=== PATIENT | female | born 1960 | race Caucasian/White ===

== ENCOUNTER → 2016-12-07 | Outpatient (CLI) | payer MEDICAID ==
--- NOTE | 2016-12-12 09:54 | P.ARTDOP ---
Arterial Doppler LOWER EXTREMITY ARTERIAL DOPPLER: DATE OF SERVICE: 12/07/2016 Reason for study: Suspected PVD. Doppler waveforms: Atypical throughout bilaterally. Pulse volume recording: Blunted throughout bilaterally. Pressure gradients: Significant gradient above the low thigh measurement bilaterally. Ankle-brachial indices: 0.64 on the right and 0.65 on the left.. Impression: Moderate bilateral iliofemoral disease suspected. Clinical correlation recommended..
== END | disposition home or self-care (01) ==
LOC: RADUSWWP 21:16
PROVIDERS: ATTEND Internal Medicine
DX: I73.9 Peripheral vascular disease, unspecified (principal)
CPT/HCPCS: 93923

== ENCOUNTER → 2017-08-21 | Outpatient (CLI) | payer MEDICAID ==
--- NOTE | 2017-08-21 12:18 | WWHP ---
[facility] - HISTORY AND PHYSICAL DATE OF SERVICE: 08/21/2017 CHIEF COMPLAINT: The patient is here for her routine gynecologic exam. HPI: This is a 57-year-old, G2, P2-0-0-1 with an LMP of 2002. She is status post PEDRO PABLO/BSO for benign reasons. The patient is here to establish with this office. It has been about 4 years since her last pelvic exam. She is without gynecologic complaints. PAST MEDICAL HISTORY: Chronic hypertension, elevated cholesterol, anxiety, osteopenia, and erythema nodosum. MEDICATIONS: 1. Lisinopril 10 mg daily. 2. Atorvastatin 20 mg daily. 3. Montelukast sodium 10 mg 1 daily p.r.n. 4. Lorazepam 0.5 mg p.r.n. 5. Aspirin 81 mg 1 every other day. 6. Vitamin B complex 1 daily. ALLERGIES: Allergies to IV IODINE, which causes a rash and certain TAPES irritate her skin. PAST SURGICAL HISTORY: Aortic bilateral femoral bypass surgery in 2017, colonoscopy 2011 and this was her fourth one, tonsillectomy at age 6. PAST OB HISTORY: Two vaginal deliveries. One child at 9 months of age from congenital heart disease. 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 She is status post PEDRO PABLO/BSO for benign reasons. SOCIAL HISTORY: She quit smoking in 2017 and previously smoked 1/2 to 1 pack of cigarettes per day. She has about 10 alcohol containing drinks per week and denies drug use. She is and is not seeing anybody at this time and has not been sexually active since 2013. 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 FAMILY HISTORY: Son had congenital heart disease. Mother had breast, colon, and cervical cancer. Father had bone cancer. Sisters had pre-cancerous cervical cells. Mother had type 1 diabetes. Sister has type 2 diabetes. Grandmother has type 1 diabetes. REVIEW OF SYSTEMS: Weight has been stable. She denies respiratory, cardiac or GI problems. PHYSICAL EXAM: Blood pressure 150/73, height 5 feet 9 inches, weight 152 pounds, BMI 22, temperature, pulse 83. This is a well-developed, well-nourished, white female, who is alert and oriented x3, in no acute distress. HEENT is within normal limits. NECK: Supple without mass or thyromegaly. CHEST AND LUNGS: Clear to auscultation. HEART: Regular rate and rhythm. Breasts are without mass or discharge. Axillary exam is negative for adenopathy. BACK: Negative for CVA tenderness. ABDOMEN: Soft, nontender, without palpable masses. PELVIC EXAM: Normal external genitalia with mild atrophy. Vagina reveals mild atrophy without lesions. There is no evidence of prolapse. Bimanual exam is negative for mass or tenderness. Rectovaginal exam is negative for mass or tenderness and is negative for occult blood. EXTREMITIES: Nontender. IMPRESSION: A 57-year-old menopausal female, status post PEDRO PABLO/BSO for benign reasons with normal gynecologic exam. PLAN: 1. Pap smears have been discontinued. 2. Self-breast examination was discussed. 3. Mammogram is due and she has an appointment for the mammogram later this month. An order slip was given to the patient for this. 4. Osteoporosis prevention was discussed. She did have a previous bone density test done and we will obtain records from this. 5. She will return in one year. MMODL / IJN: [id number] /
== END ==
LOC: WWCWWP 08:49
PROVIDERS: ATTEND Obstetrics & Gynecology
DX: Z01.419 Encounter for gynecological examination (general) (routine) without abnormal findings (principal)

== ENCOUNTER → 2017-09-02 | Outpatient (CLI) | payer MEDICAID ==
--- NOTE | 2017-09-03 10:51 | MM ---
Reason for exam: screening (asymptomatic). Last mammogram was performed 4 years and 1 month ago. History: Patient is postmenopausal. Family history of premenopausal breast cancer in mother at age 48 and breast cancer in paternal aunt. Benign right US cyst aspiration of the right breast, July 19, 2008. Took estrogen for 2 years 3 months. Physical Findings: A clinical breast exam by your physician is recommended on an annual basis and results should be correlated with mammographic findings. MG 3D Screening Mammo W/Cad Bilateral CC and MLO view(s) were taken. Prior study comparison: July 21, 2013, bilateral digital screening mammo w/CAD. August 02, 2011, CAD bilateral diagnostic mammogram. The breast tissue is heterogeneously dense. This may lower the sensitivity of mammography. Stable nodule since 2010. No significant changes when compared with prior studies. ASSESSMENT: Benign, BI-RAD 2 RECOMMENDATION: Routine screening mammogram of both breasts in 1 year.
== END | disposition home or self-care (01) ==
LOC: RADMAMWWP 13:50
PROVIDERS: ATTEND Obstetrics & Gynecology
DX: Z12.31 Encounter for screening mammogram for malignant neoplasm of breast (principal)
CPT/HCPCS: 77063; G0202

== ENCOUNTER → 2018-12-24 | Outpatient (CLI) | payer MEDICAID ==
[2018-12-24 09:21] VITALS: BP 171/75; PULSE 84; RESP 20; TEMP 97.6; BMI 24.3
--- NOTE | 2018-12-24 10:57 | P.PN ---
Progress Note - Text Progress Note Date: 12/24/18 Chief Complaint: intermittent bleeding possibly from the vagina over the past 4 months. HPI: This is a 58-year-old 001 with an LMP of 2002. She is status post PEDRO PABLO and BSO for benign reasons in 2001. She has had several episodes where she has had some bleeding from the vaginal or rectal areas. She initially thought this was secondary to a hemorrhoid since she has had problems with hemorrhoids in the past. There have been about 3 times with the bleeding was moderate and could drip into the toilet and was red in color. She states she has not directly looked at the genital and rectal area at these times. By wearing a pad she believes the bleeding was from the vagina yesterday. Yesterday, she had one of the episodes where she noticed blood dripping into the toilet. She states the bleeding does not seem to be associated with bowel movements directly. She has not been sexually active for more than 4 years. She denies putting anything into the vagina. The only activity that she seems to associate with the episodes of bleeding is when she goes out and drinks alcohol. She is not having any bleeding today. ROS: she believes she is getting about 20 pounds since quitting smoking in 2017. Respiratory: she is getting over a cold. She denies any cardiac problems. G.I.: when she eats more sugar, she tends to notice loose stools. She has occasional problems with hemorrhoids. PE: Blood pressure: 171/75, Height: 5'9", Weight: 165 pounds, Temperature: 97.6, Pulse: 84. Pulse oximeter 99%, respiratory rate 20. This is a well developed, well nourished, white female who is alert and orientedx3, in no acute distress. Abdomen: soft, nontender without palpable masses. Pelvic exam: external genitalia reveals mild atrophy without lesions. There is no evidence of blood. The vagina reveals mild atrophy without lesions. There is no evidence of blood or abnormal discharge. No odor is noted. There is no evidence of prolapse. The vaginal cuff is well supported. Bimanual examination is negative for mass or tenderness. Rectovaginal exam: there are no palpable rectal masses or tenderness. This is negative for occult blood. Impression: 1. 58-year-old menopausal female who is status post PEDRO PABLO BSO for benign reasons with intermittent bleeding in the genital area. Differential diagnosis will include bleeding hemorrhoid, vulvar or vaginal bleeding, and less likely, urinary tract bleeding. 2. Unremarkable gynecologic and rectal examination. No evidence of blood is noted at this time. Plan: 1. The patient will keep a symptom calendar. She will try to make note of when this occurs and to see if it is associated with any activity. 2. If she has recurrence of bleeding, she will try to insert a small tampon into the vagina to determine if it is coming from the vagina. I have also asked her to look directly to the vaginal and rectal areas to see if she can see where the blood is coming from. She will also call me see if she can be examined at that time. 3. She will make an appointment for approximately one month for her annual well woman exam. She will also return PRN. Time spent with the patient: 20 minutes
== END ==
LOC: WWCWWP 08:57
PROVIDERS: ATTEND Obstetrics & Gynecology
DX: Z53.9 Procedure and treatment not carried out, unspecified reason (principal)

== ENCOUNTER → 2019-07-20 | Outpatient (CLI) | payer MEDICAID | END | disposition home or self-care (01) | LOC: LABMAIN 22:39 | PROVIDERS: ATTEND Internal Medicine | DX: Z53.9 Procedure and treatment not carried out, unspecified reason (principal) ==

== ENCOUNTER → 2019-07-24 | Outpatient (CLI) | payer MEDICAID ==
--- NOTE | 2019-07-24 12:35 | CT ---
EXAMINATION TYPE: CT chest wo con DATE OF EXAM: 07/24/2019 COMPARISON: Chest x-ray May 04, 2015 HISTORY: 8 mm right upper lobe nodule, recent abnormal outside x-ray. CT DLP: 275.2 mGycm. Automated Exposure Control for Dose Reduction was Utilized. TECHNIQUE: CT scan of the thorax is performed without IV contrast. FINDINGS: LUNGS: Mild underlying emphysematous change most prominent in the upper lungs. [id number] biapi gerardo pleural/parenchymal scarring. Confirmation of 1.0 x 0.9 cm suspicious right upper lobe nodule axi al image 23. No pleural effusion or pneumothorax seen bilaterally. MEDIASTINUM: Lack of IV contrast is noted to limit evaluation for mediastinal and especially hilar ad enopathy. There is borderline subcarinal lymph node measuring 1.6 x 0.9 cm axial image 33. No cardi omegaly or pericardial effusion is seen. Coronary artery calcification is present which is noted jono er for underlying coronary artery disease. OTHER: There is rim calcified 1.0 cm cm splenic artery aneurysm axial image 63 and likely slightly la rger 1.2 cm eccentric rim calcified aneurysm of splenic artery axial image 62. IMPRESSION: Confirmation of suspicious right upper lobe 1.0 cm nodule. Advise PET CT to further evalu ate.
== END | disposition home or self-care (01) ==
LOC: RADCTMAIN 12:00
PROVIDERS: ATTEND Internal Medicine
DX: R91.1 Solitary pulmonary nodule (principal)
CPT/HCPCS: 71250

== ENCOUNTER → 2019-08-01 | Outpatient (CLI) | payer MEDICAID ==
--- NOTE | 2019-08-03 07:00 | PE ---
EXAMINATION TYPE: PET CT fusion skull to thigh DATE OF EXAM: 08/01/2019 COMPARISON: CT chest 07/24/2019 Prior PET/CT: None HISTORY: R 91.1, solitary pulmonary nodule TECHNIQUE: Following the intravenous administration of 12.85 mCi of F-18 FDG, whole body images are performed from the skull base to the midthigh. Images are reviewed on the computer in the coronal, a xial, and sagittal planes. Reconstructed rotating images are created on independent workstation and reviewed on the computer. A localization and attenuation correction CT is performed in conjunction with the PET scan. DLP: 391.03 mGycm SCAN: Initial Blood glucose: 96 mg/dL Average Mediastinum SUV: 1.80 Average Liver SUV: 2.12 FINDINGS: NECK: No abnormal uptake THORAX: There is a focus of radiotracer accumulation within the peripheral right upper lung field cor responding to the solitary pulmonary nodule. This has an SUV value of 3.22. Image 91. There is incre ased radiotracer accumulation in the posterior medial right hilum. This has an SUV value of 4.71, melany ge 103. ABDOMEN: No abnormal uptake PELVIS: No abnormal uptake OSSEOUS STRUCTURES: No abnormal uptake LOCALIZATION CT: Small nodule in the posterior mediastinum corresponds to the uptake on the PET scan. COMPARISON: The thyroid is enlarged and somewhat heterogenous. Findings are stable from the recent CT comparison. IMPRESSION: 1. Uptake within the periphery of the right lung with some uptake within the posterior right hilar/sp inal region viable neoplastic process. Primary and metastatic lesions are within the differential.
== END | disposition home or self-care (01) ==
LOC: RADPETMAIN 11:23
PROVIDERS: ATTEND Internal Medicine
DX: R91.8 Other nonspecific abnormal finding of lung field (principal)
CPT/HCPCS: 78815; A9552

== ENCOUNTER → 2019-09-21 | Outpatient (CLI) | payer MEDICAID ==
--- NOTE | 2019-09-22 07:11 | MR ---
EXAMINATION TYPE: MR brain wo/w con DATE OF EXAM: 09/22/2019 COMPARISON: None HISTORY: F/u to recent lung ca dx CONTRAST: Performed utilizing 7.5 mL intravenous Gadavist gadolinium contrast. TECHNIQUE: Multiplanar, multiecho imaging on a 3.0 Vanita magnet is performed through the brain. Stud y is performed within 24 hours of arrival to the hospital. The craniovertebral junction is normal. The pituitary is normal. Diffusion-weighted imaging is performed. No abnormal hyperintensity is present to suggest an acute i ntracranial infarct or acute ischemic change. There is some T2 hyperintensity within the inferior pos terior cerebellum on the left. Small prior lacunar infarcts could be considered. There is scattered periventricular and subcortical white matter changes. Largest of these is within t he left subcortical parietal lobe white matter and measures 1.4 x 1.1 cm. Series 501 image 19. On the right subcortical white matter changes within the centrum semiovale has a transverse dimension of 0. 7 cm. Series 501 image 21. These are nonspecific but could be related to microvascular ischemic brown e among other etiologies. Some white matter changes within the brainstem. No suspicious enhancing lesions are evident. Ventricles and sulci are appropriate for the patient age. Paranasal sinuses and mastoid air cells within the [id number] are clear. IMPRESSIONS: 1. No suspicious changes suggest metastatic disease. 2. There are multiple scattered bilateral periventricular, subcortical and deep white matter changes within the brain and brainstem. 3. Old tiny subcortical infarcts may be within the left cerebellum
== END | disposition home or self-care (01) ==
LOC: RADMRIMAIN 21:33
PROVIDERS: ATTEND Internal Medicine
DX: I63.9 Cerebral infarction, unspecified (principal); R90.82 White matter disease, unspecified; C34.11 Malignant neoplasm of upper lobe, right bronchus or lung
CPT/HCPCS: 70553; A9585

== ENCOUNTER → 2019-09-22 | Outpatient (CLI) | payer MEDICAID ==
[2019-09-22 12:09] LABS: Basophils # (A) 0.1 k/uL (0-0.2); Basophils % (A) 1 %; Eosinophils # (A) 0.1 k/uL (0-0.7); Eosinophils % (A) 2 %; HCT 41.9 % (34.0-46.0); Lymphocytes # (A) 1.3 k/uL (1.0-4.8); Lymphocytes % (A) 31 %; MCHC 33.5 g/dL (31.0-37.0); MCV 92.5 fL (80.0-100.0); Mean Platelet Volume 6.6; Monocytes # (A) 0.2 k/uL (0-1.0); Monocytes % (A) 3 %; Neutrophils # (A) 2.6 k/uL (1.3-7.7); Neutrophils % (A) 62 %; Platelet Count 302 k/uL (150-450); RBC 4.53 m/uL (3.80-5.40); RDW 13.3 % (11.5-15.5); WBC 4.3 k/uL (3.8-10.6)
[2019-09-22 12:14] LABS: ALT 21 U/L (4-34); AST 22 U/L (14-36); African American GFR (CKD) 84 (>60 ml/min/1.73 sqM); Albumin 4.6 g/dL (3.5-5.0); Albumin/Globulin Ratio 1.6; Alkaline Phosphatase 69 U/L (38-126); Anion Gap 9 mmol/L; Blood Urea Nitrogen 16 mg/dL (7-17); Calcium 9.9 mg/dL (8.4-10.2); Carbon Dioxide 26 mmol/L (22-30); Chloride 106 mmol/L (98-107); Globulin 2.8 g/dL; Glucose 149 mg/dL (74-99); Non-African American GFR(CKD) 73 (>60 ml/min/1.73 sqM); Potassium 4.8 mmol/L (3.5-5.1); Sodium 141 mmol/L (137-145); Total Bilirubin 0.6 mg/dL (0.2-1.3); Total Protein 7.4 g/dL (6.3-8.2)
== END ==
LOC: LABMAIN 11:27
PROVIDERS: ATTEND Nurse Practitioner
DX: C34.11 Malignant neoplasm of upper lobe, right bronchus or lung (principal)
CPT/HCPCS: 36415; 80053; 85025

== ENCOUNTER → 2019-10-05 | Outpatient (CLI) | payer MEDICAID ==
--- NOTE | 2019-10-06 02:26 | XR ---
EXAMINATION TYPE: XR Hip RT and AP Pelvis DATE OF EXAM: 10/06/2019 COMPARISON: NONE HISTORY: Pain TECHNIQUE: 3 views FINDINGS: Pelvic ring appears to show a nondisplaced transverse fracture through the medial aspect of the right acetabulum. This is best seen on the coned-down view of the hip. The proximal femurs are i ntact. Sacroiliac joints are normal. Hip joint spaces are fairly normal. IMPRESSION: There is probably a nondisplaced fracture medial right acetabulum.
== END | disposition home or self-care (01) ==
LOC: RADXRMAIN 23:23
PROVIDERS: ATTEND Physician Assistant
DX: S79.911A Unspecified injury of right hip, initial encounter (principal)
CPT/HCPCS: 73502

== ENCOUNTER → 2019-10-06 | Outpatient (CLI) | payer MEDICAID ==
[2019-10-06 10:10] LABS: Basophils % (A) 1 %; Eosinophils # (A) 0.1 k/uL (0-0.7); Eosinophils % (A) 2 %; HCT 37.8 % (34.0-46.0); HGB 13.2 gm/dL (11.4-16.0); Lymphocytes % (A) 36 %; MCH 31.3 pg (25.0-35.0); MCHC 34.8 g/dL (31.0-37.0); MCV 90.1 fL (80.0-100.0); Mean Platelet Volume 6.5; Monocytes # (A) 0.1 k/uL (0-1.0); Monocytes % (A) 4 %; Neutrophils # (A) 1.4 k/uL (1.3-7.7); Neutrophils % (A) 54 %; Platelet Count 272 k/uL (150-450); RDW 13.6 % (11.5-15.5); WBC 2.7 k/uL (3.8-10.6)
[2019-10-06 10:19] LABS: ALT 38 U/L (4-34); AST 36 U/L (14-36); African American GFR (CKD) >90 (>60 ml/min/1.73 sqM); Albumin 4.6 g/dL (3.5-5.0); Albumin/Globulin Ratio 1.5; Alkaline Phosphatase 77 U/L (38-126); Anion Gap 11 mmol/L; Blood Urea Nitrogen 28 mg/dL (7-17); Calcium 9.7 mg/dL (8.4-10.2); Carbon Dioxide 21 mmol/L (22-30); Chloride 108 mmol/L (98-107); Glucose 115 mg/dL (74-99); Non-African American GFR(CKD) 81 (>60 ml/min/1.73 sqM); Potassium 4.5 mmol/L (3.5-5.1); Sodium 140 mmol/L (137-145); Total Bilirubin 0.6 mg/dL (0.2-1.3); Total Protein 7.6 g/dL (6.3-8.2)
== END | disposition home or self-care (01) ==
LOC: LABMAIN 09:46
PROVIDERS: ATTEND Nurse Practitioner
DX: C34.11 Malignant neoplasm of upper lobe, right bronchus or lung (principal)
CPT/HCPCS: 36415; 80053; 85025

== ENCOUNTER → 2019-10-06 | Outpatient (CLI) | payer MEDICAID ==
--- NOTE | 2019-10-06 10:57 | CT ---
EXAMINATION TYPE: CT hip RT wo con DATE OF EXAM: 10/06/2019 COMPARISON: Pelvic and right hip x-ray earlier today HISTORY: Fall on Sep 18, abn xrays CT DLP: 609.5 mGycm Automated exposure control for dose reduction was used. FINDINGS: Correlating with x-ray there is linear lucency consistent with acute nondisplaced fracture involving the anterior wall and column of acetabulum seen coronal images 33 through 37 in a oblique irregular c ourse less well seen on sagittal and axial images but visualization on axial image 14 is noted. No si gnificant separation. Mild to moderate axial joint space loss right hip is present. No additional pro ximal femur fracture. Pubic symphysis is intact. Pelvic rami show no fracture or extension. Posterior wall and column are intact. Visualized pelvis shows no concerning bowel dilatation or fluid collection. Uterus is suspected surgi bruna absent or atrophic. No free air. Visualized right groin shows no suspicious adenopathy or hernia. Multiple is maintained. IMPRESSION: Confirmation of acute nondisplaced fracture involving the right acetabulum through the an terior wall and column as detailed above.
== END | disposition home or self-care (01) ==
LOC: RADXRMAIN 10:33
PROVIDERS: ATTEND Emergency Medicine
DX: S32.414A Nondisplaced fracture of anterior wall of right acetabulum, initial encounter for closed fracture (principal); S32.434A Nondisplaced fracture of anterior column [iliopubic] of right acetabulum, initial encounter for closed fracture

== ENCOUNTER → 2019-10-20 | Outpatient (CLI) | payer MEDICAID | END | disposition home or self-care (01) | LOC: LABMAIN 10:24 | PROVIDERS: ATTEND Internal Medicine | DX: Z53.9 Procedure and treatment not carried out, unspecified reason (principal) ==

== ENCOUNTER → 2019-11-07 | Outpatient (CLI) | payer MEDICAID ==
--- NOTE | 2019-11-07 20:55 | XR ---
EXAMINATION TYPE: XR Hip Complete RT DATE OF EXAM: 11/07/2019 COMPARISON: 10/06/2019 HISTORY: 59-year-old female history of right acetabular fracture, follow-up exam TECHNIQUE: 2 views FINDINGS: Subtle lucency is seen along the medial acetabular wall at king iliopubic junction. The lucency is le ss well depicted as compared to prior exam. IMPRESSION: Interval incomplete healing change involving the medial right acetabulum. Very subtle lucency remains .
== END | disposition home or self-care (01) ==
LOC: RADXRMAIN 15:28
PROVIDERS: ATTEND Orthopaedic Surgery
DX: S32.491 Other specified fracture of right acetabulum (principal)
CPT/HCPCS: 73502

== ENCOUNTER → 2019-11-07 | Outpatient (CLI) | payer MEDICAID ==
[2019-11-07 16:52] LABS: Anisocytosis Slight; HCT 31.7 % (34.0-46.0); HGB 11.1 gm/dL (11.4-16.0); Hyperchromasia Slight; MCH 32.7 pg (25.0-35.0); MCHC 34.9 g/dL (31.0-37.0); MCV 93.7 fL (80.0-100.0); Macrocytosis Slight; Platelet Count 251 k/uL (150-450); Poikilocytosis Slight; RBC 3.39 m/uL (3.80-5.40); RDW 18.2 % (11.5-15.5); WBC 1.7 k/uL (3.8-10.6)
[2019-11-07 20:36] LABS: Eosinophils # (M) 0.05 k/uL (0-0.7); Lymphocytes # (M) 0.66 k/uL (1.0-4.8); Monocytes # (M) 0.19 k/uL (0-1.0); Neutrophils % (M) 47 %; Nucleated Red Blood Cells 0 /100 WBC (0-0); Total Cells Counted 100
[2019-11-07 23:00] LABS: African American GFR (CKD) 92.9 (60.0-200.0); Albumin 4.8 g/dL (3.80-4.90); Albumin/Globulin Ratio 2.18 (1.60-3.17); Anion Gap 10.9 mmol/L (4.00-12.00); BUN/Creat Ratio 26.25 Ratio (12.00-20.00); Calcium 10.1 mg/dL (8.7-10.3); Carbon Dioxide 23.1 mmol/L (21.6-31.8); Globulin 2.2 g/dL (1.6-3.3); Non-African American GFR(CKD) 80.1 (60.0-200.0); Potassium 4.1 mmol/L (3.5-5.5); Total Bilirubin 0.6 mg/dL (0.2-1.2)
== END | disposition home or self-care (01) ==
LOC: LABMAIN 15:31
PROVIDERS: ATTEND Internal Medicine
DX: C34.11 Malignant neoplasm of upper lobe, right bronchus or lung (principal)
CPT/HCPCS: 36415; 80053; 85025

== ENCOUNTER → 2019-11-17 | Outpatient (CLI) | payer MEDICAID ==
[2019-11-17 15:14] LABS: Anisocytosis Slight; HCT 33.1 % (34.0-46.0); HGB 11.7 gm/dL (11.4-16.0); Hyperchromasia Slight; MCH 33.7 pg (25.0-35.0); MCHC 35.4 g/dL (31.0-37.0); MCV 95.1 fL (80.0-100.0); Macrocytosis Slight; Mean Platelet Volume 6.7; Platelet Count 312 k/uL (150-450); Poikilocytosis Slight; RBC 3.48 m/uL (3.80-5.40); RDW 17.6 % (11.5-15.5); WBC 2.3 k/uL (3.8-10.6)
[2019-11-17 15:57] LABS: Band Neutrophils % 2 %; Lymphocytes # (M) 0.69 k/uL (1.0-4.8); Monocytes # (M) 0.16 k/uL (0-1.0); Neutrophils % (M) 61 %; Nucleated Red Blood Cells 0 /100 WBC (0-0); Total Cells Counted 100
[2019-11-17 18:41] LABS: African American GFR (CKD) 80.5 (60.0-200.0); Albumin 4.6 g/dL (3.80-4.90); Albumin/Globulin Ratio 2.19 (1.60-3.17); Anion Gap 9.5 mmol/L (4.00-12.00); BUN/Creat Ratio 22.22 Ratio (12.00-20.00); Calcium 9.4 mg/dL (8.7-10.3); Carbon Dioxide 22.5 mmol/L (21.6-31.8); Globulin 2.1 g/dL (1.6-3.3); Non-African American GFR(CKD) 69.5 (60.0-200.0); Potassium 3.8 mmol/L (3.5-5.5); Total Bilirubin 0.5 mg/dL (0.2-1.2); Total Protein 6.7 g/dL (6.2-8.2)
== END | disposition home or self-care (01) ==
LOC: LABMAIN 14:31
PROVIDERS: ATTEND Internal Medicine
DX: C34.11 Malignant neoplasm of upper lobe, right bronchus or lung (principal)
CPT/HCPCS: 36415; 80053; 85025

== ENCOUNTER → 2019-12-22 | Outpatient (CLI) | payer MEDICAID | END | disposition home or self-care (01) | LOC: LABMAIN 18:31 | PROVIDERS: ATTEND Internal Medicine | DX: Z53.9 Procedure and treatment not carried out, unspecified reason (principal) ==

== ENCOUNTER → 2019-12-25 | Outpatient (CLI) | payer MEDICAID ==
--- NOTE | 2019-12-29 06:16 | PE ---
EXAMINATION TYPE: PET CT fusion skull to thigh DATE OF EXAM: 12/25/2019 COMPARISON: Prior PET/CT August 01, 2019 HISTORY: Lung cancer progress study. TECHNIQUE: Following the intravenous administration of 11.725 mCi of F-18 FDG, whole body images are performed from the skull base to the midthigh. Images are reviewed on the computer in the coronal, axial, and sagittal planes. Reconstructed rotating images are created on independent workstation and reviewed on the computer. A noncontrast CT is performed in conjunction with the PET scan. SCAN: Subsequent Scan FINDINGS: SKULL BASE AND NECK: No new areas of abnormal hypermetabolic uptake. CHEST, MEDIASTINUM, AND HILAR REGION: Background mild to moderate underlying emphysematous change red emonstrated. Interval improvement in lateral right upper lobe hypermetabolic nodule now measuring 8 x 8 mm axial i mage 84 currently ametabolic versus 10 x 11 mm prior study image 91 where had hypermetabolic uptake. Interval resolution of abnormal hypermetabolic uptake in the subcentimeter right infrahilar lymph nod e prior study axial image 101. No residual hypermetabolic uptake or enlarged nodule seen on current s tudy. No new suspicious nodules or new concerning areas of hypermetabolic uptake. ABDOMEN AND PELVIS: No new adrenal masses. No new areas of abnormal hypermetabolic uptake. Normal exc retion. OSSEOUS STRUCTURES: Mild hypermetabolic uptake lateral aspect right inferior pelvic ramus correspondi ng to subacute or healing fracture axial image 239 narrowing shield tuberosity and the right superior pelvic ramus laterally near the anterior wall acetabulum axial image 223 corresponding to additional healing or subacute fracture. Both new from prior PET/CT. These findings discussed on right hip CT D [id number]. No areas of suspicious hypermetabolic uptake to suggest metastatic disease. OTHER CT: Moderate to severe calcified plaque carotid bulb level right greater than left is redemonst rated. Coronary artery calcification redemonstrated which is noted marker for underlying coronary artery dis ease. Small hiatal hernia redemonstrated. Small calcified splenic artery aneurysms again seen. Moderate-sized fat-containing umbilical hernia r edemonstrated. Uterus surgically absent or markedly atrophic. Spine is straightened on sagittal images. IMPRESSION: 1. Complete positive PET response without residual hypermetabolic uptake in the right upper lung nodu le or right infrahilar adenopathy. No new areas of suspicious hypermetabolic uptake. 2. Better visualization of healing subacute fractures right pelvis lateral aspect superior pelvic ronnie us involving the anterior wall and column of acetabulum and lateral aspect inferior pelvic ramus whic h was less convincing on CT at time of injury. sss
== END | disposition home or self-care (01) ==
LOC: RADPETMAIN 13:48
PROVIDERS: ATTEND Internal Medicine
DX: S32.43 Fracture of anterior column [iliopubic] of acetabulum (principal); S32.591G Other specified fracture of right pubis, subsequent encounter for fracture with delayed healing; C34.11 Malignant neoplasm of upper lobe, right bronchus or lung
CPT/HCPCS: 78815; A9552

== ENCOUNTER → 2020-04-05 | Outpatient (CLI) | payer MEDICAID ==
[2020-04-05 23:32] LABS: Basophils # (A) 0.1 k/uL (0-0.2); Basophils % (A) 1 %; Eosinophils # (A) 0.2 k/uL (0-0.7); Eosinophils % (A) 4 %; HCT 39.5 % (34.0-46.0); HGB 13.1 gm/dL (11.4-16.0); Lymphocytes # (A) 1.3 k/uL (1.0-4.8); Lymphocytes % (A) 26 %; MCH 30.8 pg (25.0-35.0); MCHC 33.2 g/dL (31.0-37.0); MCV 92.7 fL (80.0-100.0); Mean Platelet Volume 6.4; Monocytes # (A) 0.3 k/uL (0-1.0); Monocytes % (A) 7 %; Neutrophils # (A) 2.9 k/uL (1.3-7.7); Neutrophils % (A) 60 %; Platelet Count 237 k/uL (150-450); RBC 4.26 m/uL (3.80-5.40); RDW 13.5 % (11.5-15.5); WBC 4.9 k/uL (3.8-10.6)
[2020-04-05 23:46] LABS: Appearance,Urine Clear (Clear); Bacteria,Urine Rare /hpf; Bilirubin,Urine Negative (Negative); Blood,Urine Negative (Negative); Color,Urine Light Yellow; Glucose,Urine (UA) Negative (Negative); Hyaline Casts,Urine 1 /lpf (0-2); Ketones,Urine Negative (Negative); Leukocyte Esterase,Urine Small (Negative); Mucus,Urine Rare /hpf; Nitrite,Urine Negative (Negative); Protein,Urine Negative (Negative); RBC,Urine <1 /hpf (0-5); Squamous Epithelial Cell,Urine <1 /hpf (0-4); Urobilinogen,Urine <2.0 mg/dL (<2.0); WBC,Urine 1 /hpf (0-5)
[2020-04-06 13:55] LABS: African American GFR (CKD) 70.4 (60.0-200.0); Albumin 4.6 g/dL (3.80-4.90); Anion Gap 11.2 mmol/L (4.00-12.00); Calcium 9.6 mg/dL (8.7-10.3); Carbon Dioxide 20.8 mmol/L (21.6-31.8); Chol/HDL Ratio 3.91; Globulin 2.3 g/dL (1.6-3.3); Non-African American GFR(CKD) 60.8 (60.0-200.0); Total Bilirubin 0.4 mg/dL (0.2-1.2); Total Protein 6.9 g/dL (6.2-8.2)
== END | disposition home or self-care (01) ==
LOC: LABMAIN 16:26
PROVIDERS: ATTEND Internal Medicine
DX: F41.9 Anxiety disorder, unspecified (principal); I10 Essential (primary) hypertension; E55.9 Vitamin D deficiency, unspecified; Z13.9 Encounter for screening, unspecified
CPT/HCPCS: 36415; 80053; 80061; 81001; 82306; 84443; 85025; 86803

== ENCOUNTER 2020-05-20 12:30 | Emergency (ER) | payer MEDICAID ==
[2020-05-20 12:43] VITALS: BP 155/82; PULSE 99; RESP 18; TEMP 98.2
--- NOTE | 2020-05-20 13:24 | ED ---
Lower Extremity Injury HPI - General Chief Complaint: Extremity Injury, Lower Stated Complaint: r foot injury Time Seen by Provider: 05/20/20 12:46 Source: patient Mode of arrival: ambulatory Limitations: no limitations - History of Present Illness Initial Comments: Patient is a 60-year-old female presenting to the emergency Department with complaints of pain in her right foot. Patient states 2 days ago she dropped the lid of a crock pot onto her right foot. Patient states since then she has been limping, swollen and bruised. She denies any previous history of foot fractures. She has no further complaints at this time. Of note, patient is being treated for a mild pelvic fracture on the same right side. Upon arrival to the ER her vitals are stable. - Related Data Home Medications Medication Instructions Recorded Confirmed Atorvastatin [Lipitor] 20 mg PO HS 12/24/18 12/24/18 Lisinopril [Zestril] 10 mg PO DAILY 12/24/18 12/24/18 Montelukast [Singulair] 10 mg PO DAILY PRN 12/24/18 12/24/18 valACYclovir [Valtrex] 500 mg PO DAILY PRN 12/24/18 12/24/18 Allergies Allergy/AdvReac Type Severity Reaction Status Date / Time morphine AdvReac Severe HULLUCINATI Verified 05/20/20 12:43 ON shellfish derived [Shellfish] AdvReac Swelling Verified 05/20/20 12:43 MEDICAL TAPE AdvReac Rash/Hives Uncoded 05/20/20 12:43 Review of Systems ROS Statement: Those systems with pertinent positive or pertinent negative responses have been documented in the HPI. ROS Other: All systems not noted in ROS Statement are negative. Past Medical History Past Medical History: Hypertension Additional Past Medical History / Comment(s): Broken Pelvis History of Any Multi-Drug Resistant Organisms: None Reported Past Surgical History: Hysterectomy, Tonsillectomy Additional Past Surgical History / Comment(s): Aortic Bifemeral Bypass March 13, 2017 Past Psychological History: No Psychological Hx Reported Smoking Status: Never smoker Past Alcohol Use History: None Reported Past Drug Use History: None Reported General Exam - General Exam Comments Initial Comments: GENERAL: Patient is well-developed and well-nourished. Patient is nontoxic and in no acute distress. HEAD: Atraumatic, normocephalic. EYES: Pupils equal round and reactive to light, extraocular movements intact, sclera anicteric, conjunctiva are normal. Eyelids were unremarkable. ENT: Nares patent, oropharynx clear without exudates. Moist mucous membranes. NECK: Normal range of motion, supple without lymphadenopathy or JVD. LUNGS: Unlabored respirations. Breath sounds clear to auscultation bilaterally and equal. No wheezes rales or rhonchi. HEART: Regular rate and rhythm without murmurs, rubs or gallops. ABDOMEN: Soft, nontender, normoactive bowel sounds. No guarding, no rebound. No masses appreciated. : Deferred MUSCULOSKELETAL: Patient has pain with palpation of the dorsal aspect of her right foot, she does also have moderate swelling, bruising to the area. She does have full right ankle and foot range of motion. She is neurovascular intact. No clubbing or cyanosis. NEUROLOGICAL: Normal speech, normal gait. PSYCH: Normal mood, normal affect. SKIN: Warm, Dry, normal turgor, no rashes or lesions noted. Limitations: no limitations Course Vital Signs 05/20/20 12:39 Temperature 98.2 F Pulse Rate 99 Respiratory 18 Rate Blood Pressure 155/82 O2 Sat by Pulse 98 Oximetry Medical Decision Making - Medical Decision Making Patient is a 60-year-old female here for right foot pain after dropping a lid of a crock pot onto the top of her right foot 2 days ago. She does have significant swelling, bruising, pain. X-rays the right foot reveal no acute fractures dislocations, and accessory navicular is present. Patient will continue with ice, elevation for pain. She states she does have a walking boot from a previous injury that she may use for discomfort. She can follow up with her PCP if symptoms persist. She is agreeable with this plan of care. She is stable for discharge. Case discussed with Dr. Lindsay. Disposition Clinical Impression: Contusion of right foot Disposition: HOME SELF-CARE Condition: Stable Instructions (If sedation given, give patient instructions): Foot Contusion (ED) Additional Instructions: Please return to the Emergency Department if symptoms worsen or any other concerns. Continue with ice, elevation. May take ibuprofen for discomfort. Follow up with PCP or orthopedics if symptoms persist. Is patient prescribed a controlled substance at d/c from ED?: No Referrals: Frank Salazar MD [Primary Care Provider] - 1-2 days
--- NOTE | 2020-05-20 13:33 | XR ---
EXAMINATION TYPE: XR foot complete RT DATE OF EXAM: 05/20/2020 COMPARISON: NONE HISTORY: 60-year-old female with pain and swelling TECHNIQUE: 3 views FINDINGS: Mild degenerative change at the first MTP joint. Incidental type I versus type II accessory navicular . There is a Abraham's toe. An os peroneum is also noted. Dorsal soft tissue swelling along the forefo ot and midfoot. Small plantar calcaneal spur. No acute fracture, subluxation, dislocation seen. IMPRESSION: Dorsal sided soft tissue swelling. No acute osseous abnormality seen.
== END 2020-05-20 13:45 | disposition home or self-care (01) ==
LOC: EC 12:30
DX: S90.31XA Contusion of right foot, initial encounter (principal); I10 Essential (primary) hypertension; Z79.899 Other long term (current) drug therapy; Z88.5 Allergy status to narcotic agent; Z91.013 Allergy to seafood; Z88.8 Allergy status to other drugs, medicaments and biological substances; W27.4XXA Contact with kitchen utensil, initial encounter; Y92.009 Unspecified place in unspecified non-institutional (private) residence as the place of occurrence of the external cause
CPT/HCPCS: 99283

== ENCOUNTER → 2020-05-20 | Outpatient (CLI) | payer MEDICAID ==
--- NOTE | 2020-05-20 18:44 | BD ---
EXAMINATION TYPE: Axial Bone Density DATE OF EXAM: 05/20/2020 COMPARISON: 08.02.11 CLINICAL HISTORY: 60 YR OLD FEMALE.....ICD-10 CODE.. XXD FRACTURE. Height: 67 Weight: 175 FRAX RISK QUESTIONS: Glucocorticoids (More than 3mos): YES (Ex: prednisone, prednisolone, methylprednisolone, dexamethasone, and hydrocortisone). History of Fracture in Adulthood: YES Secondary Osteoporosis: YES 3. Menopause before 45: YES Current Tobacco Use: QUIT 3 YRS AGO RISK FACTORS HISTORY OF: PELVIC FRACTURE LT YR Hip Fracture RT HIP....LAST YR Spine Fracture: NONE TO HER KNOWLEDGE Active: NO....USING WALKER...HEALING FRACTURES Postmenopausal woman: YES, AT AGE 41 YRS OLD...TOTAL HYST Take estrogen and/or progesterone medications: ON FOR ONLY 1 YR Lost more than 2 inches in height since high school: YES Frequent falls: UNSTEADY Hyperparathyroidism: NO Adrenal Insufficiency: NO MEDICATIONS: Prednisone or other steroids: LUNG INHALER PRN, FOR YRS Additional Medications: BP MEDS, ZOLOFT, ATIVAN PRN, HX OF CHEMO AND RADIATION, REFLUX MEDS, VIT D , Additional History: HX PF HEALING FXS OF PELVIS, RT HIP, HYPERTENSION, LUNG CANCER EXAM MEASUREMENTS: Bone mineral densitometry was performed using the [employer] System. Bone mineral density as measured about the Lumbar spine is: ----- L1-L4(G/cm2): 1.030 T Score Values are as follows: ----- L1: -1.1 ----- L2: -2.4 ----- L3: -1.0 ----- L4: -0.5 ----- L1-L4: -1.3 Bone mineral density has: Increased 3.7% since study of: 08.02.2011 Bone mineral density about the L hip (g/cm2): 0.710 T Score values are as follows: -----L Neck: -2.4 -----L Total: -2.4 Bone mineral density has: Decreased -0.3% since study of: 08.02.2011 FRAX%s: THERE IS A 30.4% CHANCE FOR A MAJOR OSTEOPOROTIC FX AND 7.0% FOR HIP....PROBABILITY FOR F X IN 10 YRS TIME IMPRESSION: Osteopenia (T Score between -2.5 and -1). Note that measurements border on osteoporosis at the left h ip. There is slightly increased risk of fracture and the patient may be considered for treatment. Re-Screen 2-5 years. NOTE: T-SCORE=SD OF THE YOUNG ADULT MEAN.
== END | disposition home or self-care (01) ==
LOC: RADBDWWP 11:02
PROVIDERS: ATTEND Internal Medicine
DX: M85.80 Other specified disorders of bone density and structure, unspecified site (principal)
CPT/HCPCS: 77080

== ENCOUNTER → 2020-06-18 | Outpatient (CLI) | payer MEDICAID ==
--- NOTE | 2020-06-20 06:16 | PE ---
EXAMINATION TYPE: PET CT fusion skull to thigh DATE OF EXAM: 06/18/2020 COMPARISON: Prior PET/CT December 25, 2019 and older study August 01, 2019 HISTORY: Right upper lung cancer 2019 progress study. TECHNIQUE: Following the intravenous administration of 10.83 mCi of F-18 FDG, whole body images are performed from the skull base to the midthigh. Images are reviewed on the computer in the coronal, a xial, and sagittal planes. Reconstructed rotating images are created on independent workstation and reviewed on the computer. A noncontrast CT is performed in conjunction with the PET scan. SCAN: Subsequent Scan FINDINGS: SKULL BASE AND NECK: No new areas of suspicious hypermetabolic uptake. CHEST, MEDIASTINUM, AND HILAR REGION: Background mild to moderate underlying emphysematous changes re demonstrated. Continued improvement in the lateral inferior right upper lobe nodule now measuring 5 x 5 mm axial im age 89 and remains ametabolic (max suv <2.5). No new areas of abnormal hypermetabolic uptake including right infrahilar region at the area of prior adenopathy. ABDOMEN AND PELVIS: No adrenal masses. Normal excretion. No new areas of suspicious hypermetabolic up take. OSSEOUS STRUCTURES: No new areas of abnormal hypermetabolic uptake. OTHER CT: Moderate to severe calcified plaque right greater than left carotid bulb is redemonstrated. Coronary artery calcification redemonstrated . Small hiatal hernia redemonstrated. Small calcified splenic artery aneurysms again seen. Moderate-sized fat-containing umbilical hernia r edemonstrated. Uterus surgically absent or markedly atrophic. Liver slightly hypodense relative to sp diane consistent with mild diffuse fatty infiltration. Aorto iliac stent graft redemonstrated. IMPRESSION: No new areas of suspicious hypermetabolic uptake to suggest active neoplastic recurrence.
== END | disposition home or self-care (01) ==
LOC: RADPETMAIN 09:05
PROVIDERS: ATTEND Internal Medicine
DX: C34.11 Malignant neoplasm of upper lobe, right bronchus or lung (principal); R91.1 Solitary pulmonary nodule
CPT/HCPCS: 78815; A9552

== ENCOUNTER → 2020-08-29 | Outpatient (CLI) | payer MEDICAID ==
--- NOTE | 2020-08-29 22:42 | XR ---
EXAMINATION TYPE: XR pelvis AP view DATE OF EXAM: 08/29/2020 COMPARISON: 05/06/2020 HISTORY: Follow-up fracture TECHNIQUE: Single view FINDINGS: There is some callus formation consistent with healing fracture of the right inferior pubic ramus. The sacroiliac joints appear intact. Proximal femurs are intact. IMPRESSION: Healing fracture of the right ischium at the inferior pubic ramus without change in posit ion compared to old exam.
--- NOTE | 2020-08-29 22:44 | XR ---
EXAMINATION TYPE: XR foot complete RT DATE OF EXAM: 08/29/2020 COMPARISON: NONE HISTORY: Foot pain TECHNIQUE: 3 views FINDINGS: The metatarsals are intact. The toes appear intact. I see no fracture nor dislocation. Ther e is mild plantar and Achilles calcaneal spurring. IMPRESSION: No acute abnormality of the right foot.
== END | disposition home or self-care (01) ==
LOC: RADXRMAIN 22:14
PROVIDERS: ATTEND Surgery Surgical Oncology
DX: M84.350 Stress fracture, pelvis (principal); M79.671 Pain in right foot; C34.11 Malignant neoplasm of upper lobe, right bronchus or lung
CPT/HCPCS: 72170

== ENCOUNTER → 2020-10-05 | Outpatient (CLI) | payer MEDICAID ==
[2020-10-05 13:41] LABS: Basophils % (A) 1 %; Eosinophils # (A) 0.1 k/uL (0-0.7); Eosinophils % (A) 3 %; HCT 39.2 % (34.0-46.0); HGB 13.6 gm/dL (11.4-16.0); Lymphocytes # (A) 1.2 k/uL (1.0-4.8); Lymphocytes % (A) 29 %; MCH 31.4 pg (25.0-35.0); MCHC 34.7 g/dL (31.0-37.0); MCV 90.5 fL (80.0-100.0); Mean Platelet Volume 6.3; Monocytes # (A) 0.2 k/uL (0-1.0); Monocytes % (A) 5 %; Neutrophils # (A) 2.5 k/uL (1.3-7.7); Neutrophils % (A) 59 %; Platelet Count 261 k/uL (150-450); RBC 4.33 m/uL (3.80-5.40); RDW 13.6 % (11.5-15.5); WBC 4.2 k/uL (3.8-10.6)
[2020-10-05 13:51] LABS: Appearance,Urine Clear (Clear); Bilirubin,Urine Negative (Negative); Blood,Urine Negative (Negative); Color,Urine Yellow; Glucose,Urine (UA) Negative (Negative); Ketones,Urine Negative (Negative); Leukocyte Esterase,Urine Trace (Negative); Mucus,Urine Rare /hpf; Nitrite,Urine Negative (Negative); Protein,Urine Negative (Negative); RBC,Urine <1 /hpf (0-5); Specific Gravity,Urine 1.015 (1.001-1.035); Squamous Epithelial Cell,Urine <1 /hpf (0-4); Urobilinogen,Urine <2.0 mg/dL (<2.0); WBC,Urine 1 /hpf (0-5)
[2020-10-06 04:32] LABS: Albumin 4.6 g/dL (3.80-4.90); Anion Gap 11.4 mmol/L (4.00-12.00); BUN/Creat Ratio 27.78 Ratio (12.00-20.00); Calcium 9.5 mg/dL (8.7-10.3); Carbon Dioxide 21.6 mmol/L (21.6-31.8); Globulin 2.3 g/dL (1.6-3.3); LDL Cholesterol,Calculated 144.4 mg/dL (0.0-131.0); Potassium 4.8 mmol/L (3.5-5.5); Total Bilirubin 0.4 mg/dL (0.2-1.2); Total Protein 6.9 g/dL (6.2-8.2); VLDL Calculation 20.6 mg/dL (5.00-40.00)
[2020-10-06 04:51] LABS: Folate, Serum 12.6 ng/mL
== END | disposition home or self-care (01) ==
LOC: LABMAIN 12:39
PROVIDERS: ATTEND Internal Medicine
DX: E55.9 Vitamin D deficiency, unspecified (principal); R53.83 Other fatigue; I10 Essential (primary) hypertension; Z86.19 Personal history of other infectious and parasitic diseases
CPT/HCPCS: 36415; 80053; 80061; 81001; 82306; 82607; 82746; 84443; 85025; 86769

== ENCOUNTER → 2020-12-22 | Outpatient (CLI) | payer MEDICAID ==
[2020-12-22 16:41] LABS: Basophils % (A) 1 %; Eosinophils # (A) 0.1 k/uL (0-0.7); Eosinophils % (A) 3 %; HGB 13.8 gm/dL (11.4-16.0); Lymphocytes # (A) 1.2 k/uL (1.0-4.8); Lymphocytes % (A) 26 %; MCH 33.9 pg (25.0-35.0); MCHC 37.2 g/dL (31.0-37.0); Mean Platelet Volume 6.2; Monocytes # (A) 0.2 k/uL (0-1.0); Monocytes % (A) 4 %; Neutrophils % (A) 66 %; Platelet Count 237 k/uL (150-450); RBC 4.06 m/uL (3.80-5.40); RDW 13.7 % (11.5-15.5); WBC 4.6 k/uL (3.8-10.6)
[2020-12-23 03:04] LABS: African American GFR (CKD) 70.4 (60.0-200.0); Albumin 4.8 g/dL (3.80-4.90); Albumin/Globulin Ratio 2.53 (1.60-3.17); Anion Gap 12.2 mmol/L (4.00-12.00); Calcium 9.6 mg/dL (8.7-10.3); Carbon Dioxide 21.8 mmol/L (21.6-31.8); Globulin 1.9 g/dL (1.6-3.3); Non-African American GFR(CKD) 60.8 (60.0-200.0); Potassium 3.8 mmol/L (3.5-5.5); Total Bilirubin 0.5 mg/dL (0.3-1.2); Total Protein 6.7 g/dL (6.2-8.2)
== END | disposition home or self-care (01) ==
LOC: LABMAIN 14:14
PROVIDERS: ATTEND Internal Medicine
DX: C34.11 Malignant neoplasm of upper lobe, right bronchus or lung (principal)
CPT/HCPCS: 36415; 80053; 85025

== ENCOUNTER → 2020-12-24 | Outpatient (CLI) | payer MEDICAID ==
--- NOTE | 2020-12-27 07:47 | PE ---
EXAMINATION TYPE: PET CT fusion skull to thigh DATE OF EXAM: 12/24/2020 COMPARISON: Prior PET/CT June 18, 2020 and older studies. HISTORY: Right lung cancer diagnosed biopsy September 2019 with history of radiation treatment TECHNIQUE: Following the intravenous administration of 12.05 mCi of F-18 FDG, whole body images are performed from the skull base to the midthigh. Images are reviewed on the computer in the coronal, a xial, and sagittal planes. Reconstructed rotating images are created on independent workstation and reviewed on the computer. A localization and attenuation correction CT is performed in conjunction with the PET scan. Blood glucose level equals 120 SCAN: Subsequent Scan FINDINGS: SKULL BASE AND NECK: No new areas of abnormal hypermetabolic uptake. CHEST, MEDIASTINUM, AND HILAR REGION: Background mild to moderate underlying emphysematous change is redemonstrated. Worsening lateral inferior right upper lobe nodule or nodular density current study now measuring 10 x 7 mm with adjacent smaller nodularity image 81. There is additional 10 mm inferior nodular consolid ation extension axial Image 84. All areas remain ametabolic with max SUV less than 2.5. There is however new suspicious 9 mm mildly hypermetabolic right middle lobe nodule axial image 107, max SUV 2.76. Abnormal subcarinal hypermetabolic lymph node measuring 1.4 x 0.7 cm axial image 89, max SUV is 6.02. Additional abnormal hypermetabolic subcentimeter right hilar focus axial image 97, max SUV is 3.2. No new areas of abnormal hypermetabolic uptake including right infrahilar region at the area of prior adenopathy. No additional areas of abnormal hypermetabolic uptake. ABDOMEN AND PELVIS: No new adrenal masses. Normal excretion. No new areas of abnormal hypermetabolic uptake. OSSEOUS STRUCTURES: No new areas of abnormal hypermetabolic uptake. OTHER CT: Moderate to severe calcified plaque right greater than left carotid bulb is redemonstrated. Coronary artery calcification redemonstrated . Stable small size hiatal hernia. Small calcified splenic artery aneurysms again seen. Moderate-sized fat-containing umbilical hernia r edemonstrated. Uterus surgically absent or markedly atrophic. Liver slightly hypodense relative to sp diane consistent with mild diffuse fatty infiltration. Aorto iliac stent graft redemonstrated. IMPRESSION: Interval thoracic neoplastic progression as detailed above.
== END | disposition home or self-care (01) ==
LOC: RADPETMAIN 08:40
PROVIDERS: ATTEND Internal Medicine
DX: C34.11 Malignant neoplasm of upper lobe, right bronchus or lung (principal); C79.89 Secondary malignant neoplasm of other specified sites
CPT/HCPCS: 78815; A9552

== ENCOUNTER → 2021-01-11 | Outpatient (CLI) | payer MEDICAID | END | disposition home or self-care (01) | LOC: LABMAIN 15:38 | PROVIDERS: ATTEND Student in an Organized Health Care Education/Training Program | DX: Z53.9 Procedure and treatment not carried out, unspecified reason (principal) ==

== ENCOUNTER 2021-01-13 09:50 | Emergency (ER) | payer MEDICAID ==
[2021-01-13 09:56] VITALS: RESP 18
[2021-01-13] MEDS ORDERED: BAMLANIVIMAB (EUA) 700 MG, ETESEVIMAB (EUA) 1,400 MG in SODIUM CHLORIDE 0.9% 50 ML IVPB ONE (10:50)
[2021-01-13] MEDS ORDERED: SODIUM CHLORIDE 0.9% 50 ML IVPB ONE (11:00)
--- NOTE | 2021-01-13 11:19 | XR ---
EXAMINATION TYPE: XR chest 1V portable DATE OF EXAM: 01/13/2021 Comparison: 05/04/2015 and PETCT 12/24/2020 Clinical History: 61-year-old female Short of breath Findings: Heart normal size. Hyperinflation with mild interstitial prominence. Some focal patchy opacity at the periphery of the right upper lobe and subtle nodular density at the right lower lung. Otherwise, no consolidation or pleural effusion is seen. Impression: COPD with moderate emphysema and known neoplasm periphery of the right upper lobe and right lower william g. Otherwise, no definite acute process.
--- NOTE | 2021-01-13 11:30 | ED ---
General Adult HPI - General Chief complaint: Upper Respiratory Infection Stated complaint: covid+/needs infusion Time Seen by Provider: 01/13/21 09:50 Source: patient, RN notes reviewed, old records reviewed Mode of arrival: ambulatory Limitations: no limitations - History of Present Illness Initial comments: This is a 61-year-old female with past medical history significant for COPD. Patient comes in today because she doesn't positive for COVID she wants monoclonal antibodies. Patient states she feels fatigued and occasionally short of breath. Patient states she started having symptoms on January 11 and Positive results on the . - Related Data Home Medications Medication Instructions Recorded Confirmed Atorvastatin [Lipitor] 20 mg PO HS 12/24/18 05/20/20 Lisinopril [Zestril] 10 mg PO DAILY 12/24/18 05/20/20 Montelukast [Singulair] 10 mg PO DAILY PRN 12/24/18 05/20/20 valACYclovir [Valtrex] 500 mg PO DAILY PRN 12/24/18 05/20/20 Previous Rx's Medication Instructions Recorded Ketorolac [Toradol] 10 mg PO Q8HR PRN #10 tab 05/22/20 Allergies Allergy/AdvReac Type Severity Reaction Status Date / Time morphine AdvReac Severe HULLUCINATI Verified 01/13/21 09:52 ON shellfish derived [Shellfish] AdvReac Swelling Verified 01/13/21 09:52 MEDICAL TAPE AdvReac Rash/Hives Uncoded 05/20/20 12:43 Review of Systems ROS Statement: Those systems with pertinent positive or pertinent negative responses have been documented in the HPI. ROS Other: All systems not noted in ROS Statement are negative. Past Medical History Past Medical History: Cancer, COPD, Hypertension Additional Past Medical History / Comment(s): Broken Pelvis. lung CA History of Any Multi-Drug Resistant Organisms: None Reported Past Surgical History: Hysterectomy, Tonsillectomy Additional Past Surgical History / Comment(s): Aortic Bifemeral Bypass March 13, 2017 Past Psychological History: No Psychological Hx Reported Smoking Status: Former smoker Past Alcohol Use History: Occasional Past Drug Use History: None Reported General Exam - General Exam Comments Initial Comments: GENERAL: Patient is well-developed and well-nourished. Patient is nontoxic and well- hydrated and is in mild distress. ENT: Neck is soft and supple. No significant lymphadenopathy is noted. Oropharynx is clear. Moist mucous membranes. Neck has full range of motion without eliciting any pain. EYES: The sclera were anicteric and conjunctiva were pink and moist. Extraocular movements were intact and pupils were equal round and reactive to light. Eyelids were unremarkable. PULMONARY: Unlabored respirations. Good breath sounds bilaterally. No audible rales rhonchi or wheezing was noted. CARDIOVASCULAR: There is a regular rate and rhythm without any murmurs gallops or rubs. ABDOMEN: Soft and nontender with normal bowel sounds. SKIN: Skin is clear with no lesions or rashes and otherwise unremarkable. NEUROLOGIC: Patient is alert and oriented x3. Cranial nerves II through XII are grossly intact. Motor and sensory are also intact. Normal speech, volume and content. Symmetrical smile. MUSCULOSKELETAL: Normal extremities with adequate strength and full range of motion. LYMPHATICS: No significant lymphadenopathy is noted PSYCHIATRIC: Normal psychiatric evaluation. Limitations: no limitations Course Vital Signs 01/13/21 01/13/21 09:53 11:09 Temperature 98.1 F Pulse Rate 106 H 86 Respiratory 18 18 Rate Blood Pressure 120/76 95/63 O2 Sat by Pulse 99 95 Oximetry Disposition Clinical Impression: COVID-19 Disposition: HOME SELF-CARE Instructions (If sedation given, give patient instructions): Coronavirus Disease 2019 (COVID-19) Is patient prescribed a controlled substance at d/c from ED?: No Referrals: Malena Bloom MD [Primary Care Provider] - 1-2 days Time of Disposition: 11:30
[2021-01-13 12:54] VITALS: BP 111/69; PULSE 85; TEMP 97.8
== END 2021-01-13 12:51 | disposition home or self-care (01) ==
LOC: EC 09:50
DX: U07.1 COVID-19 (principal); J44.9 Chronic obstructive pulmonary disease, unspecified; I10 Essential (primary) hypertension; Z79.52 Long term (current) use of systemic steroids; Z79.899 Other long term (current) drug therapy; Z88.5 Allergy status to narcotic agent; Z91.013 Allergy to seafood; Z91.048 Other nonmedicinal substance allergy status; Z85.118 Personal history of other malignant neoplasm of bronchus and lung; Z87.891 Personal history of nicotine dependence; Z90.89 Acquired absence of other organs; Z90.710 Acquired absence of both cervix and uterus
CPT/HCPCS: 71045; 99285; 96365; Q0245

== ENCOUNTER → 2021-01-27 | Outpatient (CLI) | payer MEDICAID ==
--- NOTE | 2021-01-30 11:20 | MM ---
Reason for exam: screening (asymptomatic). Last mammogram was performed 3 years and 5 months ago. History: Patient is postmenopausal and has history of other cancer at age 59. Family history of premenopausal breast cancer in mother at age 48 and breast cancer in paternal aunt. Benign right US cyst aspiration of the right breast, July 19, 2008. Took estrogen for 2 years 3 months. Physical Findings: A clinical breast exam by your physician is recommended on an annual basis and results should be correlated with mammographic findings. MG 3D Screening Mammo W/Cad Bilateral CC and MLO view(s) were taken. Prior study comparison: September 02, 2017, bilateral MG 3d screening mammo w/cad. July 21, 2013, bilateral digital screening mammo w/CAD. The breast tissue is heterogeneously dense. This may lower the sensitivity of mammography. There is chronic nodularity bilaterally. There is no dominant lesion. No significant changes when compared with prior studies. ASSESSMENT: Benign, BI-RAD 2 RECOMMENDATION: Routine screening mammogram of both breasts in 1 year.
== END | disposition home or self-care (01) ==
LOC: RADMAMWWP 11:35
PROVIDERS: ATTEND Family Medicine
DX: Z12.31 Encounter for screening mammogram for malignant neoplasm of breast (principal); Z78.0 Asymptomatic menopausal state; Z80.3 Family history of malignant neoplasm of breast
CPT/HCPCS: 77063; 77067

== ENCOUNTER → 2021-02-15 | Outpatient (CLI) | payer MEDICAID ==
[2021-02-15 11:22] LABS: Basophils # (A) 0.1 k/uL (0-0.2); Basophils % (A) 1 %; Eosinophils # (A) 0.2 k/uL (0-0.7); Eosinophils % (A) 3 %; HCT 41.7 % (34.0-46.0); HGB 14.5 gm/dL (11.4-16.0); Lymphocytes # (A) 1.5 k/uL (1.0-4.8); Lymphocytes % (A) 29 %; MCH 31.4 pg (25.0-35.0); MCHC 34.7 g/dL (31.0-37.0); MCV 90.5 fL (80.0-100.0); Mean Platelet Volume 6.4; Monocytes # (A) 0.3 k/uL (0-1.0); Monocytes % (A) 5 %; Neutrophils # (A) 3.1 k/uL (1.3-7.7); Neutrophils % (A) 60 %; Platelet Count 243 k/uL (150-450); RBC 4.61 m/uL (3.80-5.40); RDW 13.4 % (11.5-15.5); WBC 5.1 k/uL (3.8-10.6)
[2021-02-15 11:30] LABS: ALT 39 U/L (4-34); AST 31 U/L (14-36); African American GFR (CKD) 89 (>60 ml/min/1.73 sqM); Albumin 4.8 g/dL (3.5-5.0); Albumin/Globulin Ratio 1.6; Alkaline Phosphatase 83 U/L (38-126); Anion Gap 11 mmol/L; Blood Urea Nitrogen 19 mg/dL (7-17); Calcium 9.8 mg/dL (8.4-10.2); Carbon Dioxide 27 mmol/L (22-30); Chloride 105 mmol/L (98-107); Glucose 147 mg/dL (74-99); Non-African American GFR(CKD) 77 (>60 ml/min/1.73 sqM); Potassium 4.1 mmol/L (3.5-5.1); Sodium 143 mmol/L (137-145); Total Bilirubin 0.6 mg/dL (0.2-1.3); Total Protein 7.8 g/dL (6.3-8.2)
== END | disposition home or self-care (01) ==
LOC: LABMAIN 10:50
PROVIDERS: ATTEND Internal Medicine
DX: C34.11 Malignant neoplasm of upper lobe, right bronchus or lung (principal)
CPT/HCPCS: 36415; 80053; 85025

== ENCOUNTER → 2021-03-01 | Outpatient (CLI) | payer MEDICAID ==
[2021-03-01 10:35] LABS: Basophils # (A) 0.1 k/uL (0-0.2); Basophils % (A) 2 %; Eosinophils # (A) 0.1 k/uL (0-0.7); Eosinophils % (A) 2 %; HCT 37.6 % (34.0-46.0); HGB 13.4 gm/dL (11.4-16.0); Lymphocytes # (A) 1.5 k/uL (1.0-4.8); Lymphocytes % (A) 43 %; MCH 31.5 pg (25.0-35.0); MCHC 35.6 g/dL (31.0-37.0); MCV 88.5 fL (80.0-100.0); Mean Platelet Volume 6.4; Monocytes # (A) 0.1 k/uL (0-1.0); Monocytes % (A) 4 %; Neutrophils # (A) 1.7 k/uL (1.3-7.7); Neutrophils % (A) 48 %; Platelet Count 247 k/uL (150-450); RBC 4.24 m/uL (3.80-5.40); RDW 14.1 % (11.5-15.5); WBC 3.6 k/uL (3.8-10.6)
[2021-03-01 11:02] LABS: ALT 32 U/L (4-34); AST 27 U/L (14-36); African American GFR (CKD) 73 (>60 ml/min/1.73 sqM); Albumin 4.7 g/dL (3.5-5.0); Albumin/Globulin Ratio 1.7; Alkaline Phosphatase 69 U/L (38-126); Anion Gap 10 mmol/L; Blood Urea Nitrogen 23 mg/dL (7-17); Calcium 9.6 mg/dL (8.4-10.2); Carbon Dioxide 22 mmol/L (22-30); Chloride 106 mmol/L (98-107); Globulin 2.8 g/dL; Glucose 109 mg/dL (74-99); Non-African American GFR(CKD) 63 (>60 ml/min/1.73 sqM); Potassium 5.1 mmol/L (3.5-5.1); Sodium 138 mmol/L (137-145); Total Bilirubin 0.8 mg/dL (0.2-1.3); Total Protein 7.5 g/dL (6.3-8.2)
== END | disposition home or self-care (01) ==
LOC: LABMAIN 09:56
PROVIDERS: ATTEND Internal Medicine
DX: C34.11 Malignant neoplasm of upper lobe, right bronchus or lung (principal)
CPT/HCPCS: 36415; 80053; 85025

== ENCOUNTER → 2021-03-07 | Outpatient (CLI) | payer MEDICAID ==
[2021-03-07 21:02] LABS: ALT 31 U/L (4-34); AST 26 U/L (14-36); African American GFR (CKD) 80 (>60 ml/min/1.73 sqM); Albumin 4.7 g/dL (3.5-5.0); Albumin/Globulin Ratio 1.6; Alkaline Phosphatase 67 U/L (38-126); Anion Gap 8 mmol/L; Blood Urea Nitrogen 30 mg/dL (7-17); Calcium 10.1 mg/dL (8.4-10.2); Carbon Dioxide 26 mmol/L (22-30); Chloride 106 mmol/L (98-107); Globulin 2.9 g/dL; Glucose 111 mg/dL (74-99); Non-African American GFR(CKD) 70 (>60 ml/min/1.73 sqM); Potassium 5.2 mmol/L (3.5-5.1); Sodium 140 mmol/L (137-145); Total Bilirubin 0.5 mg/dL (0.2-1.3); Total Protein 7.6 g/dL (6.3-8.2)
[2021-03-07 21:07] LABS: Basophils # (A) 0.1 k/uL (0-0.2); Basophils % (A) 2 %; Eosinophils # (A) 0.1 k/uL (0-0.7); Eosinophils % (A) 2 %; HGB 12.5 gm/dL (11.4-16.0); Lymphocytes # (A) 1.9 k/uL (1.0-4.8); Lymphocytes % (A) 53 %; MCH 32.1 pg (25.0-35.0); MCHC 35.7 g/dL (31.0-37.0); MCV 90.1 fL (80.0-100.0); Mean Platelet Volume 6.5; Monocytes # (A) 0.1 k/uL (0-1.0); Monocytes % (A) 4 %; Neutrophils # (A) 1.3 k/uL (1.3-7.7); Neutrophils % (A) 36 %; Platelet Count 210 k/uL (150-450); RBC 3.89 m/uL (3.80-5.40); WBC 3.6 k/uL (3.8-10.6)
== END | disposition home or self-care (01) ==
LOC: LABMAIN 20:31
PROVIDERS: ATTEND Internal Medicine
DX: C34.11 Malignant neoplasm of upper lobe, right bronchus or lung (principal)
CPT/HCPCS: 36415; 80053; 85025

== ENCOUNTER → 2021-03-14 | Outpatient (CLI) | payer MEDICAID | END | disposition home or self-care (01) | LOC: LABMAIN 18:01 | PROVIDERS: ATTEND Internal Medicine | DX: C34.11 Malignant neoplasm of upper lobe, right bronchus or lung (principal); Z53.9 Procedure and treatment not carried out, unspecified reason ==

== ENCOUNTER → 2021-03-22 | Outpatient (CLI) | payer MEDICAID ==
[2021-03-22 11:21] LABS: Anisocytosis Slight; HCT 34.2 % (34.0-46.0); HGB 12.5 gm/dL (11.4-16.0); MCH 33.3 pg (25.0-35.0); MCHC 36.4 g/dL (31.0-37.0); MCV 91.4 fL (80.0-100.0); Mean Platelet Volume 7.2; Platelet Count 125 k/uL (150-450); RBC 3.75 m/uL (3.80-5.40); RDW 16.7 % (11.5-15.5); WBC 2.2 k/uL (3.8-10.6)
[2021-03-22 11:30] LABS: ALT 30 U/L (4-34); AST 24 U/L (14-36); African American GFR (CKD) >90 (>60 ml/min/1.73 sqM); Albumin 4.5 g/dL (3.5-5.0); Albumin/Globulin Ratio 1.7; Alkaline Phosphatase 60 U/L (38-126); Anion Gap 8 mmol/L; Blood Urea Nitrogen 23 mg/dL (7-17); Calcium 9.4 mg/dL (8.4-10.2); Carbon Dioxide 24 mmol/L (22-30); Chloride 109 mmol/L (98-107); Globulin 2.7 g/dL; Glucose 212 mg/dL (74-99); Non-African American GFR(CKD) 83 (>60 ml/min/1.73 sqM); Potassium 4.3 mmol/L (3.5-5.1); Sodium 141 mmol/L (137-145); Total Bilirubin 0.7 mg/dL (0.2-1.3); Total Protein 7.2 g/dL (6.3-8.2)
[2021-03-22 12:21] LABS: Basophils # (M) 0.02 k/uL (0-0.2); Eosinophils # (M) 0.07 k/uL (0-0.7); Monocytes # (M) 0.02 k/uL (0-1.0); Neutrophils # (M) 0.99 k/uL (1.3-7.7); Neutrophils % (M) 45 %; Nucleated Red Blood Cells 0 /100 WBC (0-0); Total Cells Counted 100
== END | disposition home or self-care (01) ==
LOC: LABMAIN 10:54
PROVIDERS: ATTEND Internal Medicine
DX: C34.11 Malignant neoplasm of upper lobe, right bronchus or lung (principal)
CPT/HCPCS: 36415; 80053; 85025

== ENCOUNTER → 2021-03-31 | Outpatient (CLI) | payer MEDICAID ==
--- NOTE | 2021-04-04 12:04 | PE ---
EXAMINATION TYPE: PET CT fusion skull to thigh DATE OF EXAM: 03/31/2021 CLINICAL HISTORY: 61-year-old female restaging left-sided stage III non-small cell lung cancer. Statu s post chemoradiation. TECHNIQUE: Following the intravenous administration of 11.54 mCi of F-18 FDG, whole body images are performed from the skull base to the midthigh. Images are reviewed on the computer in the coronal, axial, and sagittal planes. Reconstructed rotating images are created on independent workstation and reviewed on the computer. A localization and attenuation correction CT is performed in conjunction with the PET scan. Glucose level: 130 mg/dL Injection site: Right AC COMPARISON: PET/CT 12/24/2020 and 06/18/2020. FINDINGS: PET: New focal area of increased uptake within the right anterior arch of C3 shows no discrete CT correlat e. Max SUV 5.7. Otherwise, physiologic FDG uptake in the neck. Redemonstrated small subcarinal lymph node currently measuring 7 mm thick, not significantly changed from prior, max SUV 7.1 versus 6.0, previously. Redemonstrated subcentimeter focus of right hilar uptake, max SUV 3.2 versus 3.2, previously. Right middle lobe nodule shows less fullness compared to prior exam measuring 8 mm versus 9 mm, previ ously, maximum SUV 2.6 versus 2.8, previously. Redemonstrated patchy peripheral opacity in the right upper lobe now with an area of internal cavitat ion, probable infectious etiology. No significant uptake here. Otherwise, physiologic FDG uptake within the chest. Average liver SUV 2.2. Small subtle focus of uptake now noted within the segment 5 inferior right liver lobe, max SUV 3.7. Small new focus of borderline moderate hypermetabolism at the left posterior elements of L2 and L3, m ax SUV 3.6, without CT correlate. Otherwise, physiologic FDG uptake within the abdomen and pelvis. ATTENUATION CORRECTION CT: Visualized paranasal sinuses and mastoid air cells are clear. Rightward nasal deviation. Atherosclero tic calcifications right greater than left carotid bifurcations. No cervical lymph adenopathy. Heart limits of normal in size without pericardial effusion. Mild LAD coronary artery calcifications are present. Mild arthritic arch calcifications. Variant direct takeoff of the left vertebral artery directly from the aortic arch. Stable small 8 mm lower left paraesophageal lymph node. No thoracic ly mphadenopathy by CT size criteria. See above for areas of hypermetabolism. [id number] centrilo bular emphysema. No new consolidation or pleural effusion. Suspect underlying mild fatty infiltration of liver. Small hiatal hernia. Stable 1.3 cm partially gerardo cified splenic artery aneurysm. A second smaller splenic artery aneurysm measures 1.1 cm and shows eg gshell calcifications. No dilated small bowel, free fluid, or free air. There are no biiliac bypass g rafts. No mesenteric or retroperitoneal lymphadenopathy. Tiny fatty umbilical hernia. Mild stool arvind en. No paraspinal inflammatory change. Uterus surgically absent. Neither ovary clearly identified. No abnormal fluid collection in the pelvi s or pelvic lymphadenopathy. Bones: No osseous destructive process seen. IMPRESSION: 1. Relatively stable metabolic disease associated with a small subcarinal node, subcentimeter focus a t the right hilum, and a right middle lobe nodule. 2. However, a subtle new focus within segment 5 of the right liver lobe is new. A small early hepatic metastasis is not excluded. 3. Additionally, a new focus within the right anterior arch of the C3 vertebral body and small foci a long the left posterior elements of L2 and L3 are also new and suspicious for early osseous involveme nt. 4. The previous right upper lobe infiltrate now shows an internal area of cavitation, likely infectio us etiology. Clinically correlate.
== END | disposition home or self-care (01) ==
LOC: RADPETMAIN 10:33
PROVIDERS: ATTEND Internal Medicine
DX: C34.11 Malignant neoplasm of upper lobe, right bronchus or lung (principal); R91.8 Other nonspecific abnormal finding of lung field
CPT/HCPCS: 78815; A9552

== ENCOUNTER → 2021-04-03 | Outpatient (CLI) | payer MEDICAID ==
[2021-04-03 07:29] LABS: Anisocytosis Slight; Basophils # (A) 0.1 k/uL (0-0.2); Basophils % (A) 1 %; Eosinophils % (A) 1 %; HCT 37.3 % (34.0-46.0); HGB 13.1 gm/dL (11.4-16.0); Hyperchromasia Slight; Lymphocytes # (A) 1.1 k/uL (1.0-4.8); Lymphocytes % (A) 35 %; MCHC 35.2 g/dL (31.0-37.0); MCV 93.8 fL (80.0-100.0); Macrocytosis Slight; Mean Platelet Volume 6.2; Monocytes # (A) 0.2 k/uL (0-1.0); Monocytes % (A) 7 %; Neutrophils # (A) 1.7 k/uL (1.3-7.7); Neutrophils % (A) 51 %; Poikilocytosis Slight; RBC 3.98 m/uL (3.80-5.40); RDW 19.9 % (11.5-15.5); WBC 3.2 k/uL (3.8-10.6)
[2021-04-03 07:30] LABS: Platelet Count 283 k/uL (150-450)
[2021-04-03 07:36] LABS: ALT 34 U/L (4-34); AST 30 U/L (14-36); African American GFR (CKD) >90 (>60 ml/min/1.73 sqM); Albumin/Globulin Ratio 1.7; Alkaline Phosphatase 91 U/L (38-126); Anion Gap 12 mmol/L; Blood Urea Nitrogen 16 mg/dL (7-17); Carbon Dioxide 24 mmol/L (22-30); Chloride 101 mmol/L (98-107); Glucose 188 mg/dL (74-99); Non-African American GFR(CKD) >90 (>60 ml/min/1.73 sqM); Potassium 4.3 mmol/L (3.5-5.1); Sodium 137 mmol/L (137-145); Total Bilirubin 0.9 mg/dL (0.2-1.3)
== END | disposition home or self-care (01) ==
LOC: LABMAIN 06:59
PROVIDERS: ATTEND Internal Medicine
DX: C34.11 Malignant neoplasm of upper lobe, right bronchus or lung (principal)
CPT/HCPCS: 36415; 80053; 85025

== ENCOUNTER → 2021-04-14 | Outpatient (CLI) | payer MEDICAID | END | disposition home or self-care (01) ==

== ENCOUNTER → 2021-04-18 | Outpatient (CLI) | payer MEDICAID ==
--- NOTE | 2021-04-19 17:34 | MR ---
EXAMINATION TYPE: MR liver wo/w con DATE OF EXAM: 04/18/2021 COMPARISON: PET/CT 03/31/2021 HISTORY: Malignant neoplasm lung, spot on liver TECHNIQUE: Multiplanar, multisequence images of the abdomen were obtained without and with IV contras t, utilizing liver mass protocol. 9 mL intravenous Gadavist contrast administered. FINDINGS: Lung bases: No pleural or pericardial effusion. Liver: There is diffuse signal loss on out of phase imaging demonstrating fatty liver disease. There is a 0.9 x 1.1 x 0.8 cm mass of segment 5 of the liver measuring 1.1 x 0.9 x 0.8 cm, which correspond s with area of metabolic activity on 03/31/[address] comparison. The mass is T1 hypointense, T2 hype rintense, restricting, homogenously arterially enhancing, peripherally enhancing on portal venous pha se, and isoenhancing on delayed imaging. No evidence of washout. No evidence of macroscopic or micros copic intralesional fat. Biliary: Normal. Pancreas: Normal. Spleen: Normal. Adrenals: Normal. Kidneys: No hydronephrosis bilaterally. Subcentimeter benign T2 hyperintense simple left renal cyst. Bowel: Small hiatal hernia. Visualized bowel loops demonstrate no evidence of obstruction. Lymph nodes: No lymphadenopathy. Peritoneum: No ascites. Vasculature: Infrarenal abdominal aortic bypass graft. Hepatic veins, portal vein, inferior mesenteri c vein, and splenic vein are patent. Osseous structures: Asymmetric enhancement of the left pedicle of L2 (901:183). Subcentimeter focus o f enhancement at the anterior L2 vertebral body (901:158). Asymmetric enhancement of the posterior el ements of L3 on the left (901:113). IMPRESSION: 1. Segment 5 liver lesion measures 1.1 cm with arterial enhancement and restricted diffusion. Given n ew appearance on 03/31/[address] comparison, primary differential consideration given to hypervascul ar metastatic disease. Other considerations include less likely HCC and flash fill hemangioma. Lesion would be amenable to image guided biopsy of clinically indicated. 2. Areas of enhancement of L2 and L3 correspond with hypermetabolic activity demonstrated on PET CT comparison, and may represent metastatic disease. 3. Fatty liver.
== END | disposition home or self-care (01) ==
LOC: RADMRIMAIN 10:25
PROVIDERS: ATTEND Radiology Radiation Oncology
DX: K76.89 Other specified diseases of liver (principal); K76.0 Fatty (change of) liver, not elsewhere classified; K44.9 Diaphragmatic hernia without obstruction or gangrene; N28.1 Cyst of kidney, acquired
CPT/HCPCS: 74183; A9585

== ENCOUNTER → 2021-05-29 | Outpatient (CLI) | payer MEDICAID | END | disposition home or self-care (01) | LOC: LABWHC1 14:55 | PROVIDERS: ATTEND Internal Medicine | DX: C34.11 Malignant neoplasm of upper lobe, right bronchus or lung (principal) | CPT/HCPCS: 36415 ==

== ENCOUNTER 2021-06-18 11:28 | Emergency (ER) | payer MEDICAID ==
[2021-06-18] MEDS ORDERED: KETOROLAC 15 MG/ML 1 ML VIAL IVP STA (11:45)
[2021-06-18] MEDS ORDERED: HYDROmorphone 0.5 MG/0.5 ML SYRINGE IVP STA (13:03)
[2021-06-18] MEDS ORDERED: ONDANSETRON 4 MG/2 ML VIAL IVP STA (13:03)
--- NOTE | 2021-06-18 13:33 | CT ---
EXAMINATION TYPE: CT brain cspine wo con DATE OF EXAM: 06/18/2021 COMPARISON: Correlation made with PET scan from 03/31/2021 and MRI brain from 04/14/2021 HISTORY: Pain, Neck CA CT DLP: 1378 mGycm Automated exposure control for dose reduction was used. TECHNIQUE: CT scan of the head and cervical spine are performed without contrast. FINDINGS: There is no acute intracranial hemorrhage, mass effect, or midline shift identified. The ventricles and sulci are within normal limits in size. The globes are intact and the visualized sin uses are clear. There is areas of low-attenuation in the periventricular deep white matter and the roth radiata as seen on MRI representing chronic small vessel ischemic disease. Cervical spine is visualized in its entirety from C1 through upper thoracic levels and demonstrates s atisfactory alignment without evidence of acute fracture or dislocation. Prevertebral soft tissue ap pears within normal limits. The C1-C2 articulation is unremarkable. There is lytic process seen in the transverse process of C2 and right lateral aspect of C2 vertebral body. There is some degree of extension into C3 vertebral body. The findings likely represent maligna nt process. It likely involves the exiting nerve roots at C2-3 level. Involvement of the spinal cord on this examination is not evaluated. IMPRESSION: 1. There is no acute fracture or dislocation evident in the cervical spine. 2. No acute intracranial hemorrhage, mass effect, or midline shift is seen. 3. PET positive area in the cervical spine is more evident on this examination. The lytic process in C2-3 area likely represents metastatic lesion.
[2021-06-18] MEDS ORDERED: ACET/COD 300 MG/30 MG STARTER PACK 6 TAB BTL PO STA (13:51)
--- NOTE | 2021-06-18 13:52 | ED ---
Neck Injury/Pain HPI - General Chief Complaint: Neck Pain/Injury Stated Complaint: head & neck pain Time Seen by Provider: 06/18/21 11:34 Source: RN notes reviewed Mode of arrival: ambulatory Limitations: no limitations - History of Present Illness Initial Comments: This a 61-year-old female presents emergency Department chief complaint of head and neck pain. Patient states she is getting some stuff on her vehicle when the tailgate started to close on her head. She's had some right-sided neck discomfort. 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 Patient states she is not taking but there is no focal weakness no complaints of dizziness blurred vision. Patient states she's been taken Tylenol and Motrin at home. - Related Data Home Medications Medication Instructions Recorded Confirmed Atorvastatin [Lipitor] 20 mg PO HS 12/24/18 05/20/20 Lisinopril [Zestril] 10 mg PO DAILY 12/24/18 05/20/20 Montelukast [Singulair] 10 mg PO DAILY PRN 12/24/18 05/20/20 valACYclovir [Valtrex] 500 mg PO DAILY PRN 12/24/18 05/20/20 Previous Rx's Medication Instructions Recorded Ketorolac [Toradol] 10 mg PO Q8HR PRN #10 tab 05/22/20 Cyclobenzaprine [Flexeril] 5 mg PO TID PRN #15 tablet 06/18/21 Allergies Allergy/AdvReac Type Severity Reaction Status Date / Time morphine AdvReac Severe HULLUCINATI Verified 06/18/21 11:32 ON shellfish derived [Shellfish] AdvReac Swelling Verified 06/18/21 11:32 MEDICAL TAPE AdvReac Rash/Hives Uncoded 06/18/21 11:32 Review of Systems ROS Statement: Those systems with pertinent positive or pertinent negative responses have been documented in the HPI. ROS Other: All systems not noted in ROS Statement are negative. Past Medical History Past Medical History: Cancer, COPD, Hypertension Additional Past Medical History / Comment(s): Broken Pelvis. lung CA History of Any Multi-Drug Resistant Organisms: None Reported Past Surgical History: Hysterectomy, Tonsillectomy Additional Past Surgical History / Comment(s): Aortic Bifemeral Bypass March 13, 2017 Past Psychological History: No Psychological Hx Reported Smoking Status: Former smoker Past Alcohol Use History: Occasional Past Drug Use History: None Reported General Exam Limitations: no limitations General appearance: alert, in no apparent distress Head exam: Present: atraumatic, normocephalic, normal inspection Eye exam: Present: normal appearance, PERRL, EOMI. Absent: scleral icterus, conjunctival injection, periorbital swelling ENT exam: Present: normal exam, normal oropharynx, mucous membranes moist Neck exam: Present: normal inspection, tenderness, full ROM. Absent: meningismus, lymphadenopathy Respiratory exam: Present: normal lung sounds bilaterally. Absent: respiratory distress, wheezes, rales, rhonchi, stridor Cardiovascular Exam: Present: regular rate, normal rhythm, normal heart sounds. Absent: systolic murmur, diastolic murmur, rubs, gallop, clicks Course Vital Signs 06/18/21 11:29 Temperature 98.7 F Pulse Rate 95 Respiratory 19 Rate Blood Pressure 189/117 O2 Sat by Pulse 97 Oximetry Medical Decision Making - Medical Decision Making CT is unremarkable other than noted metastasis area which was fine PET scan. Patient is stable for discharge pain is improved. Disposition Clinical Impression: Strain of neck muscle, Neck pain Disposition: HOME SELF-CARE Condition: Stable Instructions (If sedation given, give patient instructions): Cervical Strain (ED) Additional Instructions: Please return to the Emergency Department if symptoms worsen or any other concerns. Prescriptions: Cyclobenzaprine [Flexeril] 5 mg PO TID PRN #15 tablet PRN Reason: Muscle Spasm Is patient prescribed a controlled substance at d/c from ED?: No Referrals: Shira Farmer MD [Primary Care Provider] - 1-2 days Time of Disposition: 13:52
[2021-06-18 14:21] VITALS: BP 166/97; PULSE 75; RESP 16; TEMP 98.2
== END 2021-06-18 14:36 | disposition home or self-care (01) ==
LOC: EC 11:28
DX: S16.1XXA Strain of muscle, fascia and tendon at neck level, initial encounter (principal); R51.9 Headache, unspecified; J44.9 Chronic obstructive pulmonary disease, unspecified; I10 Essential (primary) hypertension; Z87.891 Personal history of nicotine dependence; Z88.5 Allergy status to narcotic agent; Z91.09 Other allergy status, other than to drugs and biological substances; Z91.013 Allergy to seafood; Z79.899 Other long term (current) drug therapy; W22.09XA Striking against other stationary object, initial encounter; Y93.89 Activity, other specified
CPT/HCPCS: 72125; 70450; 99284; 96374; 96375; J2405; J1885; J1170

== ENCOUNTER → 2021-06-23 | Outpatient (CLI) | payer MEDICAID ==
--- NOTE | 2021-06-27 13:01 | PE ---
EXAMINATION TYPE: PET CT fusion skull to thigh DATE OF EXAM: 06/23/2021 COMPARISON: Prior PET/CT March 31, 2021 and older studies HISTORY: Right lung cancer diagnosed September 2019 with history of radiation treatment to cervical sp ine ended June 22, 2021 and chemotherapy under April 2021. TECHNIQUE: Following the intravenous administration of 11.86 mCi of F-18 FDG, whole body images are performed from the skull base to the midthigh. Images are reviewed on the computer in the coronal, a xial, and sagittal planes. Reconstructed rotating images are created on independent workstation and reviewed on the computer. A localization and attenuation correction CT is performed in conjunction with the PET scan. Blood glucose level equals 116 SCAN: Subsequent Scan FINDINGS: SKULL BASE AND NECK: No new areas of abnormal hypermetabolic uptake. CHEST, MEDIASTINUM, AND HILAR REGION: Background mild to moderate underlying emphysematous change is redemonstrated. Stable right mid to lower lung 12 x 7 mm nodule axial image 106 now mildly hypermetabolic, max SUV 4. 44. Persistent subcarinal hypermetabolic lymph node measuring approximately 1.1 x 1.1 cm axial image 92, max SUV is 90.85 current study increased from 7.1. Worsening hypermetabolic near 1.5 cm enlarging right hilar focus axial image 100, max SUV is 11.11 on current study. Suspicious subcentimeter hypermetabolic focus right subcarinal level axial image 95 new from most rec ent priors. No additional areas of abnormal hypermetabolic uptake. ABDOMEN AND PELVIS: Liver is diffusely low dense consistent with diffuse fatty infiltration. No new s uspicious hypermetabolic areas throughout the liver approximately 10 distinct lesions without definit milton CT correlate , largest lateral segment left hepatic lobe axial image 122 has max SUV of 25.29. No new hypermetabolic adrenal masses. Normal excretion. No new areas of abnormal hypermetabolic uptak e. Gas prominent rectum. OSSEOUS STRUCTURES: Worsening hypermetabolic osseous metastatic disease. Lesion right iliac bone note d axial image 187. Lesion left sacrum noted axial image [address] correlate. Lesion p osterior elements mid lumbar spine on the left less well seen on this study. There is however new lat eral right lower cervical hypermetabolic focus axial image [address] correlate. There is lytic destructive lesion right anterior C2 level axial image 30, max SUV at this level is 19.41. S ome neural foraminal invasion and extension into right anterolateral spinal canal of the soft tissue component axial image [address]: Moderate to severe calcified plaque right greater than left carotid bulb is redemonstrated. Mild three-vessel Coronary artery calcification redemonstrated . Stable small size hiatal hernia. Small calcified splenic artery aneurysm is again seen. Moderate-sized fat-containing umbilical hernia redemonstrated. Uterus surgically absent or markedly atrophic. Aortobiiliac graft redemonstrated. IMPRESSION: Interval neoplastic progression as detailed above. Worsening osseous metastatic disease i ncluding destructive right C2 lesion encroaching into the anterolateral spinal canal. Thoracic neopla stic progression as detailed above. New hepatic metastatic disease is strongly discussed suspected de spite poor visualization of CT lesions on noncontrast attenuation correction CT.
== END | disposition home or self-care (01) ==
LOC: RADPETMAIN 16:26
PROVIDERS: ATTEND Internal Medicine
DX: C79.51 Secondary malignant neoplasm of bone (principal); C78.7 Secondary malignant neoplasm of liver and intrahepatic bile duct; C34.91 Malignant neoplasm of unspecified part of right bronchus or lung
CPT/HCPCS: 78815; A9552

== ENCOUNTER → 2021-07-03 | Outpatient (CLI) | payer MEDICAID ==
[2021-07-03 10:42] LABS: Basophils % (A) 1 %; Eosinophils # (A) 0.1 k/uL (0-0.7); Eosinophils % (A) 2 %; HCT 39.3 % (34.0-46.0); HGB 13.2 gm/dL (11.4-16.0); Lymphocytes # (A) 0.5 k/uL (1.0-4.8); Lymphocytes % (A) 10 %; MCH 32.6 pg (25.0-35.0); MCHC 33.7 g/dL (31.0-37.0); MCV 96.8 fL (80.0-100.0); Mean Platelet Volume 6.7; Monocytes # (A) 0.2 k/uL (0-1.0); Monocytes % (A) 4 %; Neutrophils # (A) 4.2 k/uL (1.3-7.7); Neutrophils % (A) 83 %; Platelet Count 164 k/uL (150-450); RBC 4.06 m/uL (3.80-5.40); RDW 13.1 % (11.5-15.5); WBC 5.1 k/uL (3.8-10.6)
[2021-07-03 10:54] LABS: ALT 38 U/L (4-34); AST 24 U/L (14-36); African American GFR (CKD) 89 (>60 ml/min/1.73 sqM); Albumin 4.2 g/dL (3.5-5.0); Albumin/Globulin Ratio 1.4; Alkaline Phosphatase 67 U/L (38-126); Anion Gap 7 mmol/L; Blood Urea Nitrogen 28 mg/dL (7-17); Calcium 9.6 mg/dL (8.4-10.2); Carbon Dioxide 25 mmol/L (22-30); Chloride 104 mmol/L (98-107); Globulin 2.9 g/dL; Glucose 131 mg/dL (74-99); Non-African American GFR(CKD) 77 (>60 ml/min/1.73 sqM); Potassium 5.3 mmol/L (3.5-5.1); Sodium 136 mmol/L (137-145); Total Bilirubin 0.6 mg/dL (0.2-1.3); Total Protein 7.1 g/dL (6.3-8.2)
== END | disposition home or self-care (01) ==
LOC: LABWHC1 09:30
PROVIDERS: ATTEND Internal Medicine
DX: C34.11 Malignant neoplasm of upper lobe, right bronchus or lung (principal)
CPT/HCPCS: 36415; 80053; 85025

== ENCOUNTER 2021-07-31 05:21 | Emergency (ER) | payer MEDICAID ==
[2021-07-31 05:41] VITALS: TEMP 97.6
[2021-07-31] MEDS ORDERED: SODIUM CHLORIDE 0.9% 500 ML 500 ML IV STA (06:25)
[2021-07-31] MEDS ORDERED: PANTOPRAZOLE 40 MG/10 ML VIAL IVP STA (06:26)
[2021-07-31] MEDS ORDERED: HYDROmorphone 0.5 MG/0.5 ML SYRINGE IVP STA ×2 (06:26→09:54)
[2021-07-31] MEDS ORDERED: ONDANSETRON 4 MG/2 ML VIAL IVP STA (06:26)
--- NOTE | 2021-07-31 06:30 | ED ---
General Adult HPI - General Chief complaint: Extremity Problem,Nontraumatic Stated complaint: R Arm Pain Time Seen by Provider: 07/31/21 06:06 Source: patient, family Mode of arrival: wheelchair Limitations: no limitations - History of Present Illness Initial comments: 61-year-old female with a past medical history of lung cancer, COPD, hypertension presents to the emergency room for a chief complaint of right arm pain. Patient states last night around 8 PM she started to get some pain in the right forearm and numbness in the finger pad of the second digit of the right hand. Patient states that she did put some heat on the area that helped but it persisted so she decided to be evaluated. Patient is concerned for blood clots given her history of lung cancer. She does admit to some slightly worsening shortness of breath. States she is usually short of breath because of lung cancer but over the past week it worsened somewhat. Denies chest pain. Patient is requesting something for indigestion which has been ongoing for months. Patient's last chemo rounds for several months ago but she has been doing radiation and is starting immunotherapy in 2 days.Patient has no other complaints at this time including chest pain, abdominal pain, nausea or vomiting, headache, or visual changes. - Related Data Home Medications Medication Instructions Recorded Confirmed Atorvastatin [Lipitor] 20 mg PO HS 12/24/18 05/20/20 Lisinopril [Zestril] 10 mg PO DAILY 12/24/18 05/20/20 Montelukast [Singulair] 10 mg PO DAILY PRN 12/24/18 05/20/20 valACYclovir [Valtrex] 500 mg PO DAILY PRN 12/24/18 05/20/20 Previous Rx's Medication Instructions Recorded Ketorolac [Toradol] 10 mg PO Q8HR PRN #10 tab 05/22/20 Cyclobenzaprine [Flexeril] 5 mg PO TID PRN #15 tablet 06/18/21 Pantoprazole [Protonix] 40 mg PO DAILY #30 tab 07/31/21 Allergies Allergy/AdvReac Type Severity Reaction Status Date / Time morphine AdvReac Severe HULLUCINATI Verified 07/31/21 05:41 ON shellfish derived [Shellfish] AdvReac Swelling Verified 07/31/21 05:41 MEDICAL TAPE AdvReac Rash/Hives Uncoded 07/31/21 05:41 Review of Systems ROS Statement: Those systems with pertinent positive or pertinent negative responses have been documented in the HPI. ROS Other: All systems not noted in ROS Statement are negative. Past Medical History Past Medical History: Cancer, COPD, Hypertension Additional Past Medical History / Comment(s): Broken Pelvis. lung CA History of Any Multi-Drug Resistant Organisms: None Reported Past Surgical History: Hysterectomy, Tonsillectomy Additional Past Surgical History / Comment(s): Aortic Bifemeral Bypass March 13 Past Psychological History: No Psychological Hx Reported Smoking Status: Former smoker Past Alcohol Use History: Occasional Past Drug Use History: None Reported General Exam Limitations: no limitations General appearance: alert, in no apparent distress Head exam: Present: atraumatic Eye exam: Present: normal appearance, PERRL, EOMI. Absent: scleral icterus, conjunctival injection ENT exam: Present: normal exam, mucous membranes moist Neck exam: Present: normal inspection, full ROM. Absent: tenderness Respiratory exam: Present: normal lung sounds bilaterally. Absent: respiratory distress, wheezes Cardiovascular Exam: Present: regular rate, normal rhythm, normal heart sounds GI/Abdominal exam: Present: soft, normal bowel sounds. Absent: distended, tenderness Extremities exam: Present: full ROM (Full range of motion right upper extremity including the shoulder elbow and wrist and hands), normal capillary refill (Capi llary refill less than 2 seconds, radial pulse 2+ right upper extremity), pedal edema (Slight 1+ pitting edema noted bilateral lower extremities), other (Sensation intact right upper extremity) Course Vital Signs 07/31/21 07/31/21 05:36 06:45 Temperature 97.6 F Pulse Rate 118 H 94 Respiratory 26 H 18 Rate Blood Pressure 146/99 156/94 O2 Sat by Pulse 96 95 Oximetry EKG Findings - EKG Comments: EKG Findings:: Sinus tachycardia, ventricular rate 108, AL interval 152, QTc 455 Medical Decision Making - Medical Decision Making Vitals are stable. CBC CMP is unremarkable. Troponin is negative. BNP is normal. H[place] virus not detected. Ultrasound reveals no evidence for DVT. Chest CTA shows No acute pulmonary embolism. There is an increasing density to the right lung that can be compatible with recurrent or metastatic lung cancer. Abnormal enhancement within the liver which is known. Patient was given pain medication and did have improvement in symptoms. X-rays of the arm were obtained, no osseous lesions noted. Patient does report that she has an osseous lesion in her neck and therefore pain could be more radicular in nature. Patient was given pain medication and discharged home. She does have Toradol and Tylenol 3 that she can alternate at home. She also has a muscle relaxer that seems to help her. She will be seeing her oncologist in 2 days. She will return here earlier for any worsening symptoms. - Lab Data Result diagrams: 07/31/21 06:28 07/31/21 06:28 Lab Results 07/31/21 07/31/21 07/31/21 Range/Units 06:28 06:28 06:28 WBC 2.4 L (3.8-10.6) k/uL RBC 3.66 L (3.80-5.40) m/uL Hgb 12.1 (11.4-16.0) gm/dL Hct 35.8 (34.0-46.0) % MCV 97.8 (80.0-100.0) fL MCH 33.0 (25.0-35.0) pg MCHC 33.7 (31.0-37.0) g/dL RDW 15.8 H (11.5-15.5) % Plt Count 204 (150-450) k/uL MPV 6.8 Neutrophils % 48 % Lymphocytes % 30 % Monocytes % 9 % Eosinophils % 7 % Basophils % 2 % Neutrophils # 1.2 L (1.3-7.7) k/uL Lymphocytes # 0.7 L (1.0-4.8) k/uL Monocytes # 0.2 (0-1.0) k/uL Eosinophils # 0.2 (0-0.7) k/uL Basophils # 0.0 (0-0.2) k/uL Hyperchromasia Slight Poikilocytosis Moderate Macrocytosis Slight PT 9.9 (9.0-12.0) sec INR 0.9 (<1.2) APTT 21.5 L (22.0-30.0) sec Sodium 139 (137-145) mmol/L Potassium 4.6 (3.5-5.1) mmol/L Chloride 108 H (98-107) mmol/L Carbon Dioxide 21 L (22-30) mmol/L Anion Gap 10 mmol/L BUN 17 (7-17) mg/dL Creatinine 0.77 (0.52-1.04) mg/dL Est GFR (CKD-EPI)AfAm >90 (>60 ml/min/1.73 sqM) Est GFR (CKD-EPI)NonAf 83 (>60 ml/min/1.73 sqM) Glucose 148 H (74-99) mg/dL Plasma Lactic Acid Jamarcus (0.7-2.0) mmol/L Calcium 9.8 (8.4-10.2) mg/dL Total Bilirubin 0.6 (0.2-1.3) mg/dL AST 31 (14-36) U/L ALT 43 H (4-34) U/L Alkaline Phosphatase 88 (38-126) U/L Troponin I (0.000-0.034) ng/mL NT-Pro-B Natriuret Pep pg/mL Total Protein 6.9 (6.3-8.2) g/dL Albumin 4.1 (3.5-5.0) g/dL Coronavirus (PCR) (Not Detectd) 07/31/21 07/31/21 07/31/21 Range/Units 06:28 06:28 06:28 WBC (3.8-10.6) k/uL RBC (3.80-5.40) m/uL Hgb (11.4-16.0) gm/dL Hct (34.0-46.0) % MCV (80.0-100.0) fL MCH (25.0-35.0) pg MCHC (31.0-37.0) g/dL RDW (11.5-15.5) % Plt Count (150-450) k/uL MPV Neutrophils % % Lymphocytes % % Monocytes % % Eosinophils % % Basophils % % Neutrophils # (1.3-7.7) k/uL Lymphocytes # (1.0-4.8) k/uL Monocytes # (0-1.0) k/uL Eosinophils # (0-0.7) k/uL Basophils # (0-0.2) k/uL Hyperchromasia Poikilocytosis Macrocytosis PT (9.0-12.0) sec INR (<1.2) APTT (22.0-30.0) sec Sodium (137-145) mmol/L Potassium (3.5-5.1) mmol/L Chloride (98-107) mmol/L Carbon Dioxide (22-30) mmol/L Anion Gap mmol/L BUN (7-17) mg/dL Creatinine (0.52-1.04) mg/dL Est GFR (CKD-EPI)AfAm (>60 ml/min/1.73 sqM) Est GFR (CKD-EPI)NonAf (>60 ml/min/1.73 sqM) Glucose (74-99) mg/dL Plasma Lactic Acid Jamarcus 1.2 (0.7-2.0) mmol/L Calcium (8.4-10.2) mg/dL Total Bilirubin (0.2-1.3) mg/dL AST (14-36) U/L ALT (4-34) U/L Alkaline Phosphatase (38-126) U/L Troponin I <0.012 (0.000-0.034) ng/mL NT-Pro-B Natriuret Pep 115 pg/mL Total Protein (6.3-8.2) g/dL Albumin (3.5-5.0) g/dL Coronavirus (PCR) (Not Detectd) 07/31/21 Range/Units 06:46 WBC (3.8-10.6) k/uL RBC (3.80-5.40) m/uL Hgb (11.4-16.0) gm/dL Hct (34.0-46.0) % MCV (80.0-100.0) fL MCH (25.0-35.0) pg MCHC (31.0-37.0) g/dL RDW (11.5-15.5) % Plt Count (150-450) k/uL MPV Neutrophils % % Lymphocytes % % Monocytes % % Eosinophils % % Basophils % % Neutrophils # (1.3-7.7) k/uL Lymphocytes # (1.0-4.8) k/uL Monocytes # (0-1.0) k/uL Eosinophils # (0-0.7) k/uL Basophils # (0-0.2) k/uL Hyperchromasia Poikilocytosis Macrocytosis PT (9.0-12.0) sec INR (<1.2) APTT (22.0-30.0) sec Sodium (137-145) mmol/L Potassium (3.5-5.1) mmol/L Chloride (98-107) mmol/L Carbon Dioxide (22-30) mmol/L Anion Gap mmol/L BUN (7-17) mg/dL Creatinine (0.52-1.04) mg/dL Est GFR (CKD-EPI)AfAm (>60 ml/min/1.73 sqM) Est GFR (CKD-EPI)NonAf (>60 ml/min/1.73 sqM) Glucose (74-99) mg/dL Plasma Lactic Acid Jamarcus (0.7-2.0) mmol/L Calcium (8.4-10.2) mg/dL Total Bilirubin (0.2-1.3) mg/dL AST (14-36) U/L ALT (4-34) U/L Alkaline Phosphatase (38-126) U/L Troponin I (0.000-0.034) ng/mL NT-Pro-B Natriuret Pep pg/mL Total Protein (6.3-8.2) g/dL Albumin (3.5-5.0) g/dL Coronavirus (PCR) Not Detected (Not Detectd) Disposition Clinical Impression: Arm pain, right, Shortness of breath Disposition: HOME SELF-CARE Condition: Good Instructions (If sedation given, give patient instructions): Arm Pain (ED) Additional Instructions: Please take pain meds as directed. Follow up with oncology as soon as possible. Return to the ER for any worsening symptoms. Prescriptions: Pantoprazole [Protonix] 40 mg PO DAILY #30 tab Is patient prescribed a controlled substance at d/c from ED?: No Referrals: Shira Farmer MD [Primary Care Provider] - 1-2 days Time of Disposition: 09:53
[2021-07-31 06:45] LABS: Basophils % (A) 2 %; Eosinophils # (A) 0.2 k/uL (0-0.7); Eosinophils % (A) 7 %; HCT 35.8 % (34.0-46.0); HGB 12.1 gm/dL (11.4-16.0); Hyperchromasia Slight; Lymphocytes # (A) 0.7 k/uL (1.0-4.8); Lymphocytes % (A) 30 %; MCHC 33.7 g/dL (31.0-37.0); MCV 97.8 fL (80.0-100.0); Macrocytosis Slight; Mean Platelet Volume 6.8; Monocytes # (A) 0.2 k/uL (0-1.0); Monocytes % (A) 9 %; Neutrophils # (A) 1.2 k/uL (1.3-7.7); Neutrophils % (A) 48 %; Platelet Count 204 k/uL (150-450); Poikilocytosis Moderate; RBC 3.66 m/uL (3.80-5.40); RDW 15.8 % (11.5-15.5); WBC 2.4 k/uL (3.8-10.6)
[2021-07-31 06:55] LABS: ALT 43 U/L (4-34); AST 31 U/L (14-36); African American GFR (CKD) >90 (>60 ml/min/1.73 sqM); Albumin 4.1 g/dL (3.5-5.0); Alkaline Phosphatase 88 U/L (38-126); Anion Gap 10 mmol/L; Blood Urea Nitrogen 17 mg/dL (7-17); Calcium 9.8 mg/dL (8.4-10.2); Carbon Dioxide 21 mmol/L (22-30); Chloride 108 mmol/L (98-107); Glucose 148 mg/dL (74-99); Non-African American GFR(CKD) 83 (>60 ml/min/1.73 sqM); Potassium 4.6 mmol/L (3.5-5.1); Sodium 139 mmol/L (137-145); Total Bilirubin 0.6 mg/dL (0.2-1.3); Total Protein 6.9 g/dL (6.3-8.2)
[2021-07-31 06:58] VITALS: RESP 18
[2021-07-31 07:11] LABS: INR 0.9 (<1.2); Partial Thromboplastin Time 21.5 sec (22.0-30.0); Prothrombin Time 9.9 sec (9.0-12.0)
--- NOTE | 2021-07-31 07:32 | US ---
EXAMINATION TYPE: US venous doppler duplex UE RT DATE OF EXAM: 07/31/2021 COMPARISON: NONE CLINICAL HISTORY: pain, h/o CA, R/o PE. Right neck and arm pain, numbness, h/o CA SIDE PERFORMED: Right Right Arm: Negative for DVT IMPRESSION: No evidence of DVT at this time.
[2021-07-31] MEDS ORDERED: FAMOTIDINE 20 MG/2 ML VIAL IV STA (07:38)
[2021-07-31] MEDS ORDERED: methylPREDNISolone SOD SUCCI 125 MG/2 ML VIAL IV STA (07:38)
[2021-07-31] MEDS ORDERED: diphenhydrAMINE 50 MG/ML 1 ML VIAL IVP STA (07:38)
--- NOTE | 2021-07-31 08:37 | CT ---
CT CHEST FOR PULMONARY EMBOLISM. EXAMINATION TYPE: CT chest angio for PE DATE OF EXAM: 07/31/2021 INDICATION: SOB, Lung Cancer CT DLP: 425.7 mGycm, Automated exposure control for dose reduction was used. CONTRAST: Patient injected with 100 ml mL of Isovue 370. COMPARISON: None TECHNIQUE: CT of the chest is performed on a spiral scan at 2 mm thick sections. Study is performed with intravenous contrast timed for evaluation for pulmonary embolism. This will limit additional po rtions of the evaluation. 3-D MIP images reconstructed by the technologist are reviewed on the compu ter in the coronal and sagittal planes. FINDINGS: No persistent filling defects are evident to suggest an acute pulmonary embolism. No mediastinal or hilar adenopathy enlarged by CT criteria is evident. The ascending aorta diameter at the level of the main pulmonary artery is 2.9 cm. The main pulmonary artery diameter at the bifur cation is 2.7 cm. Emphysematous changes are present. There is some triangular increased density within the periphery of the right upper lobe measuring 3 x 1.4 cm. There is some thickening through the right perihilar jorge on. Underlying adenopathy should be considered. There is a lobular density within the right middle lo be measuring 1.6 x 1.3 cm. Series 601 image 96 lung windows. Findings have increased from the PET/CT of 03/31/2021.1 Hiatal hernia is present Limited CT section through the upper abdomen. There is a 1.3 and 0.6 cm slightly hyperdense area with in the liver. An additional left lobe liver finding measuring 1.9 cm medially present. IMPRESSIONS: 1. No acute pulmonary embolism. 2. Increasing density to the right lung can be compatible with recurrent or metastatic lung cancer. 3. Suspicion of right hilar abnormal adenopathy. 4. Abnormal enhancement within the liver. Hepatic metastasis be considered. 5. Hiatal hernia
--- NOTE | 2021-07-31 09:25 | XR ---
EXAMINATION TYPE: XR humerus RT, XR forearm RT DATE OF EXAM: 07/31/2021 CLINICAL HISTORY: pain COMPARISON: NONE TECHNIQUE: Frontal and lateral images of the right humerus are obtained. 2 views of the right forea rm are also submitted. FINDINGS: There is no acute fracture/dislocation evident. The joint spaces appear within normal limi ts. The overlying soft tissue appears unremarkable. IMPRESSION: There is no acute fracture or dislocation.ICD 10 NO FRACTURE, INITIAL EVALUATION
[2021-07-31] MEDS ORDERED: KETOROLAC 15 MG/ML 1 ML VIAL IVP STA (09:54)
[2021-07-31 11:05] VITALS: BP 133/84; PULSE 92
[2021-07-31 12:20] LABS: T4, Free (Free Thyroxine) 1.41 ng/dL (0.78-2.19)
== END 2021-07-31 11:04 | disposition home or self-care (01) ==
LOC: EC 05:21
DX: R06.02 Shortness of breath (principal); M79.631 Pain in right forearm; Z20.822 Contact with and (suspected) exposure to COVID-19; I10 Essential (primary) hypertension; J44.9 Chronic obstructive pulmonary disease, unspecified; C78.7 Secondary malignant neoplasm of liver and intrahepatic bile duct; C34.90 Malignant neoplasm of unspecified part of unspecified bronchus or lung; Z79.1 Long term (current) use of non-steroidal anti-inflammatories (NSAID); Z87.891 Personal history of nicotine dependence; Z88.5 Allergy status to narcotic agent; Z88.8 Allergy status to other drugs, medicaments and biological substances; Z79.899 Other long term (current) drug therapy
CPT/HCPCS: 36415; 93005; 84439; 84481; 83880; 80053; 82533; 83605; 84443; 84484; 85025; 85610; 85730; 82024; 87635; 73060; 73090; 93971; 71275; 99285; 96374; 96375 ×6; 96376; J1200; J2930; J2405; J1885; C9113; J1170; Q9967

== ENCOUNTER → 2021-08-18 | Outpatient (CLI) | payer MEDICAID ==
[2021-08-18 19:57] LABS: Basophils # (A) 0.07 X 10*3/uL (0.00-0.10); Basophils % (A) 1.9 %; Eosinophils # (A) 0.15 X 10*3/uL (0.04-0.35); HCT 38.1 % (37.2-46.3); HGB 12.6 g/dL (12.0-15.0); Lymphocytes % (A) 24.3 %; MCH 32.6 pg (27.0-32.0); MCHC 33.1 g/dL (32.0-37.0); MCV 98.4 fL (80.0-97.0); Mean Platelet Volume 8.9 fL (9.5-12.2); Monocytes # (A) 0.36 X 10*3/uL (0.20-1.00); Monocytes % (A) 9.7 %; Neutrophils # (A) 2.22 X 10*3/uL (1.80-7.70); Neutrophils % (A) 59.8 %; Platelet Count 272 X 10*3/uL (140-440); RBC 3.87 X 10*6/uL (4.10-5.20); RDW 13.8 % (11.5-14.5); WBC 3.71 X 10*3/uL (4.50-10.00)
[2021-08-18 20:48] LABS: African American GFR (CKD) 62.3 (60.0-200.0); Albumin 4.3 g/dL (3.8-4.9); Albumin/Globulin Ratio 1.79 (1.60-3.17); BUN/Creat Ratio 21.09 Ratio (12.00-20.00); Blood Urea Nitrogen 23.2 mg/dL (9.0-27.0); Calcium 9.4 mg/dL (8.7-10.3); Globulin 2.4 g/dL (1.6-3.3); Non-African American GFR(CKD) 53.8 (60.0-200.0); Potassium 4.2 mmol/L (3.5-5.5); Total Bilirubin 0.4 mg/dL (0.30-1.20); Total Protein 6.7 g/dL (6.2-8.2)
== END | disposition home or self-care (01) ==
LOC: LABWHC1 11:13
PROVIDERS: ATTEND Internal Medicine
DX: C34.11 Malignant neoplasm of upper lobe, right bronchus or lung (principal); M54.12 Radiculopathy, cervical region
CPT/HCPCS: 36415; 80053; 82533; 84443; 85025

== ENCOUNTER → 2021-08-29 | Outpatient (CLI) | payer MEDICAID ==
--- NOTE | 2021-08-29 12:19 | MR ---
EXAMINATION TYPE: MR cervical spine wo/w con DATE OF EXAM: 08/29/2021 11:31 AM COMPARISON: NONE HISTORY: Neck pain into arms and fingers, hx of lung ca CONTRAST: The patient was injected with 9 mL intravenous Gadavist gadolinium contrast. Multiplanar MultiSpin echo imaging of the cervical spine was performed. C2-C3: No evidence for degenerative disc disease. No disc bulge/herniation or protrusion. No Canal stenosis. Foramina are patent bilaterally. C3-C4: No evidence for degenerative disc disease. No disc bulge/herniation or protrusion. No Canal stenosis. Foramina are patent bilaterally. C4-C5: Mild decreased signal and loss of height compatible with degenerative disc disease. Mild poste rior disc bulge with mild effacement ventral thecal sac. No evidence for disc herniation or central s tenosis. Foramina are patent bilaterally. C5-C6: Mild decreased signal and loss of height compatible with degenerative disc disease. Mild poste rior disc bulge with mild effacement ventral thecal sac. No evidence for disc herniation or central s tenosis. Hypertrophic change of the cervical apophyseal joints resulting in mild bilateral foraminal encroachment. C6-C7:Mild decreased signal and loss of height compatible with degenerative disc disease. Mild bartenders ior disc bulge with mild effacement ventral thecal sac. No evidence for disc herniation or central st enosis. Hypertrophic change of the cervical apophyseal joints resulting in mild bilateral foraminal e ncroachment. C7-T1: No evidence for degenerative disc disease. No disc bulge/herniation or protrusion. No Canal stenosis. Foramina are patent bilaterally. No cervical spine fracture. There is normal alignment. Cervical spinal cord is of normal signal. C raniovertebral junction relationships are within normal limits. No pathologic enhancement. IMPRESSION: 1. Degenerative disc disease as discussed above. 2. Bilateral foraminal encroachment at C5-6 and C6-7.
== END | disposition home or self-care (01) ==
LOC: RADMRIMAIN 10:44
PROVIDERS: ATTEND Internal Medicine
DX: M50.33 Other cervical disc degeneration, cervicothoracic region (principal)
CPT/HCPCS: 72156; A9585

== ENCOUNTER → 2021-09-08 | Outpatient (CLI) | payer MEDICAID ==
[2021-09-08 19:35] LABS: Basophils # (A) 0.05 X 10*3/uL (0.00-0.10); Basophils % (A) 1.1 %; Eosinophils # (A) 0.11 X 10*3/uL (0.04-0.35); Eosinophils % (A) 2.4 %; HCT 40.6 % (37.2-46.3); HGB 13.2 g/dL (12.0-15.0); Lymphocytes # (A) 1.06 X 10*3/uL (0.90-5.00); Lymphocytes % (A) 23.2 %; MCH 31.1 pg (27.0-32.0); MCHC 32.5 g/dL (32.0-37.0); MCV 95.5 fL (80.0-97.0); Mean Platelet Volume 9.1 fL (9.5-12.2); Monocytes # (A) 0.41 X 10*3/uL (0.20-1.00); Neutrophils # (A) 2.93 X 10*3/uL (1.80-7.70); Neutrophils % (A) 64.1 %; Platelet Count 254 X 10*3/uL (140-440); RBC 4.25 X 10*6/uL (4.10-5.20); RDW 12.5 % (11.5-14.5); WBC 4.57 X 10*3/uL (4.50-10.00)
[2021-09-08 20:02] LABS: African American GFR (CKD) 79.4 (60.0-200.0); Albumin 4.4 g/dL (3.8-4.9); Albumin/Globulin Ratio 1.69 (1.60-3.17); Anion Gap 14.2 mmol/L (10.00-18.00); Blood Urea Nitrogen 27.9 mg/dL (9.0-27.0); Calcium 9.6 mg/dL (8.7-10.3); Carbon Dioxide 22.8 mmol/L (20.0-27.5); Globulin 2.6 g/dL (1.6-3.3); Non-African American GFR(CKD) 68.5 (60.0-200.0); Total Bilirubin 0.4 mg/dL (0.30-1.20)
== END | disposition home or self-care (01) ==
LOC: LABWHC1 11:47
PROVIDERS: ATTEND Nurse Practitioner Adult Health
DX: C34.11 Malignant neoplasm of upper lobe, right bronchus or lung (principal)
CPT/HCPCS: 36415; 80053; 82533; 84443; 85025

== ENCOUNTER → 2021-09-28 | Outpatient (CLI) | payer MEDICAID ==
--- NOTE | 2021-09-29 12:46 | PE ---
EXAMINATION TYPE: PET CT fusion skull to thigh DATE OF EXAM: 09/28/2021 COMPARISON: Prior PET/CT June 23, 2021 and older studies HISTORY: Lung cancer progress study. Originally diagnosed September 2019 completed radiation treatment March 2021 and immunotherapy September 13. TECHNIQUE: Following the intravenous administration of 8.93 mCi of F-18 FDG, whole body images are p erformed from the skull base to the midthigh. Images are reviewed on the computer in the coronal, ax ial, and sagittal planes. Reconstructed rotating images are created on independent workstation and r eviewed on the computer. A localization and attenuation correction CT is performed in conjunction w ith the PET scan. Blood glucose level equals 166. SCAN: Subsequent Scan FINDINGS: SKULL BASE AND NECK: No new areas of abnormal hypermetabolic uptake. CHEST, MEDIASTINUM, AND HILAR REGION: Background mild to moderate underlying emphysematous changes re demonstrated. Parenchymal scarring lateral aspect right upper lobe axial image 81 redemonstrated. Interval resolution of the hypermetabolic 1.2 x 0.7 cm right mid lung nodule with focal linear scarri ng axial image 101 now present at this level. Interval resolution of the hypermetabolic subcarinal ly mph node. No new areas of abnormal hypermetabolic uptake. ABDOMEN AND PELVIS: Mild diffuse background uptake in the liver slightly more prominent from prior wi thout persistent hypermetabolic focal masses on current study. Liver remains diffusely hypodense on C T. Normal excretion. No new adrenal masses. No new suspicious hypermetabolic lesions. OSSEOUS STRUCTURES: Improvement in abnormal hypermetabolic osseous lesions, mild uptake left lateral sacrum axial image 194 with sclerosis versus the more focal round hypermetabolic uptake on prior stud y. Resolved uptake right iliac bone with now a well-defined lucent lesion having sclerotic uptake axi al image 181 for reference. Mild uptake in the anterior right cervical region axial image 23 signific antly improved from prior where there is now sclerosis present. Spinal canal preserved currently. Mil d hypermetabolic uptake in the anterolateral right mid to lower rib axial image 121 could reflect acu te or healing nondisplaced fracture. Correlate clinically. OTHER CT: Moderate to severe calcified plaque right greater than left carotid bulb is redemonstrated. Mild to moderate three-vessel Coronary artery calcification redemonstrated. Stable small size hiatal hernia Small calcified splenic artery aneurysm is redemonstrated axial image 132. Moderate-sized fat-contain ing umbilical hernia redemonstrated. Uterus surgically absent or markedly atrophic. Aortobiiliac bypa ss graft redemonstrated. IMPRESSION: Marked positive treatment response as detailed above.
== END | disposition home or self-care (01) ==
LOC: RADPETMAIN 07:50
PROVIDERS: ATTEND Internal Medicine
DX: C34.90 Malignant neoplasm of unspecified part of unspecified bronchus or lung (principal)
CPT/HCPCS: 78815; A9552

== ENCOUNTER → 2021-10-02 | Outpatient (CLI) | payer MEDICAID ==
[2021-10-02 11:36] LABS: Basophils # (A) 0.1 k/uL (0-0.2); Basophils % (A) 1 %; Eosinophils # (A) 0.2 k/uL (0-0.7); Eosinophils % (A) 3 %; HCT 38.9 % (34.0-46.0); Lymphocytes # (A) 1.3 k/uL (1.0-4.8); Lymphocytes % (A) 26 %; MCH 30.9 pg (25.0-35.0); MCHC 33.4 g/dL (31.0-37.0); Mean Platelet Volume 6.7; Monocytes # (A) 0.3 k/uL (0-1.0); Monocytes % (A) 6 %; Neutrophils # (A) 3.2 k/uL (1.3-7.7); Neutrophils % (A) 62 %; Platelet Count 251 k/uL (150-450); Poikilocytosis Slight; RBC 4.19 m/uL (3.80-5.40); RDW 13.7 % (11.5-15.5); WBC 5.1 k/uL (3.8-10.6)
[2021-10-02 11:45] LABS: ALT 33 U/L (4-34); AST 28 U/L (14-36); African American GFR (CKD) 69 (>60 ml/min/1.73 sqM); Albumin/Globulin Ratio 1.3; Alkaline Phosphatase 80 U/L (38-126); Anion Gap 11 mmol/L; Blood Urea Nitrogen 26 mg/dL (7-17); Calcium 9.5 mg/dL (8.4-10.2); Carbon Dioxide 28 mmol/L (22-30); Chloride 99 mmol/L (98-107); Globulin 3.2 g/dL; Glucose 156 mg/dL (74-99); Non-African American GFR(CKD) 59 (>60 ml/min/1.73 sqM); Potassium 4.7 mmol/L (3.5-5.1); Sodium 138 mmol/L (137-145); Total Bilirubin 0.5 mg/dL (0.2-1.3); Total Protein 7.2 g/dL (6.3-8.2)
[2021-10-02 11:49] LABS: MCV 92.7 fL (80.0-100.0)
[2021-10-02 12:01] LABS: T4, Free (Free Thyroxine) 1.42 ng/dL (0.78-2.19)
== END | disposition home or self-care (01) ==
LOC: LABWHC1 10:21
PROVIDERS: ATTEND Nurse Practitioner Adult Health
DX: C34.90 Malignant neoplasm of unspecified part of unspecified bronchus or lung (principal)
CPT/HCPCS: 36415; 80053; 82533; 84439; 85025

== ENCOUNTER 2021-10-22 07:45 | Emergency (ER) | payer MEDICAID, OTHER ==
[2021-10-22 07:54] VITALS: RESP 18
[2021-10-22] MEDS ORDERED: SODIUM CHLORIDE 0.9% 500 ML 500 ML IV STA (08:10)
--- NOTE | 2021-10-22 08:21 | ED ---
ENT HPI - General Chief complaint: ENT Stated complaint: Facial & throat swelling Time Seen by Provider: 10/22/21 08:00 Source: patient, RN notes reviewed Mode of arrival: ambulatory Limitations: no limitations - History of Present Illness Initial comments: This is a pleasant 61-year-old female with a history of lung cancer with metastases to multiple sites. Patient presents to the emergency department complaining of left facial and sub-lingual swelling which going on for several days. Patient had been getting recurrent aphthous ulcers is given a paced containing triamcinolone and dental paste. Patient states that this did not seem to help. She has progressive swelling with pain to the left submandibular area. Patient also complaining of a numb feeling to area of her submental area and lower lip area. Patient states due to the swelling is becoming harder for her to open her mouth. She denies any respiratory distress. She has no other complaints. No known fevers. She states the symptoms started about 9 days ago. No headache, no fever or chills, no changes in vision or hearing, no sore throat or difficulty with speech, no neck pain, no chest pain or shortness of breath, no abdominal pain, no nausea or vomiting, no changes in urination or bowel movements, no numbness or tingling, no extremity pain, no skin rashes or lesions. - Related Data Home Medications Medication Instructions Recorded Confirmed Atorvastatin [Lipitor] 20 mg PO HS 12/24/18 05/20/20 Lisinopril [Zestril] 10 mg PO DAILY 12/24/18 05/20/20 Montelukast [Singulair] 10 mg PO DAILY PRN 12/24/18 05/20/20 valACYclovir [Valtrex] 500 mg PO DAILY PRN 12/24/18 05/20/20 Previous Rx's Medication Instructions Recorded Ketorolac [Toradol] 10 mg PO Q8HR PRN #10 tab 05/22/20 Cyclobenzaprine [Flexeril] 5 mg PO TID PRN #15 tablet 06/18/21 Pantoprazole [Protonix] 40 mg PO DAILY #30 tab 07/31/21 Allergies Allergy/AdvReac Type Severity Reaction Status Date / Time morphine AdvReac Severe HULLUCINATI Verified 10/22/21 07:48 ON shellfish derived [Shellfish] AdvReac Swelling Verified 10/22/21 07:48 MEDICAL TAPE AdvReac Rash/Hives Uncoded 07/31/21 05:41 Review of Systems ROS Statement: Those systems with pertinent positive or pertinent negative responses have been documented in the HPI. ROS Other: All systems not noted in ROS Statement are negative. Past Medical History Past Medical History: Cancer, COPD, Hypertension Additional Past Medical History / Comment(s): Broken Pelvis. 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 History of Any Multi-Drug Resistant Organisms: None Reported Past Surgical History: Hysterectomy, Tonsillectomy Additional Past Surgical History / Comment(s): Aortic Bifemeral Bypass March 13, 2017 Past Psychological History: No Psychological Hx Reported Smoking Status: Former smoker Past Alcohol Use History: Occasional Past Drug Use History: None Reported General Exam - General Exam Comments Initial Comments: 61-year-old female in minimal distress. Patient does not appear to be ill or toxic. Limitations: no limitations General appearance: alert, in no apparent distress Head exam: Present: atraumatic, normocephalic, normal inspection Eye exam: Present: normal appearance, PERRL, EOMI. Absent: scleral icterus, conjunctival injection, periorbital swelling ENT exam: Present: mucous membranes moist, TM's normal bilaterally, normal external ear exam, other (Patient has edema to the left submandibular area. Hoping to Dalton's duct appears to be edematous as well. There is tenderness to the area. Airway is patent. No evidence of erythema or ulcerations at this time.) Neck exam: Present: normal inspection. Absent: tenderness, meningismus, lymphadenopathy Respiratory exam: Present: normal lung sounds bilaterally. Absent: respiratory distress, wheezes, rales, rhonchi, stridor Cardiovascular Exam: Present: regular rate, normal rhythm, normal heart sounds. Absent: systolic murmur, diastolic murmur, rubs, gallop, clicks GI/Abdominal exam: Present: soft, normal bowel sounds. Absent: distended, tenderness, guarding, rebound, rigid Extremities exam: Present: normal inspection, full ROM, normal capillary refill. Absent: tenderness, pedal edema, joint swelling, calf tenderness Back exam: Present: normal inspection Neurological exam: Present: alert, oriented X3, CN II-XII intact Psychiatric exam: Present: normal affect, normal mood Skin exam: Present: warm, dry, intact, normal color. Absent: rash Course Vital Signs 10/22/21 07:48 Temperature 98.2 F Pulse Rate 111 H Respiratory 18 Rate Blood Pressure 136/81 O2 Sat by Pulse 99 Oximetry - Reevaluation(s) Reevaluation #1: 10/22/21 12:03 Patient reevaluated and is resting comfortably in the room. Case was discussed in detail with Dr. sheth, the oral surgeon. He suggested that the patient be evaluated by ENT. Transfer process initiated. Medical Decision Making - Medical Decision Making Differential would include dental infection, localized inflammatory process, less likely be Daniel angina although this would be within the differential. We'll obtain CT with IV contrast. Attempt was made to transfer the patient to [facility]. They were not accepting patients. She'll be transferred to [facility]. Accepting physician is Dr. Zepeda. Patient currently stable for transfer. Patient has received Zosyn 4.5 g IV piggyback here in the ER as well as dexamethasone 10 mg IV push. - Lab Data Result diagrams: 10/22/21 08:34 10/22/21 08:34 Lab Results 10/22/21 10/22/21 10/22/21 Range/Units 08:34 08:34 08:34 WBC 8.8 (3.8-10.6) k/uL RBC 3.96 (3.80-5.40) m/uL Hgb 12.0 (11.4-16.0) gm/dL Hct 34.3 (34.0-46.0) % MCV 86.6 D (80.0-100.0) fL MCH 30.4 (25.0-35.0) pg MCHC 35.0 (31.0-37.0) g/dL RDW 14.1 (11.5-15.5) % Plt Count 259 (150-450) k/uL MPV 6.5 Neutrophils % 81 % Lymphocytes % 10 % Monocytes % 7 % Eosinophils % 0 % Basophils % 0 % Neutrophils # 7.1 (1.3-7.7) k/uL Lymphocytes # 0.9 L (1.0-4.8) k/uL Monocytes # 0.6 (0-1.0) k/uL Eosinophils # 0.0 (0-0.7) k/uL Basophils # 0.0 (0-0.2) k/uL Hyperchromasia Slight Poikilocytosis Slight ESR 90 H (0-20) mm/hr Sodium 130 L (137-145) mmol/L Potassium 3.1 L (3.5-5.1) mmol/L Chloride 94 L (98-107) mmol/L Carbon Dioxide 26 (22-30) mmol/L Anion Gap 10 mmol/L BUN 26 H (7-17) mg/dL Creatinine 1.27 H (0.52-1.04) mg/dL Est GFR (CKD-EPI)AfAm 52 (>60 ml/min/1.73 sqM) Est GFR (CKD-EPI)NonAf 45 (>60 ml/min/1.73 sqM) Glucose 184 H (74-99) mg/dL Plasma Lactic Acid Jamarcus 1.6 (0.7-2.0) mmol/L Calcium 9.1 (8.4-10.2) mg/dL Total Bilirubin 1.1 (0.2-1.3) mg/dL AST 27 (14-36) U/L ALT 26 (4-34) U/L Alkaline Phosphatase 95 (38-126) U/L C-Reactive Protein 24.4 H (<1.0) mg/dL Total Protein 7.2 (6.3-8.2) g/dL Albumin 4.0 (3.5-5.0) g/dL - Radiology Data Radiology results: report reviewed, image reviewed Disposition Clinical Impression: Submandibular gland infection, Acute foreign body of ear canal, Hypokalemia Disposition: OTHER INSTITUTION NOT DEFINED Condition: Stable Is patient prescribed a controlled substance at d/c from ED?: No Time of Disposition: 12:00 - Out of Hospital Transfer - Req. Specs Out of Hospital Transfer - Requested Specifics: Other Emergency Center
--- NOTE | 2021-10-22 08:52 | XR ---
EXAMINATION TYPE: XR chest 1V portable DATE OF EXAM: 10/22/2021 COMPARISON: 01/13/2021 HISTORY: Facial swelling TECHNIQUE: Single frontal view of the chest is obtained. FINDINGS: There is no focal air space opacity, pleural effusion, or pneumothorax seen. The cardiac silhouette size is within normal limits. The osseous structures are intact. There is a small focal stable linear scarring in the right upper lobe laterally. IMPRESSION: No acute process.
[2021-10-22 09:09] LABS: Basophils % (A) 0 %; Eosinophils % (A) 0 %; HCT 34.3 % (34.0-46.0); Hyperchromasia Slight; Lymphocytes # (A) 0.9 k/uL (1.0-4.8); Lymphocytes % (A) 10 %; MCH 30.4 pg (25.0-35.0); Mean Platelet Volume 6.5; Monocytes # (A) 0.6 k/uL (0-1.0); Monocytes % (A) 7 %; Neutrophils # (A) 7.1 k/uL (1.3-7.7); Neutrophils % (A) 81 %; Platelet Count 259 k/uL (150-450); Poikilocytosis Slight; RBC 3.96 m/uL (3.80-5.40); RDW 14.1 % (11.5-15.5); WBC 8.8 k/uL (3.8-10.6)
[2021-10-22 09:13] LABS: MCV 86.6 fL (80.0-100.0)
[2021-10-22 09:14] LABS: Calcium 9.1 mg/dL (8.4-10.2); Potassium 3.1 mmol/L (3.5-5.1); Total Bilirubin 1.1 mg/dL (0.2-1.3); Total Protein 7.2 g/dL (6.3-8.2)
[2021-10-22 09:26] LABS: C Reactive Protein 24.4 mg/dL (<1.0)
[2021-10-22] MEDS ORDERED: SODIUM CHLORIDE 0.9% 500 ML 500 ML IV ONE (09:47)
[2021-10-22 09:53] LABS: Erythrocyte Sedimentation Rate 90 mm/hr (0-20)
--- NOTE | 2021-10-22 10:20 | CT ---
EXAMINATION TYPE: CT neck chest w con DATE OF EXAM: 10/22/2021 10:03 AM COMPARISON: 07/24/2019 CT chest HISTORY: Left faacial and submandibular swelling CT DLP: 662.6 mGycm Automated exposure control for dose reduction was used. CONTRAST: CT scan of the neck is performed following with IV Contrast, patient injected with 80 ml mL of Isovue 300. Axial images are obtained, coronal and sagittal reformatted images are reviewed. CT neck findings:: There is enlargement/swelling of the left mandibular gland and muscles of mastication and hazy densit y in the adjacent subcutaneous fat consistent with a diffuse inflammatory process. No discrete absces s is seen. There is no adenopathy. Thyroid gland is normal without focal mass or enlargement. The larynx including the cricoid, right, and cricoid cartilages are normal and symmetric. The inflammation extends the left aspect of the tongue base obliteration left vallecula. There is mil d prominence of the parapharyngeal soft tissues on the left lobe possibly involving the left tonsil w ithout discrete abscess. The retropharyngeal soft tissues are normal. The parotid glands are symmetric in size although there is mild increased density in the left parotid gland possibly involved in the inflammatory process as well. Impression CT neck: Diffuse inflammatory process involving the left neck including the left submandibular gland, muscles of mastication left tongue base and possibly the left pharyngeal soft tissues and left parotid gland . There is no discrete abscess or adenopathy. CT chest findings: There are 2 small groundglass densities in the right lung. The density in the right upper lobe is loc ated where a nodular density was seen previously. There is a new groundglass density in the right low er lobe measuring 8.5 mm. Was seen previously and has grown significantly in the interval. There are a few scattered sub-6 mm pulmonary nodules in the right lung as well. The great vessels the chest are normal and there is no mediastinal, hilar or axillary adenopathy. There is a small hiatal hernia. There is no pleural effusion or pneumothorax. Limited scanning through the upper abdomen reveals calcified aneurysms of the splenic artery. CT chest impression: 1.Significant enlargement of a groundglass nodule in the right lower lobe suspicious for malignancy. Biopsy or short-term follow-up is recommended. 2. Right upper lobe nodule seen on the prior study has been replaced with a focal area of ill-defined groundglass density.
[2021-10-22] MEDS ORDERED: POTASSIUM CHLORIDE ER 20 MEQ TAB.ER PO STA (10:25)
[2021-10-22] MEDS ORDERED: PIPERACILLIN-TAZOBACTAM 3.375 GM in SODIUM CHLORIDE 0.9% 100 ML IVPB STA (11:01)
[2021-10-22] MEDS ORDERED: DEXAMETHASONE SOD PHOSPHATE 10 MG/ML 1 ML VIAL IVP STA (11:01)
[2021-10-22 14:02] VITALS: BP 102/68; PULSE 79; TEMP 98.1
== END 2021-10-22 14:06 | disposition other institution (70) ==
LOC: EC 07:45
DX: T16.9XXA Foreign body in ear, unspecified ear, initial encounter (principal); K11.3 Abscess of salivary gland; E87.6 Hypokalemia; I10 Essential (primary) hypertension; J44.9 Chronic obstructive pulmonary disease, unspecified; Z87.891 Personal history of nicotine dependence; Z79.899 Other long term (current) drug therapy; X58.XXXA Exposure to other specified factors, initial encounter
CPT/HCPCS: 36415; 80053; 85652; 83605; 85025; 86140; 87040; 87635; 71045; 70491; 71260; 99285; 96374; 96375; J2543; J1100; Q9967

== ENCOUNTER → 2021-10-30 | Outpatient (CLI) | payer MEDICAID, OTHER ==
--- NOTE | 2021-10-31 04:14 | MR ---
EXAMINATION TYPE: MR brain wo/w con DATE OF EXAM: 10/30/2021 COMPARISON: 04/14/2021 HISTORY: Metastatic lung cancer, left facial pain, plugged left salivary gland. CONTRAST: Standard multiplanar, multisequence MRI departmental protocol images were obtained without contrast a nd with 9 mL intravenous Gadavist gadolinium contrast. There is mild cerebral atrophy. On the T2 and FLAIR images there are scattered white matter high sign al small foci of increased signal in the periphery of both cerebral hemispheres. Most of these lesion s measure less than 4 mm. The largest measures 10 mm in the left parietal lobe. These are nonenhancin g. The brainstem is intact. Total lumbar white matter lesions is approximately 25. The diffusion images show no evidence of an acute infarct. Contrast images show no pathologic enhancement. There is normal enhancement of the venous sinuses. Se lla turcica appears normal. There is no evidence of orbital mass. IMPRESSION: Multiple nonenhancing white matter peripheral high signal foci likely related to microvascular ischem ia and not significantly different than old exam. I do not see evidence for metastatic disease. No ev idence of acute cortical infarct.
== END | disposition home or self-care (01) ==
LOC: RADMRIMAIN 20:11
PROVIDERS: ATTEND Internal Medicine Hematology & Oncology
DX: C34.11 Malignant neoplasm of upper lobe, right bronchus or lung (principal); R93.0 Abnormal findings on diagnostic imaging of skull and head, not elsewhere classified
CPT/HCPCS: 70553; A9585

== ENCOUNTER → 2022-01-19 | Outpatient (CLI) | payer OTHER ==
--- NOTE | 2022-01-19 15:53 | PE ---
EXAMINATION TYPE: PET CT fusion skull to thigh DATE OF EXAM: 01/19/2022 COMPARISON: Prior PET/CT September 28, 2021 and older studies. HISTORY: Lung cancer progress study. Originally diagnosed September 2019. On immunotherapy through 2021 TECHNIQUE: Following the intravenous administration of 9.83 mCi of F-18 FDG, whole body images are p erformed from the skull base to the midthigh. Images are reviewed on the computer in the coronal, ax ial, and sagittal planes. Reconstructed rotating images are created on independent workstation and r eviewed on the computer. A localization and attenuation correction CT is performed in conjunction w ith the PET scan. Blood glucose level equals 142 SCAN: Subsequent Scan FINDINGS: SKULL BASE AND NECK: No new areas of abnormal hypermetabolic uptake. CHEST, MEDIASTINUM, AND HILAR REGION: Background mild to moderate underlying emphysematous changes re demonstrated. Parenchymal scarring lateral aspect right upper lobe axial image 91 is redemonstrated. No new or recurrent areas of abnormal hypermetabolic uptake. ABDOMEN AND PELVIS: Mild diffuse background uptake in the liver redemonstrated without new hypermetab olic focal masses on current study. Liver remains diffusely hypodense on CT. Normal excretion. No new adrenal masses. Subcentimeter hypermetabolic focus in the medial spleen axia l image [address] correlate is nonspecific, max SUV is 4.01. OSSEOUS STRUCTURES: New hypermetabolic soft tissue mass at the anterolateral lateral right mid rib of the lower thorax measuring 4.4 x 2.8 cm, max SUV is 30.66 on axial image 1:30. New hypermetabolic up take corresponding to lytic lesion in the anterior T10 vertebra axial image 125, max SUV is 11.15. OTHER CT: Moderate to severe calcified plaque right greater than left carotid bulb is redemonstrated. Mild to moderate three-vessel Coronary artery calcification redemonstrated. Stable small size hiatal hernia Small calcified splenic artery aneurysm is redemonstrated axial image 143. Moderate-sized fat-contain ing umbilical hernia redemonstrated. Uterus surgically absent or markedly atrophic. Aortobiiliac bypa ss graft redemonstrated. IMPRESSION: Negative treatment response with osseous metastatic progression noted as detailed above. Indeterminate subcentimeter splenic focus should be followed.
== END | disposition home or self-care (01) ==
LOC: RADPETMAIN 10:53
PROVIDERS: ATTEND Internal Medicine Hematology & Oncology
DX: C34.11 Malignant neoplasm of upper lobe, right bronchus or lung (principal)
CPT/HCPCS: 78815; A9552

== ENCOUNTER → 2022-03-16 | Outpatient (CLI) | payer OTHER ==
--- NOTE | 2022-03-21 05:46 | PE ---
EXAMINATION TYPE: PET CT fusion skull to thigh DATE OF EXAM: 03/19/2022 COMPARISON: Prior PET/CT January 19, 2022 and older studies HISTORY: Right upper non-small cell lung cancer originally diagnosed September 2019 completed chemot herapy October 2021. Completed radiation treatment December 2021. TECHNIQUE: Following the intravenous administration of 6.78 mCi of F-18 FDG, whole body images are p erformed from the skull base to the midthigh. Images are reviewed on the computer in the coronal, ax ial, and sagittal planes. Reconstructed rotating images are created on independent workstation and r eviewed on the computer. A localization and attenuation correction CT is performed in conjunction w ith the PET scan. Blood glucose level equals 120 SCAN: Subsequent Scan FINDINGS: SKULL BASE AND NECK: No new areas of abnormal hypermetabolic uptake. CHEST, MEDIASTINUM, AND HILAR REGION: Background mild to moderate underlying emphysematous change is redemonstrated. Parenchymal scarring lateral aspect right upper lobe axial image 82 is redemonstrated . No new or recurrent areas of abnormal hypermetabolic uptake. ABDOMEN AND PELVIS: Mild diffuse background uptake in the liver redemonstrated without new hypermetab olic focal masses on current study. Liver remains diffusely hypodense on CT. Normal excretion redemonstrated. No new adrenal masses. Some mild nonspecific bowel uptake. More prominent hypermetabolic focus in the medial spleen axial image 123 with now suggestion of 1.1 c m irregular hypodense lesion on CT axial image 128, max SUV is 7.49 versus 4.01 on prior. OSSEOUS STRUCTURES: Marked improvement in hypermetabolic soft tissue mass at the anterolateral latera l right mid rib of the lower thorax now difficult to accurately measure, mild residual hypermetabolic uptake, max SUV is 3.96 versus 30.66 on prior study. Resolved hypermetabolic uptake corresponding to lytic lesion in the anterior T10 vertebra axial image 118, surrounding and posterior sclerosis now is present. OTHER CT: Moderate to severe calcified plaque right greater than left carotid bulb is redemonstrated in medial coursing carotid vessels. Mild to moderate three-vessel Coronary artery calcification redemonstrated. Stable small size hiatal hernia Small calcified splenic artery aneurysm is redemonstrated axial image 143. Moderate-sized fat-contain ing umbilical hernia redemonstrated. Uterus surgically absent or markedly atrophic. Aortobiiliac bypa ss graft redemonstrated. IMPRESSION: Overall mixed treatment response. Interval improvement in osseous metastatic disease. Wor sening splenic lesion noted. No new hypermetabolic lesions identified.
== END | disposition home or self-care (01) ==
LOC: RADPETMAIN 12:14
PROVIDERS: ATTEND Internal Medicine Hematology & Oncology
DX: C34.11 Malignant neoplasm of upper lobe, right bronchus or lung (principal); C79.51 Secondary malignant neoplasm of bone; D73.89 Other diseases of spleen; Z92.3 Personal history of irradiation
CPT/HCPCS: 78815; A9552

== ENCOUNTER → 2022-06-22 | Outpatient (CLI) | payer MEDICAID, OTHER ==
--- NOTE | 2022-06-25 22:42 | PE ---
EXAMINATION TYPE: PET CT fusion skull to thigh DATE OF EXAM: 06/22/2022 CLINICAL INDICATION:Female, 62 years old with history of C34.11 Lung Cancer; TECHNIQUE: Following the intravenous administration of 11.57 mCi of F-18 FDG, whole body images are performed from the skull base to the midthigh. Images are reviewed on the computer in the coronal, axial, and sagittal planes. Reconstructed rotating images are created on independent workstation and reviewed on the computer. A non-contrast CT is performed in conjunction with the PET scan. Glucose level 114 mg/dL COMPARISON: CT 10/22/2021, PET/CT 03/16/2022, FINDINGS: Mediastinal SUV mean is 1.8. Hepatic parenchyma SUV mean is 2.1. SKULL BASE AND NECK: No suspicious FDG activity. CHEST, MEDIASTINUM, AND HILAR REGION: No suspicious FDG activity. ABDOMEN AND PELVIS: * Multiple foci of radiotracer uptake within the liver (4 total): Right hepatic lobe max SUV 8.8, le ft hepatic lobe max SUV 8.4. Right hepatic lobe not definitively visualized on prior left hepatic lob e lesion previously max SUV 3.5. Additional more conspicuous lesions when compared to prior. * Focus of radiotracer uptake on prior in the spleen is no longer visualized. OSSEOUS STRUCTURES: * Right proximal humerus intraosseous focus of FDG uptake max SUV 12.0 previously 5.3. * Right rib #7 Max SUV 10.1 previously 4.0. * New right iliac bone intraosseous lesion max SUV 16.1. * New left proximal femur focus of FDG activity with max SUV 6.8. OTHER CT: Atherosclerosis of the arterial vasculature including the carotid bifurcations and the michaela nary arteries. There are no biiliac stent graft is present. Containing umbilical hernia. IMPRESSION: Overall progressive disease with new right iliac bone, left proximal femur lesions with increasing ri ght proximal humerus and right rib #7 FDG avidity. Additionally there is new and increasing hepatic l esions. The previous focus in the spleen is no longer visualized
== END | disposition home or self-care (01) ==
LOC: RADPETMAIN 09:05
PROVIDERS: ATTEND Internal Medicine Hematology & Oncology
DX: C34.11 Malignant neoplasm of upper lobe, right bronchus or lung (principal)
CPT/HCPCS: 78815; A9552

== ENCOUNTER → 2022-07-21 | Outpatient (CLI) | payer OTHER ==
--- NOTE | 2022-07-21 22:11 | MR ---
EXAMINATION TYPE: MR brain wo/w con DATE OF EXAM: 07/21/2022 COMPARISON: MR brain 10/30/2021 HISTORY: Lung cancer, dizziness, forgetfulness. TECHNIQUE: Multiplanar, multisequence images of the brain and brainstem is performed without and with IV contras t, utilizing 8.5 mL intravenous Gadavist . FINDINGS: Focus of restricted diffusion present in the left cerebellar hemisphere on axial image 11 s eries 303, no corresponding enhancement, focus of low signal is present on T1-weighted images at this level, vague hyperintensity on inversion recovery and T2-weighted sequences. Extensive white matter hyperintensities again seen on inversion recovery and T2-weighted sequences, there has been some pro gression with a large lesion in the right frontal pericallosal white matter having developed in the i nterval, axial image 50 measuring 11 mm, corresponding encephalomalacia suspected, axial image 121 of series 601, sagittal image 20 series 201, likely a focal lacunar infarct. There is no extra-axial fl uid collection or significant white matter signal abnormality. The ventricular system and cisternal spaces are normal in size and appearance. The brain volume is age appropriate. Midline structures demonstrate normal morphology. The craniocervical junction appears within normal limits. Post contrast images demonstrate no abnormal enhancement. The dural venous sinuses appear pa tent. The visualized sinuses are remarkable for mucosal disease in the ethmoid air cells, and the audi bes are intact. IMPRESSION: No abnormal enhancement to suggest metastatic disease.. There is evidence of chronic smal l vessel ischemic change. Punctate focus of restricted diffusion suggests subacute infarct in the lef t cerebellar hemisphere
== END ==
LOC: RADMRIMAIN 12:15
PROVIDERS: ATTEND Radiology Radiation Oncology
DX: C34.11 Malignant neoplasm of upper lobe, right bronchus or lung (principal); I67.82 Cerebral ischemia
CPT/HCPCS: 70553; A9585

== ENCOUNTER → 2022-08-31 | Outpatient (CLI) | payer OTHER ==
--- NOTE | 2022-09-03 09:05 | PE ---
EXAMINATION TYPE: PET CT fusion skull to thigh DATE OF EXAM: 08/31/2022 CLINICAL HISTORY: Lung cancer. TECHNIQUE: Following the intravenous administration of 10.78 mCi of F-18 FDG, whole body images are not performed as the PET/CT truck went down. No imaging performed. Patient not to be charged. COMPARISON: Prior PET/CT June 22, 2022. FINDINGS: n/a IMPRESSION: As above.
== END | disposition home or self-care (01) ==
LOC: RADPETMAIN 07:00
PROVIDERS: ATTEND Internal Medicine Hematology & Oncology
DX: C34.11 Malignant neoplasm of upper lobe, right bronchus or lung (principal)
CPT/HCPCS: 78815

== ENCOUNTER → 2022-09-03 | Outpatient (CLI) | payer OTHER ==
--- NOTE | 2022-09-04 07:48 | MR ---
EXAMINATION TYPE: MR knee RT wo/w con DATE OF EXAM: 09/03/2022 COMPARISON: NONE HISTORY: Hx of lung cancer, Rt knee pain TECHNIQUE: Multiplanar, multisequence images of the knee is performed without and with IV contrast. Patient inje cted with 10 cc of gadolinium. FINDINGS: MEDIAL MENISCUS: Diminutive size posterior horn with abnormal oblique increased signal extending to t he inferior and posterior articular surfaces. LATERAL MENISCUS: Anterior and posterior horns are intact without tear. CRUCIATE LIGAMENTS: The posterior cruciate ligament is intact and unremarkable. Intact anterior cruci ate ligament with increased signal and thickening. COLLATERAL LIGAMENTS: The medial collateral ligament and lateral collateral ligament complex are inta ct and unremarkable. EXTENSOR MECHANISM: Visualized quadriceps and patellar tendons are intact. EFFUSION: Small to moderate size suprapatellar joint effusion. POPLITEAL CYST: Small to moderate-sized multiseptated popliteal/palma cyst with adjacent ill-defined fluid. TRICOMPARTMENT SPACES: Mild to moderate tricompartment joint space loss. Mild narrowing medial and la teral tibiofemoral compartments. No significant spurring. CARTILAGE: Tricompartmental articular cartilage maintained. BONE MARROW SIGNAL: No focal abnormal marrow signal is appreciated. No abnormal enhancement seen. OTHER: Increased edema in the superficial prepatellar and infrapatellar region. IMPRESSION: 1. Emaciated tear posterior horn medial meniscus. 2. Small to moderate size patellar joint effusion. 3. Small to moderate-sized leaking septated popliteal cyst. 4. Mild to moderate tricompartment degenerative changes as detailed above. 5. Myxoid degeneration ACL. 6. No suspicious focal osseous lesion to suggest metastatic disease.
== END | disposition home or self-care (01) ==
LOC: RADMRIMAIN 10:33
PROVIDERS: ATTEND Internal Medicine Hematology & Oncology
DX: C34.11 Malignant neoplasm of upper lobe, right bronchus or lung (principal); M17.11 Unilateral primary osteoarthritis, right knee; M25.461 Effusion, right knee; M71.21 Synovial cyst of popliteal space [Baker], right knee; M23.321 Other meniscus derangements, posterior horn of medial meniscus, right knee
CPT/HCPCS: 73723; A9585

== ENCOUNTER → 2022-09-08 | Outpatient (CLI) | payer OTHER ==
--- NOTE | 2022-09-10 12:09 | PE ---
EXAMINATION TYPE: PET CT fusion skull to thigh DATE OF EXAM: 09/08/2022 CLINICAL INDICATION:Female, 62 years old with history of C34.11; TECHNIQUE: Following the intravenous administration of 11.7 mCi of F-18 FDG, whole body images are performed from the skull base to the midthigh. Images are reviewed on the computer in the coronal, a xial, and sagittal planes. Reconstructed rotating images are created on independent workstation and reviewed on the computer. A non-contrast CT is performed in conjunction with the PET scan. Glucose level 133 mg/dL COMPARISON: CT None, PET/CT most recent 06/22/2022 and 03/16/2022 FINDINGS: Mediastinal SUV mean is 2.1. Hepatic parenchyma SUV mean is 2.5. SKULL BASE AND NECK: No suspicious radiotracer activity. CHEST, MEDIASTINUM, AND HILAR REGION: No suspicious radiotracer activity. ABDOMEN AND PELVIS: Multiple foci of radiotracer uptake within the liver : * Right hepatic lobe anteriorly max SUV 15.2, previously 8.8. * New Right hepatic lobe posteriorly max SUV left 8.8. * Medial right hepatic lobe max SUV 5.4, previously 4.6. * Left hepatic lobe, anteriorly lateral max SUV 11.7, previously 7.9, * Left hepatic lobe posterior medial max SUV 12.1 previously 8.4. OSSEOUS STRUCTURES: * Right proximal humerus intraosseous focus of FDG max SUV 4.9, previously 12.0. * Right rib #7, somewhat elongated area of increased activity Max SUV 8.4 previously 10.1 * Right iliac bone intraosseous lesion max SUV 17.3 previously 16.1, the area is larger on today's e xam. * Left proximal femur focus of FDG activity with max SUV 1.6, previously 6.8. OTHER CT: Atherosclerosis of the arterial vasculature. There is trace bilateral pleural effusions. Almaraz spected to peripherally calcified splenic artery aneurysms unchanged from prior. Aortic biiliac stent graft is present. Fat-containing umbilical hernia. IMPRESSION: Overall progression of disease with new hepatic lesion and increased metabolic activity in the other hepatic lesions as well as increase in FDG activity and size of right iliac bone lesion. The lesion i n the right proximal humerus, right rib 7 left proximal femur have decreased minimally in FDG activit y
== END | disposition home or self-care (01) ==
LOC: RADPETMAIN 08:51
PROVIDERS: ATTEND Internal Medicine Hematology & Oncology
DX: C34.11 Malignant neoplasm of upper lobe, right bronchus or lung (principal); K76.89 Other specified diseases of liver
CPT/HCPCS: 78815; A9552

== ENCOUNTER → 2022-09-24 | Outpatient (CLI) | payer OTHER ==
--- NOTE | 2022-09-24 18:26 | CT ---
EXAMINATION TYPE: CT chest w con DATE OF EXAM: 09/24/2022 COMPARISON: PET CT scan 09/08/2022 HISTORY: lung cancer CT DLP: 322.0 mGycm Automated exposure control for dose reduction was used. CONTRAST: Performed with IV Contrast, patient injected with 70ML mL of Isovue 300. Images obtained from the thoracic inlet to the diaphragm with the IV contrast. There is mild pulmonary emphysema. There is some coarse linear density in the right upper lobe. There is low density 1 cm subpleural nodule in the superior segment right lower lobe. There is mild reticu lar density and pleural thickening posterior left lower lobe. Heart size is normal. There are no tamara r masses. There is no mediastinal adenopathy. Thoracic aorta shows mild atheromatous changes. No aneu rysm or dissection. The thoracic spine shows normal alignment of the vertebra. There is T11 anterior wedging of 20% with sclerosis and consistent with an old fracture. Sternum is intact. No evidence of rib fracture. The sc lerosis in the anterior right mid rib consistent with osteoblastic disease. There is no adrenal mass. Upper abdominal soft tissues are intact. IMPRESSION: Bilateral pulmonary findings consistent with scarring. Lung disease not significantly different than old PET CT scan. There is clearing of the bilateral small pleural effusions compared to old exam. Ost eoblastic changes are stable in the right rib..
== END | disposition home or self-care (01) ==
LOC: RADCTMAIN 17:30
PROVIDERS: ATTEND Internal Medicine Hematology & Oncology
DX: C34.11 Malignant neoplasm of upper lobe, right bronchus or lung (principal); J90 Pleural effusion, not elsewhere classified; J98.4 Other disorders of lung
CPT/HCPCS: 71260; Q9967

== ENCOUNTER → 2022-09-25 | Outpatient (CLI) | payer OTHER ==
--- NOTE | 2022-09-25 18:14 | CT ---
EXAMINATION TYPE: CT angio chest DATE OF EXAM: 09/25/2022 COMPARISON: CT study one day earlier. PET/CT 17 days ago. HISTORY: r/o PE. SOB CT DLP: 340.0 mGycm. Automated Exposure Control for Dose Reduction was Utilized. CONTRAST: CTA scan of the thorax is performed with IV Contrast, patient injected with 80ml mL of Isovue 370, pu lmonary embolism protocol. MIP Images are created on CT scanner and reviewed. FINDINGS: LUNGS: Moderate underlying emphysematous change is redemonstrated. Focal curvilinear scarring lateral right upper lobe again seen axial image 49. Stable 10 x 5 mm superior right lower lobe nodule axial image 63. Mild bibasilar linear atelectasis redemonstrated. No pleural effusion or pneumothorax seen bilaterally. MEDIASTINUM: There is suboptimal study with equal dense contrast in the aorta versus pulmonary arteri es. There is no convincing CT evidence for acute pulmonary embolism . No thoracic aortic aneurysm or dissection. Stable prominent right hilar lymph node axial image 66 with a metabolic on recent PET/CT. No cardiomegaly or pericardial effusion is seen. OTHER: Known hepatic metastatic disease seen better on PET CT versus diagnostic CT. Sclerotic osseous prostatic lesion to the right anterolateral seventh rib axial image 108 is redemonstrated. Sclerosis and height loss involving the superior T11 vertebra is again seen. IMPRESSION: Slightly suboptimal study without acute pulmonary embolism. Moderate underlying emphysema tous change without suspicious new acute pulmonary process. No significant change from recent studies .
== END | disposition home or self-care (01) ==
LOC: RADCTMAIN 16:04
PROVIDERS: ATTEND Internal Medicine Hematology & Oncology
DX: C79.51 Secondary malignant neoplasm of bone (principal); C34.11 Malignant neoplasm of upper lobe, right bronchus or lung; D61.810 Antineoplastic chemotherapy induced pancytopenia; J43.9 Emphysema, unspecified; R11.0 Nausea
CPT/HCPCS: 82565; 84520; 71275; 36415; Q9967

== ENCOUNTER → 2022-09-26 | Outpatient (CLI) | payer OTHER ==
--- NOTE | 2022-09-26 15:35 | US ---
EXAMINATION TYPE: US venous doppler duplex LE BI DATE OF EXAM: 09/26/2022 3:14 PM COMPARISON: NONE CLINICAL HISTORY: C34.11 Z87.891 I82.409. history of arterial disease and stenting; bilateral leg pa in and swelling, no prev dvt SIDE PERFORMED: bilateral TECHNIQUE: The lower extremity deep venous system is examined utilizing real time linear array sonog archana with graded compression, doppler sonography and color-flow sonography. VESSELS IMAGED: Common Femoral Vein Deep Femoral Vein Greater Saphenous Vein * Femoral Vein Popliteal Vein Small Saphenous Vein * Proximal Calf Veins (* superficial vessels) Right Leg: negative for RLE dvt Left Leg: negative for LLE dvt IMPRESSION: 1. Bilateral lower extremity ultrasound negative for deep venous thrombosis.
== END | disposition home or self-care (01) ==
LOC: RADUSWWP 14:35
PROVIDERS: ATTEND Internal Medicine Cardiovascular Disease
DX: C34.11 Malignant neoplasm of upper lobe, right bronchus or lung (principal); I82.409 Acute embolism and thrombosis of unspecified deep veins of unspecified lower extremity; I25.10 Atherosclerotic heart disease of native coronary artery without angina pectoris; Z87.891 Personal history of nicotine dependence
CPT/HCPCS: 93970

== ENCOUNTER 2022-10-08 16:32 | Emergency (ER) | payer OTHER ==
--- NOTE | 2022-10-08 16:35 | ED ---
General Adult HPI - General Source: patient, RN notes reviewed Mode of arrival: ambulatory Limitations: no limitations <Eliud Rankin - Last Filed: 10/08/22 16:34> <Leticia Reich - Last Filed: 10/10/22 16:39> - General Stated complaint: Low hemoglobin, weakness Time Seen by Provider: 10/08/22 16:34 - History of Present Illness Initial comments: 62-year-old female presents emergency Department chief complaint weakness. Patient has underlying metastatic lung cancer. Patient states that she's been vomiting, increasing weakness. Patient is concerned that her hemoglobin is low her oncologist is not open and advised on emergency department. Patient had recent CTA of her chest. Patient states that she is having some discomfort, shortness of breath. Patient states she took a nap states that she is very fatigued states since she woke up from her nap she is able to tolerate half a protein shake. (Eliud Rankin) 62 female with past medical history of stage IV lung cancer with metastases to the liver and spine, A. fib who presents emergency Department with reported weakness. States that she has had weakness over the past couple of days. She had nausea yesterday with inability to hold down any of her medications. She had mild abdominal pain yesterday however this is now completely resolved. Denies fevers however patient several upon emergency evaluation. She denies cough or shortness of breath. No headaches or visual changes. Does have several areas of erythema nodosum that have been acting up. No changes in her bowel or bladder habits. She has been recently diagnosed with A. fib and was placed on Toprol and Eliquis. She did not take her dose of Toprol yesterday due to the vomiting. She denies chest pain or palpitations. No black or bloody stools. Patient does not have a port. Last chemo treatment was last week. No other alleviating, precipitating or modifying factors (Leticia Reich) - Related Data Home Medications Medication Instructions Recorded Confirmed valACYclovir HCL [Valtrex] 500 mg PO DAILY PRN 12/24/18 10/08/22 Acetaminophen-Codeine 300-30mg 1 tab PO Q6H PRN 10/22/21 10/08/22 [Tylenol w/codeine #3] Cyclobenzaprine [Flexeril] 10 mg PO TID PRN 10/22/21 10/08/22 Ibuprofen [Motrin] 800 mg PO TID PRN 10/22/21 10/08/22 LORazepam [Ativan] 0.5 mg PO HS PRN 10/22/21 10/08/22 Metoprolol Succinate [Toprol XL] 50 mg PO HS 10/22/21 10/08/22 Ondansetron Odt [Zofran Odt] 8 mg PO DAILY PRN 10/22/21 10/08/22 Albuterol Sulfate [Ventolin HFA] 2 puff INHALATION RT-Q6H PRN 10/08/22 10/08/22 Apixaban [Eliquis] 5 mg PO BID 10/08/22 10/08/22 Cyanocobalamin [Vitamin B-12] 250 mcg PO DAILY 10/08/22 10/08/22 Docusate [Colace] 100 mg PO BID PRN 10/08/22 10/08/22 Furosemide [Lasix] 40 mg PO DAILY PRN 10/08/22 10/08/22 Gemcitabine 1 dose IV Q14D 10/08/22 10/08/22 Ketorolac [Toradol] 10 mg PO DAILY PRN 10/08/22 10/08/22 Magic Mouth Wash 1 dose PO DAILY PRN 10/08/22 10/08/22 Multivitamins, Thera [Multivitamin 1 tab PO DAILY 10/08/22 10/08/22 (formulary)] OLANZapine [ZyPREXA] 2.5 mg PO DIRECTED 10/08/22 10/08/22 Potassium Chloride ER [K-Dur 20] 20 meq PO DAILY PRN 10/08/22 10/08/22 fentaNYL 75MCG/HR PATCH [Duragesic 1 patch TRANSDERM Q48H 10/08/22 10/08/22 75MCG/HR] hydrOXYzine HCL [Atarax] 10 mg PO TID PRN 10/08/22 10/08/22 Previous Rx's Medication Instructions Recorded Pantoprazole [Protonix] 40 mg PO DAILY #30 tab 07/31/21 Cephalexin [Keflex] 500 mg PO Q6HR #28 cap 10/08/22 Allergies Allergy/AdvReac Type Severity Reaction Status Date / Time shellfish derived [Shellfish] Allergy Swelling Verified 10/08/22 21:51 morphine AdvReac Severe Hallucinati Verified 10/08/22 21:51 ons MEDICAL TAPE Allergy Rash/Hives Uncoded 10/08/22 21:51 Review of Systems ROS Other: All systems not noted in ROS Statement are negative. <Eliud Rankin - Last Filed: 10/08/22 16:34> ROS Other: All systems not noted in ROS Statement are negative. <Leticia Reich - Last Filed: 10/10/22 16:39> ROS Statement: Those systems with pertinent positive or pertinent negative responses have been documented in the HPI. Past Medical History Past Medical History: Cancer, COPD, Hypertension Additional Past Medical History / Comment(s): Broken Pelvis. 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 History of Any Multi-Drug Resistant Organisms: None Reported Past Surgical History: Hysterectomy, Tonsillectomy Additional Past Surgical History / Comment(s): Aortic Bifemeral Bypass March 13, 2017 Smoking Status: Former smoker <Eliud Rankin - Last Filed: 10/08/22 16:34> General Exam General appearance: alert, in no apparent distress, lethargic Head exam: Present: atraumatic, normocephalic, normal inspection Eye exam: Present: normal appearance, PERRL, EOMI. Absent: scleral icterus, conjunctival injection, periorbital swelling ENT exam: Present: normal exam, mucous membranes moist Neck exam: Present: normal inspection. Absent: tenderness, meningismus, lymphadenopathy Respiratory exam: Present: normal lung sounds bilaterally. Absent: respiratory distress, wheezes, rales, rhonchi, stridor Cardiovascular Exam: Present: tachycardia, irregular rhythm, normal heart sounds. Absent: systolic murmur, diastolic murmur, rubs, gallop, clicks GI/Abdominal exam: Present: soft, normal bowel sounds. Absent: distended, tenderness, guarding, rebound, rigid Extremities exam: Present: normal inspection, full ROM, normal capillary refill. Absent: tenderness, pedal edema, joint swelling, calf tenderness Back exam: Present: normal inspection Neurological exam: Present: alert, oriented X3, CN II-XII intact Psychiatric exam: Present: normal affect, normal mood Skin exam: Present: warm, dry, intact, normal color. Absent: rash <Leticia Reich - Last Filed: 10/10/22 16:39> Course Vital Signs 10/08/22 10/08/22 10/08/22 18:00 18:34 18:48 Temperature 98.8 F 100.4 F H Pulse Rate 140 H 151 H 162 H Respiratory 22 18 18 Rate Blood Pressure 101/30 115/85 O2 Sat by Pulse 96 93 L Oximetry 10/08/22 10/08/22 10/09/22 21:00 23:24 00:00 Temperature 99.1 F Pulse Rate 98 112 H 105 H Respiratory 18 16 16 Rate Blood Pressure 109/62 132/74 100/63 O2 Sat by Pulse 96 97 99 Oximetry EKG Findings - EKG Comments: EKG Findings:: EKG demonstrates A. fib with a rapid rate of 157. QRS 88. QTC of 361. No acute ST segment elevations or depressions <Leticia Reich - Last Filed: 10/10/22 16:39> Medical Decision Making - Lab Data Result diagrams: 10/08/22 18:34 10/08/22 18:34 <Leticia Reich - Last Filed: 10/10/22 16:39> - Medical Decision Making Was pt. sent in by a medical professional or institution? @ -No Did you speak to anyone other than the patient for history? @ -Daughter, sister Did you review nursing and triage notes? @ -Yes and I agree Were old charts reviewed? @ -previous hospitalizations Differential Diagnosis? @ -MDM Differential Weakness: Hypoglycemia, shock, sepsis, hyponatremia, anemia, infection, TX, ETOH, adverse medicine reaction, overdose, stroke. ... This is not meant to be an all- inclusive list EKG interpreted by me (3pts min.)? @ -Yes X-rays interpreted by me (1pt min.)? @ -yes CT interpreted by me (1pt min.)? @ none U/S interpreted by me (1pt. min.)? @ -[none] What testing was considered but not performed? (CT, X-rays, U/S, labs)? Why? @ none What meds were considered but not given? Why? @ -none Did you discuss the management of the patient with other professionals? @ none Did you reconcile home meds? @ -No Was smoking cessation discussed for >3mins.? @ -No Was critical care preformed (if so, how long)? @ -yes, control of afib with rvr - 35 minutes Were there social determinants of health that impacted care today? How? (Homelessness, low income, unemployed, alcoholism, drug addiction, transportation, low edu. Level, literacy, decrease access to med. care, long term, rehab)? @ None Was there de-escalation of care discussed even if they declined? (Discuss DNR or withdrawal of care, Hospice)? @ None What co-morbidities impacted this encounter? (DM, HTN, Smoking, COPD, CAD, Cancer, CVA, Hep., AIDS, mental health diagnosis, sleep apnea, morbid obesity)? @ -cancer, afib with rvr Was patient admitted / discharged? Upon arrival patient is placed into room 3. A thorough history and physical exam was performed. Patient placed on continuous pulse ox and cardiac monitoring. IV access established laboratory studies are conducted. Hemoglobin is stable at 9.5. Sodium 133. Troponin is negative. Urinalysis demonstrates small leukocyte esterase. Covid, influenza and RSV are all negative. Chest x- ray demonstrates mild pleural thickening at the left lung base. Patient was given a dose of Lopressor for her heart rate. She was given Lopressor for heart rate and a dose of pain medications. I did offer her something for nausea however patient refused. She was given a 500 bolus. Reevaluation demonstrates improvement in her heart rate. She is then given her oral Lopressor. I did discuss the laboratory studies and imaging with the patient. Recommended admission due to her fever with active chemotherapy. Also because of the A. fib with RVR. Patient is adamant that she does not want to be admitted at this time. States that she feels well and does not want to contract any infectious disease from the hospital. She does have a follow-up appointment with her oncologist on . Would prefer to perform all treatment outpatient. I did inform the patient's of the high concern that I have that she could progress and become sicker. She understands this. She is of sound mind and capable of making her own decisions. Blood cultures obtained. Patient will be initiated on Keflex. Informed to the patient that I am unsure of her source of infection. She is to continue taking her medications as directed. Follow-up with all of her doctors and please return should she agree to hospitalization. Patient agreeable to this and was discharged home in stable condition Undiagnosed new problem with uncertain prognosis? @ -yes Drug Therapy requiring intensive monitoring for toxicity (Heparin, Nitro, Insulin, Cardizem)? @ yes labetelol Were any procedures done? @ No Diagnosis/symptom? @ -acute nausea/vomiting, afib with rvr Acute, or Chronic, or Acute on Chronic? @ -acute on chronic Uncomplicated (without systemic symptoms) or Complicated (systemic symptoms)? @ -complicated Side effects of treatment? @ bradycardia Exacerbation, Progression, or Severe Exacerbation] @ severe exacerbation Poses a threat to life or bodily function? @ Yes (Leticia Reich) - Lab Data Lab Results 10/08/22 10/08/22 10/08/22 Range/Units 16:33 18:34 18:34 WBC 6.5 (3.8-10.6) k/uL RBC 2.85 L (3.80-5.40) m/uL Hgb 9.5 L (11.4-16.0) gm/dL Hct 26.6 L (34.0-46.0) % MCV 93.2 (80.0-100.0) fL MCH 33.2 (25.0-35.0) pg MCHC 35.7 (31.0-37.0) g/dL RDW 19.5 H (11.5-15.5) % Plt Count 308 (150-450) k/uL MPV 7.4 Neutrophils % 85 % Lymphocytes % 7 % Monocytes % 3 % Eosinophils % 3 % Basophils % 1 % Neutrophils # 5.5 (1.3-7.7) k/uL Lymphocytes # 0.4 L (1.0-4.8) k/uL Monocytes # 0.2 (0-1.0) k/uL Eosinophils # 0.2 (0-0.7) k/uL Basophils # 0.1 (0-0.2) k/uL Poikilocytosis Slight Anisocytosis Slight PT 10.4 (9.0-12.0) sec INR 1.0 (<1.2) APTT 24.5 (22.0-30.0) sec Sodium (137-145) mmol/L Potassium (3.5-5.1) mmol/L Chloride (98-107) mmol/L Carbon Dioxide (22-30) mmol/L Anion Gap mmol/L BUN (7-17) mg/dL Creatinine (0.52-1.04) mg/dL Est GFR (CKD-EPI)AfAm (>60 ml/min/1.73 sqM) Est GFR (CKD-EPI)NonAf (>60 ml/min/1.73 sqM) Glucose (74-99) mg/dL Plasma Lactic Acid Jamarcus (0.7-2.0) mmol/L Calcium (8.4-10.2) mg/dL Magnesium (1.6-2.3) mg/dL Total Bilirubin (0.2-1.3) mg/dL AST (14-36) U/L ALT (4-34) U/L Alkaline Phosphatase (38-126) U/L Troponin I (0.000-0.034) ng/mL NT-Pro-B Natriuret Pep pg/mL Total Protein (6.3-8.2) g/dL Albumin (3.5-5.0) g/dL Urine Color Light Yellow Urine Appearance Clear (Clear) Urine pH 5.5 (5.0-8.0) Ur Specific [place] 1.007 (1.001-1.035) Urine Protein Negative (Negative) Urine Glucose (UA) Negative (Negative) Urine Ketones Negative (Negative) Urine Blood Negative (Negative) Urine Nitrite Negative (Negative) Urine Bilirubin Negative (Negative) Urine Urobilinogen <2.0 (<2.0) mg/dL Ur Leukocyte Esterase Small H (Negative) Urine RBC 2 (0-5) /hpf Urine WBC 3 (0-5) /hpf Ur Squamous Epith Cells 1 (0-4) /hpf Urine Bacteria Rare H (None) /hpf Urine Mucus Rare H (None) /hpf Influenza Type A (PCR) (Not Detectd) Influenza Type B (PCR) (Not Detectd) RSV (PCR) (Not Detectd) SARS-CoV-2 (PCR) (Not Detectd) Blood Type Blood Type Recheck Bld Type Recheck Status Antibody Screen Spec Expiration Date 10/08/22 10/08/22 10/08/22 Range/Units 18:34 18:34 18:34 WBC (3.8-10.6) k/uL RBC (3.80-5.40) m/uL Hgb (11.4-16.0) gm/dL Hct (34.0-46.0) % MCV (80.0-100.0) fL MCH (25.0-35.0) pg MCHC (31.0-37.0) g/dL RDW (11.5-15.5) % Plt Count (150-450) k/uL MPV Neutrophils % % Lymphocytes % % Monocytes % % Eosinophils % % Basophils % % Neutrophils # (1.3-7.7) k/uL Lymphocytes # (1.0-4.8) k/uL Monocytes # (0-1.0) k/uL Eosinophils # (0-0.7) k/uL Basophils # (0-0.2) k/uL Poikilocytosis Anisocytosis PT (9.0-12.0) sec INR (<1.2) APTT (22.0-30.0) sec Sodium 133 L (137-145) mmol/L Potassium 3.9 (3.5-5.1) mmol/L Chloride 102 (98-107) mmol/L Carbon Dioxide 24 (22-30) mmol/L Anion Gap 7 mmol/L BUN 20 H (7-17) mg/dL Creatinine 0.94 (0.52-1.04) mg/dL Est GFR (CKD-EPI)AfAm 75 (>60 ml/min/1.73 sqM) Est GFR (CKD-EPI)NonAf 65 (>60 ml/min/1.73 sqM) Glucose 152 H (74-99) mg/dL Plasma Lactic Acid Jamarcus 1.0 (0.7-2.0) mmol/L Calcium 8.4 (8.4-10.2) mg/dL Magnesium 1.9 (1.6-2.3) mg/dL Total Bilirubin 0.8 (0.2-1.3) mg/dL AST 74 H (14-36) U/L ALT 106 H (4-34) U/L Alkaline Phosphatase 100 (38-126) U/L Troponin I <0.012 (0.000-0.034) ng/mL NT-Pro-B Natriuret Pep pg/mL Total Protein 6.5 (6.3-8.2) g/dL Albumin 3.8 (3.5-5.0) g/dL Urine Color Urine Appearance (Clear) Urine pH (5.0-8.0) Ur Specific [place] (1.001-1.035) Urine Protein (Negative) Urine Glucose (UA) (Negative) Urine Ketones (Negative) Urine Blood (Negative) Urine Nitrite (Negative) Urine Bilirubin (Negative) Urine Urobilinogen (<2.0) mg/dL Ur Leukocyte Esterase (Negative) Urine RBC (0-5) /hpf Urine WBC (0-5) /hpf Ur Squamous Epith Cells (0-4) /hpf Urine Bacteria (None) /hpf Urine Mucus (None) /hpf Influenza Type A (PCR) (Not Detectd) Influenza Type B (PCR) (Not Detectd) RSV (PCR) (Not Detectd) SARS-CoV-2 (PCR) (Not Detectd) Blood Type Blood Type Recheck Bld Type Recheck Status Antibody Screen Spec Expiration Date 10/08/22 10/08/22 10/08/22 Range/Units 18:34 18:46 20:30 WBC (3.8-10.6) k/uL RBC (3.80-5.40) m/uL Hgb (11.4-16.0) gm/dL Hct (34.0-46.0) % MCV (80.0-100.0) fL MCH (25.0-35.0) pg MCHC (31.0-37.0) g/dL RDW (11.5-15.5) % Plt Count (150-450) k/uL MPV Neutrophils % % Lymphocytes % % Monocytes % % Eosinophils % % Basophils % % Neutrophils # (1.3-7.7) k/uL Lymphocytes # (1.0-4.8) k/uL Monocytes # (0-1.0) k/uL Eosinophils # (0-0.7) k/uL Basophils # (0-0.2) k/uL Poikilocytosis Anisocytosis PT (9.0-12.0) sec INR (<1.2) APTT (22.0-30.0) sec Sodium (137-145) mmol/L Potassium (3.5-5.1) mmol/L Chloride (98-107) mmol/L Carbon Dioxide (22-30) mmol/L Anion Gap mmol/L BUN (7-17) mg/dL Creatinine (0.52-1.04) mg/dL Est GFR (CKD-EPI)AfAm (>60 ml/min/1.73 sqM) Est GFR (CKD-EPI)NonAf (>60 ml/min/1.73 sqM) Glucose (74-99) mg/dL Plasma Lactic Acid Jamarcus (0.7-2.0) mmol/L Calcium (8.4-10.2) mg/dL Magnesium (1.6-2.3) mg/dL Total Bilirubin (0.2-1.3) mg/dL AST (14-36) U/L ALT (4-34) U/L Alkaline Phosphatase (38-126) U/L Troponin I (0.000-0.034) ng/mL NT-Pro-B Natriuret Pep 875 pg/mL Total Protein (6.3-8.2) g/dL Albumin (3.5-5.0) g/dL Urine Color Urine Appearance (Clear) Urine pH (5.0-8.0) Ur Specific [place] (1.001-1.035) Urine Protein (Negative) Urine Glucose (UA) (Negative) Urine Ketones (Negative) Urine Blood (Negative) Urine Nitrite (Negative) Urine Bilirubin (Negative) Urine Urobilinogen (<2.0) mg/dL Ur Leukocyte Esterase (Negative) Urine RBC (0-5) /hpf Urine WBC (0-5) /hpf Ur Squamous Epith Cells (0-4) /hpf Urine Bacteria (None) /hpf Urine Mucus (None) /hpf Influenza Type A (PCR) Not Detected (Not Detectd) Influenza Type B (PCR) Not Detected (Not Detectd) RSV (PCR) Not Detected (Not Detectd) SARS-CoV-2 (PCR) Not Detected (Not Detectd) Blood Type B Positive Blood Type Recheck B Pos Bld Type Recheck Status No Antibody Screen NEGATIVE Spec Expiration Date 10/11/2022 - 2329 Critical Care Time Critical Care Time: Yes <Leticia Reich - Last Filed: 10/10/22 16:39> Critical Care Time: 35 minutes (Leticia Reich) Disposition <Eliud Rankin - Last Filed: 10/08/22 16:34> Is patient prescribed a controlled substance at d/c from ED?: No Time of Disposition: 22:47 <Leticia Reich - Last Filed: 10/10/22 16:39> Clinical Impression: Fever, Lung cancer, Maintenance chemotherapy, Atrial fibrillation with RVR, Nausea and vomiting Disposition: HOME SELF-CARE Condition: Stable Instructions (If sedation given, give patient instructions): Fever in Adults (ED) Additional Instructions: I recommended that you stay in the hospital. Please take the antibiotics as directed and have your labs repeated on . If you have worsening symptoms you will have to be hospitalized. Please return should you agree to hospitalization Prescriptions: Cephalexin [Keflex] 500 mg PO Q6HR #28 cap Referrals: Shira Farmer MD [Primary Care Provider] - 1-2 days
[2022-10-08] MEDS ORDERED: ACETAMINOPHEN TAB 500 MG TAB PO STA (18:53)
[2022-10-08 18:58] LABS: Anisocytosis Slight; Basophils # (A) 0.1 k/uL (0-0.2); Basophils % (A) 1 %; Eosinophils # (A) 0.2 k/uL (0-0.7); Eosinophils % (A) 3 %; HCT 26.6 % (34.0-46.0); HGB 9.5 gm/dL (11.4-16.0); Lymphocytes # (A) 0.4 k/uL (1.0-4.8); Lymphocytes % (A) 7 %; MCH 33.2 pg (25.0-35.0); MCHC 35.7 g/dL (31.0-37.0); MCV 93.2 fL (80.0-100.0); Mean Platelet Volume 7.4; Monocytes # (A) 0.2 k/uL (0-1.0); Monocytes % (A) 3 %; Neutrophils # (A) 5.5 k/uL (1.3-7.7); Neutrophils % (A) 85 %; Platelet Count 308 k/uL (150-450); Poikilocytosis Slight; RBC 2.85 m/uL (3.80-5.40); RDW 19.5 % (11.5-15.5); WBC 6.5 k/uL (3.8-10.6)
[2022-10-08 19:05] LABS: Albumin 3.8 g/dL (3.5-5.0); Calcium 8.4 mg/dL (8.4-10.2); Magnesium 1.9 mg/dL (1.6-2.3); Potassium 3.9 mmol/L (3.5-5.1); Total Bilirubin 0.8 mg/dL (0.2-1.3); Total Protein 6.5 g/dL (6.3-8.2)
--- NOTE | 2022-10-08 19:15 | XR ---
EXAMINATION TYPE: XR chest 2V DATE OF EXAM: 10/08/2022 COMPARISON: 10/22/2021 HISTORY: Weakness TECHNIQUE: FINDINGS: There is slight blunting left costophrenic angle. There is linear density right upper lobe. Heart size is normal. No heart failure. There are chest leads. There are no hilar masses. IMPRESSION: There is some pleural reaction and fluid at the lateral left lung base. This appears new compared to the exam. There is some mild scarring or atelectasis right upper lobe. Normal heart.
[2022-10-08 19:17] LABS: Partial Thromboplastin Time 24.5 sec (22.0-30.0); Prothrombin Time 10.4 sec (9.0-12.0)
[2022-10-08] MEDS ORDERED: fentaNYL (PF) 50 MCG/ML 2 ML AMP IVP STA (19:37)
[2022-10-08] MEDS: METOPROLOL TARTRATE 5 MG/5 ML VIAL IVP SCH ×2 (20:06→22:42)
[2022-10-08] MEDS ORDERED: SODIUM CHLORIDE 0.9% 500 ML 500 ML IV ONE (20:53)
[2022-10-08] MEDS ORDERED: METOPROLOL SUCCINATE (ER) 100 MG TAB.ER.24H PO STA (21:36)
[2022-10-08 21:56] VITALS: TEMP 99.1
[2022-10-08 22:11] LABS: Appearance,Urine Clear (Clear); Bacteria,Urine Rare /hpf; Bilirubin,Urine Negative (Negative); Blood,Urine Negative (Negative); Color,Urine Light Yellow; Glucose,Urine (UA) Negative (Negative); Ketones,Urine Negative (Negative); Leukocyte Esterase,Urine Small (Negative); Mucus,Urine Rare /hpf; Nitrite,Urine Negative (Negative); PH, Urine 5.5 (5.0-8.0); Protein,Urine Negative (Negative); RBC,Urine 2 /hpf (0-5); Specific Gravity,Urine 1.007 (1.001-1.035); Squamous Epithelial Cell,Urine 1 /hpf (0-4); Urobilinogen,Urine <2.0 mg/dL (<2.0); WBC,Urine 3 /hpf (0-5)
[2022-10-08] MEDS ORDERED: CEPHALEXIN 500 MG CAP PO STA (22:35)
[2022-10-08 23:25] VITALS: RESP 16
[2022-10-09 00:31] VITALS: BP 100/63; PULSE 105
== END 2022-10-09 00:03 | disposition home or self-care (01) ==
LOC: EC 16:32
DX: Z51.11 Encounter for antineoplastic chemotherapy (principal); I48.20 Chronic atrial fibrillation, unspecified; R11.2 Nausea with vomiting, unspecified; R50.9 Fever, unspecified; D49.1 Neoplasm of unspecified behavior of respiratory system; J44.9 Chronic obstructive pulmonary disease, unspecified; I10 Essential (primary) hypertension; Z87.891 Personal history of nicotine dependence; Z91.013 Allergy to seafood; Z88.6 Allergy status to analgesic agent; Z91.048 Other nonmedicinal substance allergy status; Z79.01 Long term (current) use of anticoagulants; Z79.899 Other long term (current) drug therapy; Z20.822 Contact with and (suspected) exposure to COVID-19
CPT/HCPCS: 36415; 93005; 86900; 86901; 83880; 80053; 83605; 83735; 84484; 85025; 85610; 85730; 86850; 81001; 87040; 87077; 87186; 87636; 71046; 99285; 96374; 96375; 96376; J3010

== ENCOUNTER → 2022-11-01 | Outpatient (CLI) | payer OTHER ==
--- NOTE | 2022-11-01 12:48 | US ---
EXAMINATION TYPE: US abdomen complete DATE OF EXAM: 11/01/2022 COMPARISON: PET/CT dated 09/08/2022 CLINICAL HISTORY: R18.0 MALIGNANT ASCITES. Malignant ascites per order. Hx liver cancer, chemo curren tly. Hx aortic bifemoral bypass. TECHNIQUE: Multiple sonographic images of the abdomen are obtained. 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 Pancreas: Tail was not well seen. Liver:- Hypoechoic liver masses seen within the left lobe: #1 Superior: 3.7 x 3.2 x 3.0 cm. #2 Inferior: 3.0 x 3.3 x 2.5 cm. -Hypoechoic area seen mid liver anteriorly: 1.5 x 1.6 x 1.2 cm. -Hypoechoic area seen right lobe anteriorly: 2.5 x 3.1 x 2.3 cm. Gallbladder: Wall measures upper limits. Hyperechoic area seen attached to wall with ring down artifa ct measuring 0.5 x 0.4 x 0.5 cm, possibly adenomyomatosis Evidence for sonographic Finch's sign: No CBD: Within normal limits Spleen: Benign-appearing hyperechoic area seen in spleen: 0.7 x 0.6 x 0.8 cm. Right Kidney: No hydronephrosis or masses seen Left Kidney: No hydronephrosis or masses seen. Upper IVC: Appears wnl Abd Aorta: Prox-mid appeared wnl. Distal and iliacs were obscured, hx bifemoral bypass per patient. Ascites not seen. IMPRESSION: 1. No ascites. 2. Multiple hypoechoic liver metastases. There are known masses that are not seen with ultrasound tod ay. As most recent study was a PET CT, these would be better compared with similar modality. 3. No other significant abnormality.
== END | disposition home or self-care (01) ==
LOC: RADUSWWP 11:09
PROVIDERS: ATTEND Internal Medicine
DX: C78.7 Secondary malignant neoplasm of liver and intrahepatic bile duct (principal); R18.0 Malignant ascites
CPT/HCPCS: 76700

== ENCOUNTER 2022-11-04 03:40 | Emergency (ER) | payer OTHER ==
[2022-11-04 04:09] VITALS: TEMP 98.3
[2022-11-04] MEDS ORDERED: HYDROmorphone 1 MG/ML 1 ML SYRINGE IVP STA (04:28)
[2022-11-04] MEDS ORDERED: SODIUM CHLORIDE 0.9% 500 ML 500 ML IV STA (04:28)
[2022-11-04] MEDS ORDERED: SODIUM CHLORIDE 0.9% 1,000 ML IV STA (04:28)
[2022-11-04] MEDS ORDERED: ONDANSETRON 4 MG/2 ML VIAL IVP STA (04:28)
--- NOTE | 2022-11-04 04:28 | ED ---
Abdominal Pain HPI - General Source: patient, RN notes reviewed, old records reviewed Mode of arrival: ambulatory Limitations: no limitations - History of Present Illness MD Complaint: abdominal pain -: days(s) Location: diffuse Migration to: no migration Severity: severe Severity scale (1-10): 10 Quality: sharp Consistency: constant Improves With: nothing Worsens With: nothing Associated Symptoms: nausea Treatments Prior to Arrival: prescription analgesics <Yousuf Rutherford - Last Filed: 11/04/22 07:20> <Wyatt Villareal - Last Filed: 11/04/22 11:10> - General Chief Complaint: Abdominal Pain Stated Complaint: Abd Pain, Back Pain Time Seen by Provider: 11/04/22 04:27 - History of Present Illness Initial Comments: This is a 62-year-old female coming in for pain. This is likely cancer pain and cancer associated pain patient is known significant cancer with history of metastasis. 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 Pain is severe. No nausea vomiting no fevers no travel history or sick contacts (Yousuf Rutherford) - Related Data Home Medications Medication Instructions Recorded Confirmed valACYclovir HCL [Valtrex] 500 mg PO DAILY PRN 12/24/18 10/08/22 Acetaminophen-Codeine 300-30mg 1 tab PO Q6H PRN 10/22/21 10/08/22 [Tylenol w/codeine #3] Cyclobenzaprine [Flexeril] 10 mg PO TID PRN 10/22/21 10/08/22 Ibuprofen [Motrin] 800 mg PO TID PRN 10/22/21 10/08/22 LORazepam [Ativan] 0.5 mg PO HS PRN 10/22/21 10/08/22 Metoprolol Succinate [Toprol XL] 50 mg PO HS 10/22/21 10/08/22 Ondansetron Odt [Zofran Odt] 8 mg PO DAILY PRN 10/22/21 10/08/22 Albuterol Sulfate [Ventolin HFA] 2 puff INHALATION RT-Q6H PRN 10/08/22 10/08/22 Apixaban [Eliquis] 5 mg PO BID 10/08/22 10/08/22 Cyanocobalamin [Vitamin B-12] 250 mcg PO DAILY 10/08/22 10/08/22 Docusate [Colace] 100 mg PO BID PRN 10/08/22 10/08/22 Furosemide [Lasix] 40 mg PO DAILY PRN 10/08/22 10/08/22 Gemcitabine 1 dose IV Q14D 10/08/22 10/08/22 Ketorolac [Toradol] 10 mg PO DAILY PRN 10/08/22 10/08/22 Magic Mouth Wash 1 dose PO DAILY PRN 10/08/22 10/08/22 Multivitamins, Thera [Multivitamin 1 tab PO DAILY 10/08/22 10/08/22 (formulary)] OLANZapine [ZyPREXA] 2.5 mg PO DIRECTED 10/08/22 10/08/22 Potassium Chloride ER [K-Dur 20] 20 meq PO DAILY PRN 10/08/22 10/08/22 fentaNYL 75MCG/HR PATCH [Duragesic 1 patch TRANSDERM Q48H 10/08/22 10/08/22 75MCG/HR] hydrOXYzine HCL [Atarax] 10 mg PO TID PRN 10/08/22 10/08/22 Previous Rx's Medication Instructions Recorded Pantoprazole [Protonix] 40 mg PO DAILY #30 tab 07/31/21 Cephalexin [Keflex] 500 mg PO Q6HR #28 cap 10/08/22 Allergies Allergy/AdvReac Type Severity Reaction Status Date / Time shellfish derived [Shellfish] Allergy Swelling Verified 10/08/22 21:51 morphine AdvReac Severe Hallucinati Verified 10/08/22 21:51 ons MEDICAL TAPE Allergy Rash/Hives Uncoded 10/08/22 21:51 Review of Systems ROS Other: All systems not noted in ROS Statement are negative. <Yousuf Rutherford - Last Filed: 11/04/22 07:20> ROS Other: All systems not noted in ROS Statement are negative. <Wyatt Villareal - Last Filed: 11/04/22 11:10> ROS Statement: Those systems with pertinent positive or pertinent negative responses have been documented in the HPI. Past Medical History Past Medical History: Cancer, COPD, Hypertension Additional Past Medical History / Comment(s): Broken Pelvis. 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 History of Any Multi-Drug Resistant Organisms: None Reported Past Surgical History: Hysterectomy, Tonsillectomy Additional Past Surgical History / Comment(s): Aortic Bifemeral Bypass March 13, 2017 Past Psychological History: No Psychological Hx Reported Smoking Status: Former smoker Past Alcohol Use History: None Reported Past Drug Use History: None Reported <Yousuf Rutherford - Last Filed: 11/04/22 07:20> General Exam Limitations: no limitations General appearance: alert, in no apparent distress Head exam: Present: atraumatic, normocephalic, normal inspection Eye exam: Present: normal appearance, PERRL, EOMI. Absent: scleral icterus, conjunctival injection, periorbital swelling ENT exam: Present: normal exam, mucous membranes moist Neck exam: Present: normal inspection. Absent: tenderness, meningismus, lymphadenopathy Respiratory exam: Present: normal lung sounds bilaterally. Absent: respiratory distress, wheezes, rales, rhonchi, stridor Cardiovascular Exam: Present: regular rate, normal rhythm, normal heart sounds. Absent: systolic murmur, diastolic murmur, rubs, gallop, clicks GI/Abdominal exam: Present: soft, normal bowel sounds. Absent: distended, tenderness, guarding, rebound, rigid Extremities exam: Present: normal inspection, full ROM, normal capillary refill. Absent: tenderness, pedal edema, joint swelling, calf tenderness Back exam: Present: normal inspection Neurological exam: Present: alert, oriented X3, CN II-XII intact Psychiatric exam: Present: normal affect, normal mood Skin exam: Present: warm, dry, intact, normal color. Absent: rash <Yousuf Rutherford - Last Filed: 11/04/22 07:20> Course <Yousuf Rutherford - Last Filed: 11/04/22 07:20> Vital Signs 11/04/22 11/04/22 11/04/22 04:02 06:48 09:41 Temperature 98.3 F Pulse Rate 88 92 89 Respiratory 16 16 18 Rate Blood Pressure 118/64 117/62 124/64 O2 Sat by Pulse 100 100 100 Oximetry - Reevaluation(s) Reevaluation #1: 11/04/22 07:21 Medical record is reviewed (Yousuf Rutherford) Reevaluation #2: 11/04/22 07:21 Patient informed of results and questions answered (Yousuf Rutherford) Reevaluation #3: 11/04/22 07:21 patient does have improvement pain control here in the ER (Yousuf Rutherford) Reevaluation #5: 11/04/22 07:21 Was pt. sent in by a medical professional or institution? @ -no Did you speak to anyone other than the patient for history? @ -no Did you review nursing and triage notes? @ -agree Were old charts reviewed? @ -no prior Differential Diagnosis? @ -no prior EKG interpreted by me (3pts min.)? @ -[none] X-rays interpreted by me (1pt min.)? @ -[none] CT interpreted by me (1pt min.)? @ -[none] U/S interpreted by me (1pt. min.)? @ -[none] What testing was considered but not performed? (CT, X-rays, U/S, labs)? Why? @ no What meds were considered but not given? Why? @ -[none] Did you discuss the management of the patient with other professionals? @ -no Did you reconcile home meds? @ -[none] Was smoking cessation discussed for >3mins.? @ -[none] Was critical care preformed (if so, how long)? @ -[none] Were there social determinants of health that impacted care today? How? (Homelessness, low income, unemployed, alcoholism, drug addiction, transportation, low edu. Level, literacy, decrease access to med. care, penitentiary, rehab)? @ -no Was there de-escalation of care discussed even if they declined? (Discuss DNR or withdrawal of care, Hospice)? @ -no What co-morbidities impacted this encounter? (DM, HTN, Smoking, COPD, CAD, Cancer, CVA, Hep., AIDS, mental health diagnosis, sleep apnea, morbid obesity)? @ -no Was patient admitted / discharged? @ -dc ] Undiagnosed new problem with uncertain prognosis? @ -[none] Drug Therapy requiring intensive monitoring for toxicity (Heparin, Nitro, Insulin, Cardizem)? @ -[none] Were any procedures done? @ -[none] Diagnosis/symptom? @ -[default] Acute, or Chronic, or Acute on Chronic? @ -[default] Uncomplicated (without systemic symptoms) or Complicated (systemic symptoms)? @ -[default] Side effects of treatment? @ -[none] Exacerbation, Progression, or Severe Exacerbation] @ -[no] Poses a threat to life or bodily function? @ -[no] (Yousuf Rutherford) Medical Decision Making - Lab Data Result diagrams: 11/04/22 04:53 11/04/22 04:53 <Yousuf Rutherford - Last Filed: 11/04/22 07:20> - Lab Data Result diagrams: 11/04/22 04:53 11/04/22 04:53 <Wyatt Villareal - Last Filed: 11/04/22 11:10> - Medical Decision Making Patient was sent out to me pending results of imaging. Patient is a history of metastatic cancer with chronic pain, body swelling. Patient's chronic anemia. Her labs showed very mildly elevated liver function tests and alk phos. Patient's pain is being treated which is the primary reason why she is here. KUB x-ray as well as gallbladder ultrasound were both ordered for evaluation of the abdomen. Abdominal x-ray shows nonspecific bowel gas pattern without evidence of acute process. Patient's gallbladder ultrasound revealed no evidence of cholecystitis. Patient does have some adenomyomatosis possibly the anterior wall but no other findings. No evidence of cholecystitis. Radiology notes Very similar to ultrasound from 2 days ago. No change. I did the patient and her family and the results of imaging. Patient is a plan to follow up with Dr. Farmer early next week for further therapy. She will be given one dose of pain meds as well as a dose of Lasix prior to discharge at her request. She was in agreement this plan. We discussed her symptoms of likely secondary to her metastatic cancer. There is a plan outpatient to place the patient on pain medications, and ask her to oxycodone. I will not provide her with any further pain meds at this time as she has an appointment Dr. Famrer Saturday or Saturday of next week. She has fentanyl patches and [place] at home. Recommended she start MiraLAX. I instructed the patient to follow up with their PCP in the next 1-3 days. I explained that the patient should return to the emergency department if they experience any worsening symptoms. Strict return precautions were discussed with the patient. The patient expressed understanding of these instructions. I answered all questions that the patient had. The patient was discharged home in fair condition with their prescriptions and follow up information. Diagnosis/symptom? @ -Metastatic cancer Acute, or Chronic, or Acute on Chronic? @ -Chronic Uncomplicated (without systemic symptoms) or Complicated (systemic symptoms)? @ -Complicated Side effects of treatment? @ -none Exacerbation, Progression, or Severe Exacerbation] @ -no Poses a threat to life or bodily function? @ -Yes can result in significant morbidity and mortality. Diagnosis/symptom? @ -Chronic pain Acute, or Chronic, or Acute on Chronic? @ -Chronic Uncomplicated (without systemic symptoms) or Complicated (systemic symptoms)? @ -Uncomplicated Side effects of treatment? @ -none Exacerbation, Progression, or Severe Exacerbation] @ -no Poses a threat to life or bodily function? @ -Yes can result in significant morbidity and mortality. (Wyatt Villareal) - Lab Data Lab Results 11/04/22 11/04/22 11/04/22 Range/Units 04:53 04:53 04:53 WBC 7.7 (3.8-10.6) k/uL RBC 2.32 L (3.80-5.40) m/uL Hgb 7.5 L D (11.4-16.0) gm/dL Hct 23.2 L (34.0-46.0) % MCV 99.9 D (80.0-100.0) fL MCH 32.4 (25.0-35.0) pg MCHC 32.4 (31.0-37.0) g/dL RDW 23.6 H (11.5-15.5) % Plt Count 77 L D (150-450) k/uL MPV 8.1 Neutrophils % 84 % Lymphocytes % 8 % Monocytes % 5 % Eosinophils % 1 % Basophils % 0 % Neutrophils # 6.4 (1.3-7.7) k/uL Lymphocytes # 0.6 L (1.0-4.8) k/uL Monocytes # 0.3 (0-1.0) k/uL Eosinophils # 0.1 (0-0.7) k/uL Basophils # 0.0 (0-0.2) k/uL Manual Slide Review Performed Poikilocytosis Moderate Anisocytosis Moderate Macrocytosis Moderate Sodium 134 L (137-145) mmol/L Potassium 4.0 (3.5-5.1) mmol/L Chloride 104 (98-107) mmol/L Carbon Dioxide 26 (22-30) mmol/L Anion Gap 4 mmol/L BUN 36 H (7-17) mg/dL Creatinine 0.98 (0.52-1.04) mg/dL Est GFR (CKD-EPI)AfAm 71 (>60 ml/min/1.73 sqM) Est GFR (CKD-EPI)NonAf 62 (>60 ml/min/1.73 sqM) Glucose 128 H (74-99) mg/dL Plasma Lactic Acid Jamarc[place] 1.0 (0.7-2.0) mmol/L Calcium 7.8 L (8.4-10.2) mg/dL Total Bilirubin 0.7 (0.2-1.3) mg/dL AST 64 H (14-36) U/L ALT 83 H (4-34) U/L Alkaline Phosphatase 139 H (38-126) U/L Total Protein 5.8 L (6.3-8.2) g/dL Albumin 3.1 L (3.5-5.0) g/dL Amylase 84 (30-110) U/L Lipase 260 (23-300) U/L Urine Color Urine Appearance (Clear) Urine pH (5.0-8.0) Ur Specific [place] (1.001-1.035) Urine Protein (Negative) Urine Glucose (UA) (Negative) Urine Ketones (Negative) Urine Blood (Negative) Urine Nitrite (Negative) Urine Bilirubin (Negative) Urine Urobilinogen (<2.0) mg/dL Ur Leukocyte Esterase (Negative) Urine RBC (0-5) /hpf Urine WBC (0-5) /hpf Ur Squamous Epith Cells (0-4) /hpf Urine Bacteria (None) /hpf Urine Mucus (None) /hpf 11/04/22 Range/Units 06:48 WBC (3.8-10.6) k/uL RBC (3.80-5.40) m/uL Hgb (11.4-16.0) gm/dL Hct (34.0-46.0) % MCV (80.0-100.0) fL MCH (25.0-35.0) pg MCHC (31.0-37.0) g/dL RDW (11.5-15.5) % Plt Count (150-450) k/uL MPV Neutrophils % % Lymphocytes % % Monocytes % % Eosinophils % % Basophils % % Neutrophils # (1.3-7.7) k/uL Lymphocytes # (1.0-4.8) k/uL Monocytes # (0-1.0) k/uL Eosinophils # (0-0.7) k/uL Basophils # (0-0.2) k/uL Manual Slide Review Poikilocytosis Anisocytosis Macrocytosis Sodium (137-145) mmol/L Potassium (3.5-5.1) mmol/L Chloride (98-107) mmol/L Carbon Dioxide (22-30) mmol/L Anion Gap mmol/L BUN (7-17) mg/dL Creatinine (0.52-1.04) mg/dL Est GFR (CKD-EPI)AfAm (>60 ml/min/1.73 sqM) Est GFR (CKD-EPI)NonAf (>60 ml/min/1.73 sqM) Glucose (74-99) mg/dL Plasma Lactic Acid [place] (0.7-2.0) mmol/L Calcium (8.4-10.2) mg/dL Total Bilirubin (0.2-1.3) mg/dL AST (14-36) U/L ALT (4-34) U/L Alkaline Phosphatase (38-126) U/L Total Protein (6.3-8.2) g/dL Albumin (3.5-5.0) g/dL Amylase (30-110) U/L Lipase (23-300) U/L Urine Color Light Yellow Urine Appearance Clear (Clear) Urine pH 5.0 (5.0-8.0) Ur Specific [place] 1.012 (1.001-1.035) Urine Protein Negative (Negative) Urine Glucose (UA) Negative (Negative) Urine Ketones Negative (Negative) Urine Blood Negative (Negative) Urine Nitrite Negative (Negative) Urine Bilirubin Negative (Negative) Urine Urobilinogen <2.0 (<2.0) mg/dL Ur Leukocyte Esterase Small H (Negative) Urine RBC 1 (0-5) /hpf Urine WBC 6 H (0-5) /hpf Ur Squamous Epith Cells 3 (0-4) /hpf Urine Bacteria Rare H (None) /hpf Urine Mucus Rare H (None) /hpf Disposition <Yousuf Rutherford - Last Filed: 11/04/22 07:20> Is patient prescribed a controlled substance at d/c from ED?: No Time of Disposition: 09:45 <Wyatt Villareal - Last Filed: 11/04/22 11:10> Clinical Impression: Cancer, Pain Disposition: HOME SELF-CARE Condition: Fair Instructions (If sedation given, give patient instructions): Pain Management (ED) Referrals: Shira Farmer MD [Primary Care Provider] - 1-2 days
[2022-11-04 05:14] LABS: Anisocytosis Moderate; Basophils % (A) 0 %; Eosinophils # (A) 0.1 k/uL (0-0.7); Eosinophils % (A) 1 %; HCT 23.2 % (34.0-46.0); Lymphocytes # (A) 0.6 k/uL (1.0-4.8); Lymphocytes % (A) 8 %; MCH 32.4 pg (25.0-35.0); MCHC 32.4 g/dL (31.0-37.0); Macrocytosis Moderate; Mean Platelet Volume 8.1; Monocytes # (A) 0.3 k/uL (0-1.0); Monocytes % (A) 5 %; Neutrophils # (A) 6.4 k/uL (1.3-7.7); Neutrophils % (A) 84 %; Poikilocytosis Moderate; RBC 2.32 m/uL (3.80-5.40); RDW 23.6 % (11.5-15.5); WBC 7.7 k/uL (3.8-10.6)
[2022-11-04 05:26] LABS: Albumin 3.1 g/dL (3.5-5.0); Calcium 7.8 mg/dL (8.4-10.2); Total Bilirubin 0.7 mg/dL (0.2-1.3); Total Protein 5.8 g/dL (6.3-8.2)
[2022-11-04 05:57] LABS: HGB 7.5 gm/dL (11.4-16.0); MCV 99.9 fL (80.0-100.0)
[2022-11-04 06:22] LABS: Platelet Count 77 k/uL (150-450)
[2022-11-04] MEDS ORDERED: HYDROmorphone 0.5 MG/0.5 ML SYRINGE IVP STA ×2 (06:57→09:56)
[2022-11-04 07:04] LABS: Appearance,Urine Clear (Clear); Bacteria,Urine Rare /hpf; Bilirubin,Urine Negative (Negative); Blood,Urine Negative (Negative); Color,Urine Light Yellow; Glucose,Urine (UA) Negative (Negative); Ketones,Urine Negative (Negative); Leukocyte Esterase,Urine Small (Negative); Mucus,Urine Rare /hpf; Nitrite,Urine Negative (Negative); Protein,Urine Negative (Negative); RBC,Urine 1 /hpf (0-5); Specific Gravity,Urine 1.012 (1.001-1.035); Squamous Epithelial Cell,Urine 3 /hpf (0-4); Urobilinogen,Urine <2.0 mg/dL (<2.0); WBC,Urine 6 /hpf (0-5)
--- NOTE | 2022-11-04 08:40 | US ---
EXAMINATION TYPE: US gallbladder DATE OF EXAM: 11/04/2022 COMPARISON: US 3 days ago, prev PET CT CLINICAL HISTORY: pain. ABD pain, h/o lung CA with known metastasis TECHNIQUE: Multiple sonographic images of the right upper quadrant are obtained. FINDINGS: EXAM MEASUREMENTS: Liver Length: 16.8 cm Gallbladder Wall: 0.3 cm CBD: 0.7 cm Right Kidney: 10.5 x 3.9 x 5.0 cm Pancreas: wnl, tail obscured by overlying bowel gas Liver: Multiple solid lesions visualized (up to 3 in left lobe, up to 3 in right lobe, largest in ea ch lobe measured left lobe= 3.7 x 2.7 x 3.6 cm right lobe= 3.1 x 2.3 x 2.8 cm Gallbladder: wall thickness upper limits of normal, probable adenomyomatosis anterior wall with come t tail artifact. Evidence for sonographic Finch's sign: No CBD: wnl Right Kidney: wnl Similar findings to ultrasound performed 3 days prior IMPRESSION: 1. Redemonstration of hepatic lesions which may have been FDG avid on prior PET on 09/08/2022 an most consistent with metastatic disease. 2. No evidence for acute process. 3. Adenomyomatosis of the anterior gallbladder wall suggested.
--- NOTE | 2022-11-04 09:07 | XR ---
EXAMINATION TYPE: XR KUB portable DATE OF EXAM: 11/04/2022 8:47 AM INDICATION: Patient age:Female; 62 years old; Reason for study: pain; COMPARISON: PET/CT 09/08/2022 TECHNIQUE: One radiographic view of the abdomen was obtained. FINDINGS: The bowel gas pattern is nonspecific without dilated loops of small or large bowel. There i s no evidence for organomegaly or pneumoperitoneum. The osseous structures are intact. . Fecal mater ial and gas are demonstrated throughout the colon and rectum. Calcification projects over the left upper quadrant consistent with splenic artery calcifications on prior CT. IMPRESSION: Nonspecific bowel gas pattern without radiographic evidence for acute process.
[2022-11-04 09:42] VITALS: BP 124/64; PULSE 89; RESP 18
[2022-11-04] MEDS ORDERED: FUROSEMIDE 10 MG/ML 4 ML VIAL IV STA (09:55)
== END 2022-11-04 10:35 | disposition home or self-care (01) ==
LOC: EC 03:40
DX: G89.3 Neoplasm related pain (acute) (chronic) (principal); C34.90 Malignant neoplasm of unspecified part of unspecified bronchus or lung; C79.51 Secondary malignant neoplasm of bone; J44.9 Chronic obstructive pulmonary disease, unspecified; I10 Essential (primary) hypertension; Z87.891 Personal history of nicotine dependence; Z79.899 Other long term (current) drug therapy; Z91.013 Allergy to seafood; Z88.5 Allergy status to narcotic agent; Z91.048 Other nonmedicinal substance allergy status
CPT/HCPCS: 96375 ×3; 96376 ×3; 96361 ×6; 96374 ×2; 99285 ×2; 36415; 80053; 82150; 83605; 83690; 85025; 81001; 74018; 76705; J1940; J2405; J1170 ×2